=== PATIENT | male | born 1940 | race Caucasian/White ===

== ENCOUNTER → 2024-03-19 | Outpatient (CLI) | payer MEDICARE, SELFPAY ==
[2024-03-19 08:42] LABS: Albumin, Serum 4.8 gm/dL (3.4-4.8); Anion Gap 8 (7-16); BUN/Creatinine Ratio 18 Ratio (12-20); Blood Urea Nitrogen 16 mg/dL (9-23); Calcium 10.3 mg/dL (8.3-10.6); Calcium (Corrected) 10.3 mg/dL (8.5-10.1); Carbon Dioxide 28.4 mMol/L (20.0-31.0); Chloride 105 mMol/L (98-107); Creatinine (Component) 0.9 mg/dL (0.6-1.3); Glucose 97 mg/dL (74-106); Osmolality,Calculated 282 (275-295); Phosphorous 3.1 mg/dL (2.4-5.1); Sodium 141 mMol/L (136-145); eGFR > 60 See Note
== END | disposition home or self-care (01) ==
LOC: COPL 07:46
PROVIDERS: PCP Internal Medicine; Referring Provider Internal Medicine; Visit Provider Internal Medicine
DX: N17.9 Acute kidney failure, unspecified (principal); I10 Essential (primary) hypertension
CPT/HCPCS: 36415; 80069

== ENCOUNTER 2024-04-21 05:23 | Emergency (ER) | payer MEDICARE, SELFPAY ==
[2024-04-21 05:24] VITALS: BMI 22.8
[2024-04-21 05:42] VITALS: BP 133/83; PULSE 53; RESP 19; TEMP 36.8; O2SAT 99
[2024-04-21] MEDS: MORPHINE SULF INJ 10 MG/ML VIAL 2 MG IM (07:09)
[2024-04-21] MEDS: AMOXICILLIN 250 MG CAPSULE 1000 MG PO (07:10)
--- NOTE | 2024-04-21 07:11 | EDNOTE_ITS ---
ED Ear RME/HPI General Chief complaint: Ear Stated complaint: R EAR ACHE Time Seen by Provider: 04/21/24 06:29 Arrival date/time: 04/21/24 05:23 RME / HPI RME / HPI Narrative: 83-year-old patient presents emergency department with complaint of right earache for the past 2 days patient saw PCP and was prescribed ofloxacin otic but states that medication is not helping his ear pain. He denies loss of hearing and he denies ear drainage. Patient is requesting pain medications for the ear pain. Related Data Home Medications ?Medication ?Instructions ?Recorded ?Confirmed aspirin 325 mg tablet 325 mg PO QDAY ##0 08/04/13 12/25/23 prasugrel 10 mg tablet (Effient) 10 mg PO QDAY #0 tabs 03/09/17 12/25/23 metformin 850 mg tablet 850 mg PO TID 06/02/22 12/24/23 nitroglycerin 0.4 mg sublingual 0.4 mg buccal PRN PRN Chest Pain 06/02/22 12/24/23 tablet temazepam 30 mg capsule 30 mg PO QDAY PRN Insomnia 06/02/22 12/24/23 atorvastatin 80 mg tablet 80 mg PO HS 12/24/23 12/24/23 megestrol 400 mg/10 mL (40 mg/mL) 400 mg PO QDAY 12/24/23 12/24/23 oral suspension Previous Rx's ?Medication ?Instructions ?Recorded metoprolol succinate 25 mg 25 mg PO QDAY 30 days #30 tabs 12/26/23 tablet,extended release 24 hr acetaminophen 500 mg capsule 500 mg PO QID #40 caps 04/21/24 amoxicillin 500 mg capsule 500 mg PO TID #30 caps 04/21/24 Allergies Allergy/AdvReac Type Severity Reaction Status Date / Time No Known Allergies Allergy Verified 12/23/23 18:22 Review of Systems Review of Systems Systems Reviewed: All systems reviewed, normal except as documented Constitutional Constitutional: Reports system reviewed and no additional complaints, except as documented ENT Ears, Nose, Mouth, and Throat: Reports system reviewed and no additional complaints, except as documented and Reports otalgia Musculoskeletal Musculoskeletal: Reports system reviewed and no additional complaints, except as documented ED Exam General General appearance: Present alert and in no apparent distress Head Head exam: Present atraumatic and normocephalic Eye Eye exam: Present normal appearance ENT ENT exam: Present other (Right TM erythematous right ear canal also erythematous) Chest Chest inspection: Present normal inspection and symmetric chest wall rise Respiratory Respiratory exam: Present normal lung sounds bilaterally Cardiovascular Cardiovascular exam: Present regular rate and normal rhythm Extremities Exam Extremities exam: Present normal inspection and full ROM Neurological Exam Neurological exam: Present alert and oriented X3 Course Quality Measures none Orders Category Date Time Status Amoxicillin Cap [Amoxil Cap] Med 04/21/24 06:30 Discontinued 1,000 mg PO X1 ONE Morphine Inj Med 04/21/24 06:30 Discontinued 2 mg IM X1 ONE Vital Signs Vital signs: Vital Signs Temperature 98.2 F 04/21/24 05:42 Pulse Rate 53 L 04/21/24 05:42 Respiratory Rate 19 04/21/24 05:42 Blood Pressure 133/83 H 04/21/24 05:42 Pulse Oximetry (%) 99 04/21/24 05:42 Oxygen Delivery Method Room Air 04/21/24 05:42 Ear MDM Narrative MDM Narrative:: Signs and symptoms consistent with otitis media and otitis externa since patient is currently on ofloxacin otic I would DC patient with oral antibiotic for otitis media. Patient data External records reviewed:: None Clinical information provided by:: patient Social determinants that could affect healthcare access:: none Patient has the following chronic illnesses:: DM How is presenting disease/condition affected by chronic disease/condition?: uneffected by Evaluation data The following diagnostics were reviewed and interpreted by me:: other (specify) (na) Lab and/or radiology exams considered but not ordered:: na Interpretation Summary: na Medications / Prescriptions Medications or Prescriptions considered but not ordered:: meds considered and prescribed Medication administrations:: Medication Administration History Discontinued Medications Amoxicillin (Amoxicillin 250 Mg Capsule) 1,000 mg PO X1 ONE Stop: 04/21/24 06:31 Morphine Sulfate (Morphine Sulf Inj 10 Mg/Ml Vial) 2 mg IM X1 ONE Stop: 04/21/24 06:31 per above Consultations Consultation(s) initiated? (list below): No Diagnosis Most likely diagnosis given after review of the tests above:: na Admission Indicated Admission indicated?: not indicated Admission Request Was there a request for admission?: No Disposition Plan Disposition Plan: Discharge Discharge Attestation Discharge Attestation: The patient and all family members were given an opportunity to ask questions and understood the discharge instructions. Discharge instructions specifically effects, indications for sooner follow up or return to the emergency department, and the expected course of current diagnosis. Patient condition: Stable Discharge Plan Plan Patient Disposition: HOME (Self Care) Prescriptions/Referrals Prescriptions/Med Rec: New amoxicillin 500 mg capsule 500 mg PO TID Qty: 30 0RF acetaminophen 500 mg capsule 500 mg PO QID Qty: 40 0RF No Action aspirin 325 MG tablet 325 mg PO QDAY Qty: 0 Hold Instructions: Resume on 12/20/21. prasugrel [Effient] 10 MG tablet 10 mg PO QDAY Qty: 0 metformin 850 mg tablet 850 mg PO TID Patient Comments: TAKE 1 TABLET BY MOUTH THREE TIMES DAILY temazepam 30 mg capsule 30 mg PO QDAY PRN (Reason: Insomnia) Patient Comments: TAKE 1 CAPSULE BY MOUTH ONCE DAILY NEEDED nitroglycerin 0.4 mg Tablet, Sublingual 0.4 mg BUCCAL PRN PRN (Reason: Chest Pain) megestrol 400 mg/10 mL (40 mg/mL) Suspension 400 mg PO QDAY atorvastatin 80 mg tablet 80 mg PO HS metoprolol succinate 25 mg Tablet Extended Release 24 Hr 25 mg PO QDAY 30 Days Qty: 30 2RF Problem List Clinical Impression: Otitis media, Otalgia of right ear Patient/Caregiver Discharge Instructions Education Materials: ED Otitis Media Antibiotic ... Print Language: Kiswahili Stand Alone Forms: Bonnie Award Info., Patient Portal Info Letter
== END 2024-04-21 07:50 | disposition home or self-care (01) ==
LOC: SERX 07:30
PROVIDERS: Emergency Provider Emergency Medicine; PCP Internal Medicine
DX: H66.91 Otitis media, unspecified, right ear (principal)
CPT/HCPCS: 96372; 99284; J2270; A9270

== ENCOUNTER → 2024-05-23 | Outpatient (CLI) | payer MEDICARE, SELFPAY ==
[2024-05-23 09:51] LABS: Collection Type, Urine Clean Catch; Squamous Epithelial Cell,Urine 0 /hpf (0-5)
[2024-05-23 10:13] LABS: Basophils # (Auto) 0.1 Thou/mm3 (0.0-0.2); Basophils % (Auto) 1 % (0-2.5); Eosinophils # (Auto) 0.2 Thou/mm3 (0.0-0.5); Eosinophils % (Auto) 2 % (0-10); Hematocrit 36.1 % (41.0-53.0); Hemoglobin 11.6 g/dL (13.5-16.0); Immature Granulocytes % (Auto) 0 % (0-0); Immature Granulocytes Auto 0.01 Thou/mm3 (0.00-0.00); Lymphocytes # (Auto) 1.2 Thou/mm3 (1.0-4.8); Lymphocytes % (Auto) 18 % (10-50); Mean Corpuscular HGB Conc 32.1 g/dl (31.0-37.0); Mean Corpuscular Hemoglobin 27.4 pg (25.0-35.0); Mean Corpuscular Volume 85 fL (80-100); Monocytes # (Auto) 0.7 Thou/mm3 (0.0-0.8); Monocytes % (Auto) 11 % (0-12); Neutrophils # (Auto) 4.4 Thou/mm3 (1.8-7.7); Neutrophils % (Auto) 68 % (37-80); Nucleated Red Blood Cell % 0 /100 WBC (0); Platelet Count 309 Thou/mm3 (140-440); RDW Standard Deviation 46.7 fL (35.1-43.9); Red Blood Count 4.24 Miln/mm3 (4.50-5.90); White Blood Count 6.5 Thou/mm3 (3.8-10.6)
[2024-05-23 10:14] LABS: Bilirubin,Urine Negative (Negative); Blood,Urine Negative (Negative); Clarity,Urine Clear (Clear/Hazy); Color,Urine Yellow (Lt Yel-Yel); Glucose, Urine Negative (Negative); Ketones,Urine Negative (Negative); Leukocyte Esterase,Urine Negative (Negative); Nitrite,Urine Negative (Negative); PH,Urine 5.5 (5.0-7.0); Protein,Urine Trace (Neg - Trace); RBC,Urine 3 /hpf (0-3); Specific Gravity,Urine 1.019 (1.001-1.035); Urobilinogen,Urine Negative mg/dL (0.0-1.0); WBC,Urine 1 /hpf (0-5)
[2024-05-23 10:31] LABS: Glucose Estimated Average 120 mg/dL (80-131); Hemoglobin A1C 5.8 % Hgb (4.8-6.0)
[2024-05-23 10:44] LABS: Albumin, Serum 4.8 gm/dL (3.4-4.8); Alkaline Phosphatase 139 U/L (46-116); Anion Gap 12 (7-16); Aspartate Amino Transferase 13 U/L (0-34); BUN/Creatinine Ratio 10 Ratio (12-20); Bilirubin,Total 0.3 mg/dL (0.3-1.2); Blood Urea Nitrogen 10 mg/dL (9-23); Calcium 9.4 mg/dL (8.3-10.6); Calcium (Corrected) 9.4 mg/dL (8.5-10.1); Carbon Dioxide 24.9 mMol/L (20.0-31.0); Cardiac Risk Estimate 2.4 RATIO (4.0-6.7); Chloride 103 mMol/L (98-107); Cholesterol 128 mg/dL (132-200); Globulin 2.4 gm/dL (2.3-3.5); Glucose 91 mg/dL (74-106); HDL Cholesterol 53 mg/dL (40-60); LDL Cholesterol,Calculated 56 mg/dL (0-130); Osmolality,Calculated 278 (275-295); Potassium 4.9 mMol/L (3.4-5.1); Sodium 140 mMol/L (136-145); Total Protein 7.2 gm/dL (5.7-8.2); Triglycerides 95 mg/dL (30-150); eGFR > 60 See Note
[2024-05-23 10:46] LABS: Creatinine MALB Rnd Ur 160 mg/dL (30-125); Microalbumin Creat Ratio 13 mg/gCrea (<30); Microalbumin, Random Urine 21 mg/L (0-300)
[2024-05-23 10:53] LABS: Alanine Aminotransferase 10 U/L (10-49)
== END | disposition home or self-care (01) ==
LOC: COPL 09:01
PROVIDERS: PCP Internal Medicine; Referring Provider Internal Medicine; Visit Provider Internal Medicine
DX: I12.9 Hypertensive chronic kidney disease with stage 1 through stage 4 chronic kidney disease, or unspecified chronic kidney disease (principal); E11.22 Type 2 diabetes mellitus with diabetic chronic kidney disease; N18.30 Chronic kidney disease, stage 3 unspecified; E78.5 Hyperlipidemia, unspecified
CPT/HCPCS: 36415; 80053; 80061; 81001; 82043; 82570; 83036; 85025

== ENCOUNTER 2024-06-03 02:39 | Emergency (ER) | payer MEDICARE, SELFPAY ==
[2024-06-03 02:44] VITALS: BMI 24.3
[2024-06-03 02:54] VITALS: BP 131/68; PULSE 89; RESP 19; TEMP 36.6; O2SAT 97
--- NOTE | 2024-06-03 03:04 | XR_ITS ---
Examination: AP lateral chest 2 views Technique: Upright AP lateral chest 2 views Exam date and time: June 03, 2024 0318 hrs. Comparison July 31, 2023 Indications: Coughing shortness of breath today. Findings: Mild heart failure Mild enlargement cardiac contour CABG Prominent vascular congestion Early edema at the lung bases Small bilateral pleural effusions Moderate hyperexpansion Impression: COPD Mild heart failure
--- NOTE | 2024-06-03 04:33 | PD.EDURI ---
Upper Respiratory Inf. RME/HPI General Chief Complaint: Flu Like Symptoms Stated Complaint: cough and weakness Time Seen by Provider: 06/03/24 02:58 Arrival date/time: 06/03/24 02:39 83-year-old male reports with complaints of weakness cough congestion and bodyaches for several days. Patient is currently being treated with azithromycin for possible upper respiratory infection. Patient states that he is on day 3 of the medications with no improvement of symptoms. Patient also reports that his family has had about flu going around the house and his was recently diagnosed with pneumonia who is also on azithromycin. Patient states he has been taking medication as directed as well as [id number] medications for symptoms. He denies shortness of breath chest pain dizziness blurred vision ringing in ears nausea or vomiting or abdominal pain Limitations: no limitations Related Data Home Medications ?Medication ?Instructions ?Recorded ?Confirmed aspirin 325 mg tablet 325 mg PO QDAY ##0 08/04/13 12/25/23 prasugrel 10 mg tablet (Effient) 10 mg PO QDAY #0 tabs 03/09/17 12/25/23 metformin 850 mg tablet 850 mg PO TID 06/02/22 12/24/23 nitroglycerin 0.4 mg sublingual 0.4 mg buccal PRN PRN Chest Pain 06/02/22 12/24/23 tablet temazepam 30 mg capsule 30 mg PO QDAY PRN Insomnia 06/02/22 12/24/23 atorvastatin 80 mg tablet 80 mg PO HS 12/24/23 12/24/23 megestrol 400 mg/10 mL (40 mg/mL) 400 mg PO QDAY 12/24/23 12/24/23 oral suspension Previous Rx's ?Medication ?Instructions ?Recorded metoprolol succinate 25 mg 25 mg PO QDAY 30 days #30 tabs 12/26/23 tablet,extended release 24 hr acetaminophen 500 mg capsule 500 mg PO QID #40 caps 04/21/24 amoxicillin 500 mg capsule 500 mg PO TID #30 caps 04/21/24 cefdinir 300 mg capsule 300 mg PO BID 10 days #20 caps 06/03/24 Allergies Allergy/AdvReac Type Severity Reaction Status Date / Time No Known Allergies Allergy Verified 06/03/24 02:45 Review of Systems Constitutional Constitutional: Reports fatigue, Denies fever(s) and Reports weakness ENT Ears, Nose, Mouth, and Throat: Denies sinus pressure, Denies sore throat and Denies vertigo Cardiovascular Cardiovascular: Denies chest pain, Denies dyspnea and Denies syncope Respiratory Respiratory: Reports cough and Denies dyspnea Gastrointestinal Gastrointestinal: Denies nausea and Denies vomiting Integumentary/Breasts Skin/Breast: Denies rash and Denies skin pain Neurologic Neurologic: Denies syncope, Denies vertigo and Reports weakness Endocrine Endocrine: Reports fatigue ED Exam General Limitations: Present no limitations General appearance: Present alert and lethargic Head Head exam: Present atraumatic Eye Eye exam: Present normal appearance, PERRL and EOMI ENT ENT exam: Present normal exam, normal oropharynx and mucous membranes moist Neck Neck exam: Present normal inspection, full ROM and trachea midline Chest Chest inspection: Present normal inspection and symmetric chest wall rise Respiratory Respiratory exam: Present normal lung sounds bilaterally Cardiovascular Cardiovascular exam: Present regular rate, normal rhythm and normal heart sounds Abdominal Exam Abdominal exam: Present soft and normal bowel sounds Extremities Exam Extremities exam: Present normal inspection and full ROM Back Exam Back exam: Present normal inspection and full ROM Neurological Exam Neurological exam: Present alert, oriented X3 and CN II-XII intact Psychiatric Psychiatric exam: Present normal affect and normal mood Skin Skin exam: Present warm, dry, intact and normal color Course Course Course Narrative: 83-year-old male reports with complaints of cough weakness and bodyaches for several days. Patient's COVID and influenza are negative chest x-ray shows patchy infiltrates CBC is unremarkable CMP is remarkable for elevated liver enzymes patient was given Rocephin 1 g IV along with normal saline 1 g patient tolerated well he will be discharged home as he is stable and nontoxic-appearing with stable vital signs, in no respiratory distress as his oxygen saturations are 100% on room air. He will be prescribed cefdinir 300 mg twice daily x 7 days and we will discontinue the azithromycin given his elevated liver enzymes as well as drug failure he is advised to follow-up with his primary care provider in 24-48 hours to address pneumonia as well as elevated liver enzymes or return to the emergency department if symptoms should worsen. I consulted with Dr. Fish who agreed with this plan Quality Measures none Orders Category Date Time Status Bedside COVID-19 Antigen Test NOW Care 06/03/24 03:04 Active Bedside Influenza A&B Antigen Test NOW Care 06/03/24 03:04 Completed XR chest 2V Stat Exams 06/03/24 03:04 Taken CBC Stat Lab 06/03/24 04:30 Completed CMP [Comprehensive Metabolic Panel] Stat Lab 06/03/24 04:30 Completed Sodium Chloride 0.9% 1000 ml [Ns] 1,000 ml Med 06/03/24 03:36 Discontinued IV 999 mls/hr cefTRIAXone [Rocephin] 1,000 mg Med 06/03/24 05:34 Active Sodium Chloride 0.9% (Partial) [NS (Partial)] 50 ml IV X1 cefTRIAXone/D5w 1gm IV premix [Rocephin/D5w 1gm IV Med 06/03/24 04:48 Discontinued premix] 50 ml IV X1 Vital Signs Vital signs: Vital Signs Temperature 97.8 F 06/03/24 02:54 Pulse Rate 89 06/03/24 02:54 Respiratory Rate 19 06/03/24 02:54 Blood Pressure 131/68 H 06/03/24 02:54 Pulse Oximetry (%) 97 06/03/24 02:54 Oxygen Delivery Method Room Air 06/03/24 02:54 Upper Respiratory Infection Patient data External records reviewed:: None Clinical information provided by:: patient Social determinants that could affect healthcare access:: none Patient has the following chronic illnesses:: none How is presenting disease/condition affected by chronic disease/condition?: no chronic disease Evaluation data The following diagnostics were reviewed and interpreted by me:: lab results and radiology exam(s) Lab and/or radiology exams considered but not ordered:: none Interpretation Summary: Patchy infiltrates noted on chest x-ray, flu and COVID-negative Medications / Prescriptions Medications or Prescriptions considered but not ordered:: None Medication administrations:: Medication Administration History Ceftriaxone Sodium 1,000 mg/ (Sodium Chloride) 50 mls @ 100 mls/hr IV X1 ONE Stop: 06/03/24 06:03 Last Admin: 06/03/24 05:37 Dose: 100 mls/hr Documented By: TC Discontinued Medications Sodium Chloride (Ns) 1,000 mls @ 999 mls/hr IV .Q1H1M ONE Stop: 06/03/24 04:36 Last Admin: 06/03/24 04:38 Dose: 999 mls/hr Documented By: EF Ceftriaxone Sodium/Dextrose (Rocephin/D5w 1gm Iv Premix) 50 mls @ 100 mls/hr IV X1 ONE Stop: 06/03/24 05:17 Last Admin: 06/03/24 05:35 Dose: Not Given Documented By: TC Non-Admin Reason: Duplicate Medication on eMAR As above Consultations Consultation(s) initiated? (list below): No Diagnosis Upper Respiratory Differential Diagnosis: upper respiratory infection, bronchitis and influenza Most likely diagnosis given after review of the tests above:: Pneumonia Admission Indicated Admission indicated?: not indicated Admission Request Was there a request for admission?: No Disposition Plan Disposition Plan: Discharge Discharge Attestation Discharge Attestation: The patient and all family members were given an opportunity to ask questions and understood the discharge instructions. Discharge instructions specifically effects, indications for sooner follow up or return to the emergency department, and the expected course of current diagnosis. Patient condition: Stable Discharge Plan Plan Patient Disposition: HOME (Self Care) Prescriptions/Referrals Prescriptions/Med Rec: New cefdinir 300 mg capsule 300 mg PO BID 10 Days Qty: 20 0RF No Action aspirin 325 MG tablet 325 mg PO QDAY Qty: 0 prasugrel [Effient] 10 MG tablet 10 mg PO QDAY Qty: 0 metformin 850 mg tablet 850 mg PO TID Patient Comments: TAKE 1 TABLET BY MOUTH THREE TIMES DAILY temazepam 30 mg capsule 30 mg PO QDAY PRN (Reason: Insomnia) Patient Comments: TAKE 1 CAPSULE BY MOUTH ONCE DAILY NEEDED nitroglycerin 0.4 mg Tablet, Sublingual 0.4 mg BUCCAL PRN PRN (Reason: Chest Pain) amoxicillin 500 mg capsule 500 mg PO TID Qty: 30 0RF acetaminophen 500 mg capsule 500 mg PO QID Qty: 40 0RF megestrol 400 mg/10 mL (40 mg/mL) Suspension 400 mg PO QDAY atorvastatin 80 mg tablet 80 mg PO HS metoprolol succinate 25 mg Tablet Extended Release 24 Hr 25 mg PO QDAY 30 Days Qty: 30 2RF Referrals: Kevin Huddleston MD [Primary Care Provider] - In 1 week Problem List Clinical Impression: Pneumonia, Elevated liver enzymes Patient/Caregiver Discharge Instructions Education Materials: ED Pneumonia (Adult) Additional Instructions: Pneumonia-take medications as directed hydrate well follow-up with your primary care provider in 24 to 48 hours Elevated liver enzymes follow-up with your primary care provider in 2 to 3 days for reevaluation of your liver enzymes Print Language: Bangladeshi Stand Alone Forms: Bonnie Award Info., Patient Portal Info Letter
[2024-06-03 04:36] LABS: Basophils % (Auto) 0 % (0-2.5); Eosinophils % (Auto) 0 % (0-10); Hematocrit 31.2 % (41.0-53.0); Hemoglobin 10.5 g/dL (13.5-16.0); Immature Granulocytes % (Auto) 0 % (0-0); Immature Granulocytes Auto 0.01 Thou/mm3 (0.00-0.00); Lymphocytes # (Auto) 0.9 Thou/mm3 (1.0-4.8); Lymphocytes % (Auto) 16 % (10-50); Mean Corpuscular HGB Conc 33.7 g/dl (31.0-37.0); Mean Corpuscular Hemoglobin 27.2 pg (25.0-35.0); Mean Corpuscular Volume 81 fL (80-100); Monocytes # (Auto) 0.7 Thou/mm3 (0.0-0.8); Monocytes % (Auto) 12 % (0-12); Neutrophils # (Auto) 4.2 Thou/mm3 (1.8-7.7); Neutrophils % (Auto) 72 % (37-80); Nucleated Red Blood Cell % 0 /100 WBC (0); Platelet Count 297 Thou/mm3 (140-440); RDW Standard Deviation 45.2 fL (35.1-43.9); Red Blood Count 3.86 Miln/mm3 (4.50-5.90); White Blood Count 5.8 Thou/mm3 (3.8-10.6)
[2024-06-03] MEDS: SODIUM CHLORIDE 0.9% 1000 ML 1,000 ML 999 ML IV (04:38)
[2024-06-03 04:52] LABS: Alanine Aminotransferase 204 U/L (10-49); Albumin, Serum 4.1 gm/dL (3.4-4.8); Albumin/Globulin Ratio 1.6 (1.2-2.2); Alkaline Phosphatase 104 U/L (46-116); Anion Gap 10 (7-16); Aspartate Amino Transferase 367 U/L (0-34); BUN/Creatinine Ratio 20 Ratio (12-20); Bilirubin,Total 0.5 mg/dL (0.3-1.2); Blood Urea Nitrogen 20 mg/dL (9-23); Calcium 9.1 mg/dL (8.3-10.6); Calcium (Corrected) 9.1 mg/dL (8.5-10.1); Carbon Dioxide 25.6 mMol/L (20.0-31.0); Chloride 98 mMol/L (98-107); Estimated Creatinine Clearance 57.9 mL/min (>60); Globulin 2.5 gm/dL (2.3-3.5); Glucose 104 mg/dL (74-106); Osmolality,Calculated 270 (275-295); Potassium 4.5 mMol/L (3.4-5.1); Sodium 134 mMol/L (136-145); Total Protein 6.6 gm/dL (5.7-8.2); eGFR > 60 See Note
[2024-06-03 05:02] VITALS: BP 131/87; PULSE 94; RESP 16; O2SAT 100
[2024-06-03] MEDS: SODIUM CHLORIDE 0.9% IV (05:37)
[2024-06-03] MEDS: CEFTRIAXONE IV (05:37)
[2024-06-03 08:10] VITALS: BP 131/72; PULSE 77; RESP 18; TEMP 37.5; O2SAT 98
== END 2024-06-03 08:10 | disposition home or self-care (01) ==
PROVIDERS: Physician Assistant; Emergency Provider Emergency Medicine; PCP Internal Medicine
DX: J18.9 Pneumonia, unspecified organism (principal)
CPT/HCPCS: 36415; 71046; 80053; 85025; 87400; 87811; 96361; 96365; 99284; J0696; J3490; J7030

== ENCOUNTER 2024-06-06 13:59 | Inpatient (IN) | payer MEDICARE, SELFPAY ==
--- NOTE | 2024-06-06 14:41 | XR_ITS ---
Examination: AP chest single view Technique one AP portable upright chest single view Exam date and time: June 06, 2024 1539 hours Comparison June 03, 2024 INDICATIONS: Difficulty breathing this week. FINDINGS: Mild heart failure Mild enlargement cardiac contour CABG Prominent vascular congestion Pneumonia and/or edema at the lung bases Prominent osteopenia IMPRESSION: Pneumonia and/or edema at the lung bases, clinical correlation advised
[2024-06-06] MEDS: SODIUM CHLORIDE 0.9% 1000 ML 1,000 ML 80 ML IV (15:28)
[2024-06-06 15:56] LABS: Basophils % (Auto) 0 % (0-2.5); Eosinophils % (Auto) 0 % (0-10); Hematocrit 29.7 % (41.0-53.0); Hemoglobin 9.8 g/dL (13.5-16.0); Immature Granulocytes % (Auto) 1 % (0-0); Immature Granulocytes Auto 0.08 Thou/mm3 (0.00-0.00); Lymphocytes # (Auto) 1.1 Thou/mm3 (1.0-4.8); Lymphocytes % (Auto) 14 % (10-50); Mean Corpuscular Hemoglobin 26.6 pg (25.0-35.0); Mean Corpuscular Volume 81 fL (80-100); Monocytes # (Auto) 0.8 Thou/mm3 (0.0-0.8); Monocytes % (Auto) 10 % (0-12); Neutrophils # (Auto) 5.8 Thou/mm3 (1.8-7.7); Neutrophils % (Auto) 75 % (37-80); Nucleated Red Blood Cell % 0 /100 WBC (0); Platelet Count 333 Thou/mm3 (140-440); Red Blood Count 3.68 Miln/mm3 (4.50-5.90); White Blood Count 7.7 Thou/mm3 (3.8-10.6)
[2024-06-06 16:00] VITALS: PULSE 76; PULSE 77; RESP 30; TEMP 36.6; O2SAT 94
[2024-06-06 16:05] LABS: INR 1.3 (0.9-1.3); Prothrombin Time 13.5 Seconds (9.0-12.2)
[2024-06-06 16:10] LABS: Alanine Aminotransferase 153 U/L (10-49); Albumin, Serum 3.6 gm/dL (3.4-4.8); Albumin/Globulin Ratio 1.5 (1.2-2.2); Alkaline Phosphatase 115 U/L (46-116); Anion Gap 9 (7-16); Aspartate Amino Transferase 114 U/L (0-34); BUN/Creatinine Ratio 13 Ratio (12-20); Bilirubin,Total 0.4 mg/dL (0.3-1.2); Blood Urea Nitrogen 10 mg/dL (9-23); Calcium 8.9 mg/dL (8.3-10.6); Calcium (Corrected) 9.2 mg/dL (8.5-10.1); Carbon Dioxide 25.7 mMol/L (20.0-31.0); Chloride 102 mMol/L (98-107); Creatinine (Component) 0.8 mg/dL (0.6-1.3); Globulin 2.4 gm/dL (2.3-3.5); Glucose 102 mg/dL (74-106); Osmolality,Calculated 272 (275-295); Potassium 4.2 mMol/L (3.4-5.1); Sodium 137 mMol/L (136-145); eGFR > 60 See Note
[2024-06-06] MEDS: PIPER/TAZO 2.25 GM 2.25 GM/50 ML BAG IV (16:12)
--- NOTE | 2024-06-06 19:28 | PD.NEPHHP ---
Documentation for date of: 06/06/24 History of Present Illness History of Present Illness Chief complaint: SOB, fatigue, failure to thrive History of present illness: Mr. Nelson is a 83 year old male with coronary artery disease(under Dr. 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 Patient was given p.o. antibiotics and sent home. Son brought him to my office and he was extremely weak with functional decline. Sent him to the hospital as a direct admit for evaluation of dehydration, hypotension, pneumonia, failure to thrive. Patient has been losing significant amount of weight since his dental workup last year. He lost more than 30 pounds. PMHx as above. Allergies: none PSHx: multivessel CABG (1995) and multiple stents as above, right IOL replacement FHx: heart disease and multiple cancers. Social Hx: former smoker. Home medications included Tylenol, aspirin, Lipitor, cefdinir, Megace, metformin, metoprolol, nitro as needed, Effient, temazepam Labs showed white count 7.7, hemoglobin 9.8, platelets 333. INR 1.3. Renal panel normal, AST 114, ALT 153, albumin 3.6, urinalysis negative. Chest x-ray showed pneumonia/edema at the lung bases. Patient admitted to the hospital with pneumonia, elevated liver enzymes and failure to thrive with dehydration. Home medications have been reconciled. Review of Systems Review of Systems Narrative Review of Systems: CONSTITUTIONAL: Patient complaining of fatigue, weight loss HEENT: Hearing issues CARDIOVASCULAR: Patient denies any chest pain, shortness of breath, swelling in the lower extremities. PULMONARY: Patient denies any shortness of breath, cough. GASTROINTESTINAL: Patient denies any abdominal pain, constipation, nausea, vomiting, diarrhea. Decreased appetite GENITOURINARY: Patient denies any urinary symptoms of burning or frequency or hematuria, denies any form in the urine. SKIN: Denies any rash. MUSCULOSKELETAL: Arthritis, gait imbalance NEUROLOGICAL: Denies any neurological problems of strokes, seizures or confusion. Denies any memory problems. PSYCHIATRIC: Denies any depression or anxiety. LYMPHATICS : No lymphadenopathy Past Medical History Past Medical History NEUROLOGIC: Negative Neurological Disorders or Seizures CARDIAC: Positive Cardiac Disorders, Myocardial Infarction, Angina, Coronary Artery Disease, Hypercholesterolemia, Congestive Heart Failure and Hypertension RESPIRATORY: Positive Pneumonia; Negative Chronic Obstructive Pulmonary Disease (COPD) or Asthma GASTROINTESTINAL: Positive Hepatitis; Negative Gastrointestinal Disorders GENITOURINARY: Negative Genitourinary Disorders or Renal Disease REPRODUCTIVE: Negative Breast Cancer MUSCULOSKELETAL: Negative Musculoskeletal Disorders ENT: Positive Cataracts ENDOCRINE: Positive Endocrine Disorders and Diabetes Mellitus Type 2; Negative Diabetes Mellitus Type 1 HEMATOLOGIC: Negative Blood Disorders or Sickle Cell Disease OTHER HISTORY: Positive Hospitalization and Measles; Negative Autoimmune Disease, Down Syndrome, Developmental Delay, Shingles, Falls, Blood Transfusions, Anesthesia Reactions, Organ Transplant, Chemotherapy, Radiation Therapy, Hyperbaric Therapy, MRSA, VRSA, Vancomycin-Resistant Enterococci, Clostridium Difficile, Cancer or Breast Cancer Family History FAMILY HISTORY: Positive Family Cardiac Disorders and Family Cancer; Negative Family Psychiatric Problems, Family Respiratory Disorders, Family Gastrointestinal Problems, Family Surgery or Family Anesthesia Reaction Surgical History SURGICAL: Positive Cardiac Surgery, Open Heart Surgery, Coronary Artery Bypass Graft, Coronary Stent, Cardiac Catheterization, Angiogram, Eye Surgery and Abdominal Surgery; Negative Endocrine Surgery, Ear Surgery, Nephrectomy, Joint Replacement, Neurologic Surgery, Vasectomy or Organ Transplant Social History SMOKING STATUS: Former smoker SECOND HAND EXPOSURE: No Meds Home Medications and Allergies Home Medications ?Medication ?Instructions ?Recorded ?Confirmed ?Type aspirin 325 mg tablet 325 mg PO QDAY ##0 08/04/13 12/25/23 History prasugrel 10 mg tablet (Effient) 10 mg PO QDAY #0 tabs 03/09/17 12/25/23 History metformin 850 mg tablet 850 mg PO TID 06/02/22 12/24/23 History nitroglycerin 0.4 mg sublingual 0.4 mg buccal PRN PRN Chest Pain 06/02/22 12/24/23 History tablet temazepam 30 mg capsule 30 mg PO QDAY PRN Insomnia 06/02/22 12/24/23 History atorvastatin 80 mg tablet 80 mg PO HS 12/24/23 12/24/23 History megestrol 400 mg/10 mL (40 mg/mL) 400 mg PO QDAY 12/24/23 12/24/23 History oral suspension Allergies Allergy/AdvReac Type Severity Reaction Status Date / Time No Known Allergies Allergy Verified 06/03/24 02:45 Exam Vital Signs Temp Pulse Resp BP Pulse Ox O2 Del Method 36.1 C 75 19 145/80 H 96 Room Air 06/07/24 04:00 06/07/24 04:00 06/07/24 04:00 06/07/24 04:00 06/07/24 04:00 06/07/24 04:00 Narrative Exam GENERAL APPEARANCE: Patient is very skinny-lost weight NECK: Neck supple, no JVD or bruit CARDIOVASCULAR: Heart regular, no murmurs LUNGS/CHEST: Mild wheezing noted ABDOMEN: Soft, nontender, nondistended. No masses. Normal bowel sounds. EXTREMITIES: No edema, clubbing or cyanosis. SKIN: Skin exam normal without any rashes MUSCULOSKELETAL: In bed NEUROLOGICAL : Patient seems to be slightly confused, memory lapses noted Results: Labs 06/09/24 06:09 06/09/24 06:09 Labs: Short CBC 06/06/24 Range/Units 15:26 WBC 7.7 (3.8-10.6) Thou/mm3 Hgb 9.8 L (13.5-16.0) g/dL Hct 29.7 L (41.0-53.0) % Plt Count 333 D (140-440) Thou/mm3 BMP 06/06/24 15:26 Sodium 137 Potassium 4.2 Chloride 102 Carbon Dioxide 25.7 BUN 10 Creatinine 0.8 Glucose 102 Calcium 8.9 Liver Function 06/06/24 Range/Units 15:26 Total Bilirubin 0.4 (0.3-1.2) mg/dL AST 114 H (0-34) U/L ALT 153 H (10-49) U/L Alkaline Phosphatase 115 (46-116) U/L Albumin 3.6 (3.4-4.8) gm/dL Assessment & Plan Assessment and plan (1) Pneumonia: Status: Acute Assessment and plan: Chest x-ray showed bilateral pneumonia. Continue with antibiotics. Continue with IV fluids, broad-spectrum antibiotics, oxygen (2) Diabetes: Status: Acute Assessment and plan: Accu-Cheks, sliding scale. Hold metformin (3) Hypertension: Status: Acute Assessment and plan: Blood pressure currently on the lower side. Hold BP meds (4) History of coronary artery bypass surgery: Status: Acute Assessment and plan: Patient denies any chest pain. Will monitor closely. (5) Elevated liver enzymes: Status: Acute Assessment and plan: Probably related to the recent viral illness. Will monitor closely. Patient asymptomatic with any abdominal pain. Additional Assessment & Plan Additional Plan: Estimated length of stay 3 days GI prophylaxis not needed DVT prophylaxis Praluent Disposition-Home versus rehab. Will discuss with family CODE STATUS DNR/DNI Quality Measures Quality Measures VTE prophylaxis Advance care planning discussed with:: spouse
[2024-06-06 20:00] VITALS: BP 129/65; PULSE 79; PULSE 89; RESP 19; TEMP 36.2; O2SAT 97
[2024-06-06 20:50] LABS: Magnesium 1.5 mg/dL (1.6-2.6); Phosphorous 2.1 mg/dL (2.4-5.1)
--- NOTE | 2024-06-06 21:02 | PC.NURSE ---
pt had a run of levar, Dr. Huddleston was made aware. New orders for pt to check Mag and phosphorus levels.
[2024-06-06] MEDS: TEMAZEPAM 15 MG CAPSULE 30 MG PO (22:00)
[2024-06-06] MEDS: Magnesium Sulfate 2 GM Ivpb 2 GM/50 ML BAG IV (22:02)
[2024-06-06] MEDS: POT PHOS 15 mMol in NS 250 ML 15 MMOL/250 ML BAG 62.5 MMOL IV (22:02)
[2024-06-07] VITALS (7 sets, daily range): BP systolic 122–147; BP diastolic 65–80; PULSE 75–100; RESP 16–21; TEMP 36.1–36.6; O2SAT 96–98
[2024-06-07] MEDS: PIPER/TAZO 2.25 GM 2.25 GM/50 ML BAG IV ×5 (00:46→23:17)
[2024-06-07] MEDS: SODIUM CHLORIDE 0.9% 1000 ML 1,000 ML 80 ML IV (06:09)
[2024-06-07] MEDS: PRASUGREL 5 MG 10 MG PO (09:03)
[2024-06-07] MEDS: MEGESTROL ACET SUSP 400 MG/10 ML UDC PO (09:03)
[2024-06-07] MEDS: METOPROLOL SUCCINATE XL 25 MG TABCR PO (09:03)
--- NOTE | 2024-06-07 13:01 | PC.SS ---
POULTRY CULLER conducted bedside contact with the patient conduct initial assessment and to discuss discharge planning.? Patient confirmed demographic information.? Patient resides at home with spouse.? Patient does not utilize DME to assist with ambulation.? Patient does not utilize home oxygen.? Patient describes ability to complete ADL? independently.? Patient identified spouse, Rashmi Nelson ; as medical surrogate decision maker.? Patient?s PCP is Dr. Huddleston.? Patient?s marketing clerk is Dr. Penn.? Patient utilizes [facility] for medication services.? Patient does not participate with dialysis.? Plan is for the patient to return home at the time of discharge.? Family will provide transportation on behalf of the patient. No discharge needs identified by the patient.? No further intervention required at this time, social work associate will be available to address any further concerns.? Next of Kin: Reecedonovan Nelson D/C Plan: Home
[2024-06-07 13:20] LABS: Cocci Serology, IgM Negative (Negative)
--- NOTE | 2024-06-07 13:30 | PD.NEPHPROG ---
Documentation for date of: 06/07/24 Subjective Subjective Interval history: Mr. Nelson is a 83 year old male with coronary artery disease(under Dr. 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 Patient was given p.o. antibiotics and sent home. Son brought him to my office and he was extremely weak with functional decline. Sent him to the hospital as a direct admit for evaluation of dehydration, hypotension, pneumonia, failure to thrive. Patient has been losing significant amount of weight since his dental workup last year. He lost more than 30 pounds. PMHx as above. Allergies: none PSHx: multivessel CABG (1995) and multiple stents as above, right IOL replacement FHx: heart disease and multiple cancers. Social Hx: former smoker. Home medications included Tylenol, aspirin, Lipitor, cefdinir, Megace, metformin, metoprolol, nitro as needed, Effient, temazepam Labs showed white count 7.7, hemoglobin 9.8, platelets 333. INR 1.3. Renal panel normal, AST 114, ALT 153, albumin 3.6, urinalysis negative. Chest x-ray showed pneumonia/edema at the lung bases. Patient admitted to the hospital with pneumonia, elevated liver enzymes and failure to thrive with dehydration. Home medications have been reconciled. 06/07/2024 patient currently seen in telemetry. Did have a run of bigeminy last night. Magnesium, potassium, phosphorus replaced. at bedside. DNR status. Liver enzymes trending down. Held diuretics due to fluid overload. He has history of CHF/CABG. Home medications are resumed. Requesting temazepam for sleep. Review of Systems Review of Systems Narrative Review of Systems: CONSTITUTIONAL: Patient complaining of fatigue, weight loss HEENT: Hearing issues CARDIOVASCULAR: Patient denies any chest pain, shortness of breath, swelling in the lower extremities. PULMONARY: Patient denies any shortness of breath, cough. GASTROINTESTINAL: Patient denies any abdominal pain, constipation, nausea, vomiting, diarrhea. Decreased appetite GENITOURINARY: Patient denies any urinary symptoms of burning or frequency or hematuria, denies any form in the urine. SKIN: Denies any rash. MUSCULOSKELETAL: Arthritis, gait imbalance NEUROLOGICAL: Denies any neurological problems of strokes, seizures or confusion. Denies any memory problems. PSYCHIATRIC: Denies any depression or anxiety. LYMPHATICS : No lymphadenopathy Exam Vital Signs Temp Pulse Resp BP Pulse Ox O2 Del Method 36.2 C 76 17 129/66 96 Room Air 06/07/24 08:00 06/07/24 09:03 06/07/24 08:00 06/07/24 09:03 06/07/24 08:00 06/07/24 08:00 Narrative Exam GENERAL APPEARANCE: Patient is very skinny-lost weight NECK: Neck supple, no JVD or bruit CARDIOVASCULAR: Heart regular, no murmurs LUNGS/CHEST: Mild wheezing noted ABDOMEN: Soft, nontender, nondistended. No masses. Normal bowel sounds. EXTREMITIES: No edema, clubbing or cyanosis. SKIN: Skin exam normal without any rashes MUSCULOSKELETAL: In bed NEUROLOGICAL : Patient seems to be slightly confused, memory lapses noted Objective Labs 06/09/24 06:09 06/09/24 06:09 Labs: Laboratory Results - last 24 hr 06/06/24 06/06/24 15:26 20:07 WBC 7.7 RBC 3.68 L Hgb 9.8 L Hct 29.7 L MCV 81 MCH 26.6 MCHC 33.0 RDW Std Deviation 46.0 H Plt Count 333 D Neut % (Auto) 75 Lymph % (Auto) 14 [place] % (Auto) 10 Eos % (Auto) 0 Baso % (Auto) 0 Neut # (Auto) 5.8 Lymph # (Auto) 1.1 [place] # (Auto) 0.8 Eos # (Auto) 0.0 Baso # (Auto) 0.0 Immature Gran # (Auto) 0.08 H Absolute Nucleated RBC 0.00 Immature Gran % 1 H Nucleated RBC % 0 PT 13.5 H INR 1.3 Sodium 137 Potassium 4.2 Chloride 102 Carbon Dioxide 25.7 Anion Gap 9 BUN 10 Creatinine 0.8 Estim Creat Clear Calc Not Performed. eGFR > 60 BUN/Creatinine Ratio 13 Glucose 102 Calculated Osmolality 272 L Calcium 8.9 Corrected Calcium 9.2 Phosphorus 2.1 L Magnesium 1.5 L Total Bilirubin 0.4 AST 114 H ALT 153 H Alkaline Phosphatase 115 Total Protein 6.0 Albumin 3.6 Globulin 2.4 Albumin/Globulin Ratio 1.5 Coccidioides IgM Ab Negative Assessment & Plan Assessment and plan (1) Pneumonia: Status: Acute Assessment and plan: Chest x-ray showed bilateral pneumonia. Continue with antibiotics. Continue with broad-spectrum antibiotics, oxygen Nebulizer treatments ordered (2) Diabetes: Status: Acute Assessment and plan: Accu-Cheks, sliding scale. Hold metformin (3) Hypertension: Status: Acute Assessment and plan: Blood pressure currently on the lower side. Hold BP meds (4) History of coronary artery bypass surgery: Status: Acute Assessment and plan: Patient denies any chest pain. Will monitor closely. (5) Elevated liver enzymes: Status: Acute Assessment and plan: Probably related to the recent viral illness. Will monitor closely. Patient asymptomatic with any abdominal pain. Additional Assessment & Plan Additional Plan: Estimated length of stay 3 days GI prophylaxis not needed DVT prophylaxis Praluent Disposition-Home versus rehab. Will discuss with family CODE STATUS DNR/DNI Quality - progress note Quality Measures Quality Measures: VTE prophylaxis Reason for Continued Stay Reason for Continued Stay: further monitoring
--- NOTE | 2024-06-07 22:04 | PC.NURSE ---
pt requesting insomia medication, as pt is taking medication at home but unaware of it's name. called admitting MD stallworth, per to start his temazepam home meds
[2024-06-07] MEDS: TEMAZEPAM 15 MG CAPSULE 30 MG PO (22:21)
[2024-06-08] VITALS (7 sets, daily range): BP systolic 120–159; BP diastolic 74–94; PULSE 73–98; RESP 18–29; TEMP 36.4–37.1; O2SAT 95–98
[2024-06-08] MEDS: PIPER/TAZO 2.25 GM 2.25 GM/50 ML BAG IV ×4 (05:06→23:28)
[2024-06-08 06:10] LABS: Basophils % (Auto) 0 % (0-2.5); Eosinophils % (Auto) 0 % (0-10); Hematocrit 38.2 % (41.0-53.0); Hemoglobin 12.6 g/dL (13.5-16.0); Immature Granulocytes % (Auto) 1 % (0-0); Immature Granulocytes Auto 0.09 Thou/mm3 (0.00-0.00); Lymphocytes % (Auto) 10 % (10-50); Mean Corpuscular Hemoglobin 26.4 pg (25.0-35.0); Mean Corpuscular Volume 80 fL (80-100); Monocytes # (Auto) 0.7 Thou/mm3 (0.0-0.8); Monocytes % (Auto) 7 % (0-12); Neutrophils # (Auto) 7.8 Thou/mm3 (1.8-7.7); Neutrophils % (Auto) 82 % (37-80); Nucleated Red Blood Cell % 0 /100 WBC (0); Platelet Count 429 Thou/mm3 (140-440); RDW Standard Deviation 45.9 fL (35.1-43.9); Red Blood Count 4.78 Miln/mm3 (4.50-5.90); White Blood Count 9.5 Thou/mm3 (3.8-10.6)
[2024-06-08 06:49] LABS: Alanine Aminotransferase 115 U/L (10-49); Albumin, Serum 4.5 gm/dL (3.4-4.8); Albumin/Globulin Ratio 1.5 (1.2-2.2); Alkaline Phosphatase 143 U/L (46-116); Anion Gap 15 (7-16); Aspartate Amino Transferase 55 U/L (0-34); BUN/Creatinine Ratio 9 Ratio (12-20); Bilirubin,Total 0.8 mg/dL (0.3-1.2); Blood Urea Nitrogen 8 mg/dL (9-23); Calcium 10.1 mg/dL (8.3-10.6); Calcium (Corrected) 10.1 mg/dL (8.5-10.1); Carbon Dioxide 23.9 mMol/L (20.0-31.0); Chloride 99 mMol/L (98-107); Creatinine (Component) 0.9 mg/dL (0.6-1.3); Globulin 3.1 gm/dL (2.3-3.5); Glucose 115 mg/dL (74-106); Magnesium 1.6 mg/dL (1.6-2.6); Osmolality,Calculated 274 (275-295); Phosphorous 3.2 mg/dL (2.4-5.1); Potassium 4.9 mMol/L (3.4-5.1); Sodium 138 mMol/L (136-145); Total Protein 7.6 gm/dL (5.7-8.2); eGFR > 60 See Note
[2024-06-08] MEDS: METOPROLOL SUCCINATE XL 25 MG TABCR PO (08:09)
[2024-06-08] MEDS: MEGESTROL ACET SUSP 400 MG/10 ML UDC PO (08:09)
[2024-06-08] MEDS: GLYCOPYRROLATE 1 MG TABLET PO (08:09)
[2024-06-08] MEDS: FUROSEMIDE INJ 10 MG/ML VIAL 2 ML 20 MG IVP (08:09)
[2024-06-08] MEDS: PRASUGREL 5 MG 10 MG PO (08:11)
--- NOTE | 2024-06-08 09:05 | PD.NEPHPROG ---
Documentation for date of: 06/08/24 Subjective Subjective Interval history: Mr. Nelson is a 83 year old male with coronary artery disease(under Dr. 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 Patient was given p.o. antibiotics and sent home. Son brought him to my office and he was extremely weak with functional decline. Sent him to the hospital as a direct admit for evaluation of dehydration, hypotension, pneumonia, failure to thrive. Patient has been losing significant amount of weight since his dental workup last year. He lost more than 30 pounds. PMHx as above. Allergies: none PSHx: multivessel CABG (1995) and multiple stents as above, right IOL replacement FHx: heart disease and multiple cancers. Social Hx: former smoker. Home medications included Tylenol, aspirin, Lipitor, cefdinir, Megace, metformin, metoprolol, nitro as needed, Effient, temazepam Labs showed white count 7.7, hemoglobin 9.8, platelets 333. INR 1.3. Renal panel normal, AST 114, ALT 153, albumin 3.6, urinalysis negative. Chest x-ray showed pneumonia/edema at the lung bases. Patient admitted to the hospital with pneumonia, elevated liver enzymes and failure to thrive with dehydration. Home medications have been reconciled. 06/08/2024 patient currently seen in telemetry. at bedside. She requested DNR status for him. Also requested rehab as patient has significant functional decline. Will start him on protein shakes. Physical therapy ordered. Liver enzymes improving. Gave him 1 dose of diuretic. Gave nebulizer treatments. Gave him Robinul for the cough Review of Systems Review of Systems Narrative Review of Systems: CONSTITUTIONAL: Patient complaining of fatigue, weight loss HEENT: Hearing issues CARDIOVASCULAR: Patient denies any chest pain, shortness of breath, swelling in the lower extremities. PULMONARY: Patient denies any shortness of breath. +cough. GASTROINTESTINAL: Patient denies any abdominal pain, constipation, nausea, vomiting, diarrhea. Decreased appetite GENITOURINARY: Patient denies any urinary symptoms of burning or frequency or hematuria, denies any form in the urine. SKIN: Denies any rash. MUSCULOSKELETAL: Arthritis, gait imbalance NEUROLOGICAL: Denies any neurological problems of strokes, seizures or confusion. Denies any memory problems. PSYCHIATRIC: Denies any depression or anxiety. LYMPHATICS : No lymphadenopathy Exam Vital Signs Temp Pulse Resp BP Pulse Ox O2 Del Method 36.6 C 85 19 128/83 97 Room Air 06/08/24 08:00 06/08/24 08:09 06/08/24 08:00 06/08/24 08:09 06/08/24 08:00 06/08/24 08:00 Narrative Exam GENERAL APPEARANCE: Patient is very skinny-lost weight NECK: Neck supple, no JVD or bruit CARDIOVASCULAR: Heart regular, no murmurs LUNGS/CHEST: Mild wheezing noted ABDOMEN: Soft, nontender, nondistended. No masses. Normal bowel sounds. EXTREMITIES: No edema, clubbing or cyanosis. SKIN: Skin exam normal without any rashes MUSCULOSKELETAL: In bed NEUROLOGICAL : Patient seems to be slightly confused, memory lapses noted Objective Labs 06/09/24 06:09 06/09/24 06:09 Labs: Laboratory Results - last 24 hr 06/06/24 06/08/24 15:26 05:24 WBC 9.5 RBC 4.78 Hgb 12.6 L D Hct 38.2 L MCV 80 MCH 26.4 MCHC 33.0 RDW Std Deviation 45.9 H Plt Count 429 D Neut % (Auto) 82 H Lymph % (Auto) 10 [place] % (Auto) 7 Eos % (Auto) 0 Baso % (Auto) 0 Neut # (Auto) 7.8 H Lymph # (Auto) 1.0 [place] # (Auto) 0.7 Eos # (Auto) 0.0 Baso # (Auto) 0.0 Immature Gran # (Auto) 0.09 H Absolute Nucleated RBC 0.00 Immature Gran % 1 H Nucleated RBC % 0 Sodium 138 Potassium 4.9 D Chloride 99 Carbon Dioxide 23.9 Anion Gap 15 BUN 8 L Creatinine 0.9 Estim Creat Clear Calc Not Performed. eGFR > 60 BUN/Creatinine Ratio 9 L Glucose 115 H Calculated Osmolality 274 L Calcium 10.1 Corrected Calcium 10.1 Phosphorus 3.2 Magnesium 1.6 Total Bilirubin 0.8 AST 55 H ALT 115 H Alkaline Phosphatase 143 H D Total Protein 7.6 Albumin 4.5 D Globulin 3.1 Albumin/Globulin Ratio 1.5 Coccidioides IgM Ab Negative Assessment & Plan Assessment and plan (1) Pneumonia: Status: Acute Assessment and plan: Chest x-ray showed bilateral pneumonia. Continue with antibiotics. Continue with broad-spectrum antibiotics, oxygen Nebulizer treatments ordered (2) Diabetes: Status: Acute Assessment and plan: Accu-Cheks, sliding scale. Hold metformin (3) Hypertension: Status: Acute Assessment and plan: Blood pressure currently on the lower side. Hold BP meds (4) History of coronary artery bypass surgery: Status: Acute Assessment and plan: Patient denies any chest pain. Will monitor closely. (5) Elevated liver enzymes: Status: Acute Assessment and plan: Probably related to the recent viral illness. Will monitor closely. Patient asymptomatic with any abdominal pain. Additional Assessment & Plan Additional Plan: Estimated length of stay 3 days GI prophylaxis not needed DVT prophylaxis Praluent Disposition- requesting rehab placement. Will request social service assistant to facilitate. CODE STATUS DNR/DNI Quality - progress note Quality Measures Quality Measures: VTE prophylaxis Reason for Continued Stay Reason for Continued Stay: further monitoring
--- NOTE | 2024-06-08 10:35 | CHAP ---
Patient was visited by the Spiritual Care Volunteer who prayed silently in patten for them. (Volunteer was in the hospital from 9:30-10:35)
[2024-06-08 13:10] LABS: Cocci Serology, IgG Negative (Negative)
--- NOTE | 2024-06-08 14:22 | PC.SS ---
SS update: patient not ready for d/c. Stay for further monitoring.
[2024-06-08] MEDS: TEMAZEPAM 15 MG CAPSULE 30 MG PO (20:05)
[2024-06-09] VITALS (8 sets, daily range): BP systolic 108–122; BP diastolic 62–86; PULSE 69–99; RESP 15–23; TEMP 36.2–37.1; O2SAT 93–99; BMI 21.5
[2024-06-09] MEDS: PIPER/TAZO 2.25 GM 2.25 GM/50 ML BAG IV ×3 (05:30→18:00)
[2024-06-09 06:37] LABS: Basophils % (Auto) 0 % (0-2.5); Eosinophils # (Auto) 0.1 Thou/mm3 (0.0-0.5); Eosinophils % (Auto) 2 % (0-10); Hematocrit 29.1 % (41.0-53.0); Hemoglobin 9.7 g/dL (13.5-16.0); Immature Granulocytes % (Auto) 1 % (0-0); Immature Granulocytes Auto 0.05 Thou/mm3 (0.00-0.00); Lymphocytes % (Auto) 15 % (10-50); Mean Corpuscular HGB Conc 33.3 g/dl (31.0-37.0); Mean Corpuscular Hemoglobin 26.8 pg (25.0-35.0); Mean Corpuscular Volume 80 fL (80-100); Monocytes # (Auto) 0.8 Thou/mm3 (0.0-0.8); Monocytes % (Auto) 12 % (0-12); Neutrophils # (Auto) 4.7 Thou/mm3 (1.8-7.7); Neutrophils % (Auto) 71 % (37-80); Nucleated Red Blood Cell % 0 /100 WBC (0); Platelet Count 358 Thou/mm3 (140-440); RDW Standard Deviation 45.3 fL (35.1-43.9); Red Blood Count 3.62 Miln/mm3 (4.50-5.90); White Blood Count 6.6 Thou/mm3 (3.8-10.6)
[2024-06-09 07:03] LABS: Alanine Aminotransferase 60 U/L (10-49); Albumin, Serum 3.3 gm/dL (3.4-4.8); Albumin/Globulin Ratio 1.4 (1.2-2.2); Alkaline Phosphatase 94 U/L (46-116); Anion Gap 10 (7-16); Aspartate Amino Transferase 26 U/L (0-34); BUN/Creatinine Ratio 11 Ratio (12-20); Bilirubin,Total 0.5 mg/dL (0.3-1.2); Blood Urea Nitrogen 11 mg/dL (9-23); Calcium (Corrected) 9.6 mg/dL (8.5-10.1); Carbon Dioxide 27.4 mMol/L (20.0-31.0); Chloride 102 mMol/L (98-107); Globulin 2.3 gm/dL (2.3-3.5); Glucose 81 mg/dL (74-106); Magnesium 1.5 mg/dL (1.6-2.6); Osmolality,Calculated 275 (275-295); Phosphorous 3.5 mg/dL (2.4-5.1); Potassium 4.5 mMol/L (3.4-5.1); Sodium 139 mMol/L (136-145); Total Protein 5.6 gm/dL (5.7-8.2); eGFR > 60 See Note
[2024-06-09] MEDS: MEGESTROL ACET SUSP 400 MG/10 ML UDC PO (08:01)
[2024-06-09] MEDS: FUROSEMIDE INJ 10 MG/ML VIAL 2 ML 20 MG IVP (08:01)
[2024-06-09] MEDS: METOPROLOL SUCCINATE XL 25 MG TABCR PO (08:02)
[2024-06-09] MEDS: GLYCOPYRROLATE 1 MG TABLET PO (08:02)
[2024-06-09] MEDS: PRASUGREL 5 MG 10 MG PO (08:03)
--- NOTE | 2024-06-09 10:04 | ESPR_ITS ---
Documentation for date of: 06/09/24 Subjective Subjective Interval history: Mr. Nelson is a 83 year old male with coronary artery disease(under Dr. 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 Patient was given p.o. antibiotics and sent home. Son brought him to my office and he was extremely weak with functional decline. Sent him to the hospital as a direct admit for evaluation of dehydration, hypotension, pneumonia, failure to thrive. Patient has been losing significant amount of weight since his dental workup last year. He lost more than 30 pounds. PMHx as above. Allergies: none PSHx: multivessel CABG (1995) and multiple stents as above, right IOL replacement FHx: heart disease and multiple cancers. Social Hx: former smoker. Home medications included Tylenol, aspirin, Lipitor, cefdinir, Megace, metformin, metoprolol, nitro as needed, Effient, temazepam Labs showed white count 7.7, hemoglobin 9.8, platelets 333. INR 1.3. Renal panel normal, AST 114, ALT 153, albumin 3.6, urinalysis negative. Chest x-ray showed pneumonia/edema at the lung bases. Patient admitted to the hospital with pneumonia, elevated liver enzymes and failure to thrive with dehydration. Home medications have been reconciled. 06/09/2024 patient currently seen in telemetry. at bedside. She requested DNR status for him. Also requested rehab as patient has significant functional decline. Will start him on protein shakes. Physical therapy ordered. Liver enzymes improving. Gave him 1 dose of diuretic. Gave nebulizer treatments. Gave him Robinul for the cough. Pending transfer to rehab Review of Systems Review of Systems Narrative Review of Systems: CONSTITUTIONAL: Patient complaining of fatigue, weight loss HEENT: Hearing issues CARDIOVASCULAR: Patient denies any chest pain, shortness of breath, swelling in the lower extremities. PULMONARY: Patient denies any shortness of breath. +cough. GASTROINTESTINAL: Patient denies any abdominal pain, constipation, nausea, vomiting, diarrhea. Decreased appetite GENITOURINARY: Patient denies any urinary symptoms of burning or frequency or hematuria, denies any form in the urine. SKIN: Denies any rash. MUSCULOSKELETAL: Arthritis, gait imbalance NEUROLOGICAL: Denies any neurological problems of strokes, seizures or confusion. Denies any memory problems. PSYCHIATRIC: Denies any depression or anxiety. LYMPHATICS : No lymphadenopathy Exam Vital Signs Temp Pulse Resp BP Pulse Ox O2 Del Method O2 Flow Rate 36.2 C 76 17 116/62 99 Nasal Cannula 2 06/09/24 08:00 06/09/24 08:02 06/09/24 08:00 06/09/24 08:02 06/09/24 08:00 06/09/24 08:00 06/09/24 08:00 Narrative Exam GENERAL APPEARANCE: Patient is very skinny-lost weight NECK: Neck supple, no JVD or bruit CARDIOVASCULAR: Heart regular, no murmurs LUNGS/CHEST: Mild wheezing noted ABDOMEN: Soft, nontender, nondistended. No masses. Normal bowel sounds. EXTREMITIES: No edema, clubbing or cyanosis. SKIN: Skin exam normal without any rashes MUSCULOSKELETAL: In bed NEUROLOGICAL : Patient seems to be slightly confused, memory lapses noted Objective Labs 06/10/24 04:55 06/10/24 04:55 Labs: Laboratory Results - last 24 hr 06/06/24 06/09/24 15:26 06:09 WBC 6.6 RBC 3.62 L Hgb 9.7 L D Hct 29.1 L MCV 80 MCH 26.8 MCHC 33.3 RDW Std Deviation 45.3 H Plt Count 358 D Neut % (Auto) 71 Lymph % (Auto) 15 [place] % (Auto) 12 Eos % (Auto) 2 Baso % (Auto) 0 Neut # (Auto) 4.7 Lymph # (Auto) 1.0 [place] # (Auto) 0.8 Eos # (Auto) 0.1 Baso # (Auto) 0.0 Immature Gran # (Auto) 0.05 H Absolute Nucleated RBC 0.00 Immature Gran % 1 H Nucleated RBC % 0 Sodium 139 Potassium 4.5 Chloride 102 Carbon Dioxide 27.4 Anion Gap 10 BUN 11 Creatinine 1.0 Estim Creat Clear Calc Not Performed. eGFR > 60 BUN/Creatinine Ratio 11 L Glucose 81 Calculated Osmolality 275 Calcium 9.0 Corrected Calcium 9.6 Phosphorus 3.5 Magnesium 1.5 L Total Bilirubin 0.5 AST 26 ALT 60 H Alkaline Phosphatase 94 D Total Protein 5.6 L Albumin 3.3 L D Globulin 2.3 Albumin/Globulin Ratio 1.4 Coccidioides IgG Ab Negative Assessment & Plan Assessment and plan (1) Pneumonia: Status: Acute Assessment and plan: Chest x-ray showed bilateral pneumonia. Continue with antibiotics. Continue with broad-spectrum antibiotics, oxygen Nebulizer treatments ordered (2) Diabetes: Status: Acute Assessment and plan: Accu-Cheks, sliding scale. Hold metformin (3) Hypertension: Status: Acute Assessment and plan: Blood pressure currently on the lower side. Hold BP meds (4) History of coronary artery bypass surgery: Status: Acute Assessment and plan: Patient denies any chest pain. Will monitor closely. (5) Elevated liver enzymes: Status: Acute Assessment and plan: Probably related to the recent viral illness. Will monitor closely. Patient asymptomatic with any abdominal pain. Additional Assessment & Plan Additional Plan: Estimated length of stay 3 days GI prophylaxis not needed DVT prophylaxis Praluent Disposition- requesting rehab placement. Will request long term care social worker to facilitate. CODE STATUS DNR/DNI
[2024-06-09] MEDS: Magnesium Sulfate 2 GM Ivpb 2 GM/50 ML BAG IV (11:26)
[2024-06-09] MEDS: TEMAZEPAM 15 MG CAPSULE 30 MG PO (20:17)
[2024-06-10] VITALS (7 sets, daily range): BP systolic 99–134; BP diastolic 59–79; PULSE 73–87; RESP 14–20; TEMP 36.2–37; O2SAT 96–99; BMI 19.2
[2024-06-10] MEDS: PIPER/TAZO 2.25 GM 2.25 GM/50 ML BAG IV ×4 (00:10→17:26)
[2024-06-10 06:02] LABS: Basophils % (Auto) 0 % (0-2.5); Eosinophils # (Auto) 0.2 Thou/mm3 (0.0-0.5); Eosinophils % (Auto) 3 % (0-10); Hemoglobin 10.1 g/dL (13.5-16.0); Immature Granulocytes % (Auto) 1 % (0-0); Immature Granulocytes Auto 0.06 Thou/mm3 (0.00-0.00); Lymphocytes % (Auto) 17 % (10-50); Mean Corpuscular HGB Conc 32.6 g/dl (31.0-37.0); Mean Corpuscular Hemoglobin 26.4 pg (25.0-35.0); Mean Corpuscular Volume 81 fL (80-100); Monocytes # (Auto) 0.7 Thou/mm3 (0.0-0.8); Monocytes % (Auto) 11 % (0-12); Neutrophils # (Auto) 4.2 Thou/mm3 (1.8-7.7); Neutrophils % (Auto) 69 % (37-80); Nucleated Red Blood Cell % 0 /100 WBC (0); Platelet Count 386 Thou/mm3 (140-440); Red Blood Count 3.82 Miln/mm3 (4.50-5.90); White Blood Count 6.1 Thou/mm3 (3.8-10.6)
[2024-06-10 06:24] LABS: Alanine Aminotransferase 53 U/L (10-49); Albumin, Serum 3.6 gm/dL (3.4-4.8); Albumin/Globulin Ratio 1.6 (1.2-2.2); Alkaline Phosphatase 91 U/L (46-116); Anion Gap 9 (7-16); Aspartate Amino Transferase 32 U/L (0-34); BUN/Creatinine Ratio 14 Ratio (12-20); Bilirubin,Total 0.4 mg/dL (0.3-1.2); Blood Urea Nitrogen 14 mg/dL (9-23); Calcium 8.8 mg/dL (8.3-10.6); Calcium (Corrected) 9.1 mg/dL (8.5-10.1); Carbon Dioxide 26.9 mMol/L (20.0-31.0); Chloride 101 mMol/L (98-107); Estimated Creatinine Clearance 47.2 mL/min (>60); Globulin 2.3 gm/dL (2.3-3.5); Glucose 91 mg/dL (74-106); Magnesium 1.8 mg/dL (1.6-2.6); Osmolality,Calculated 274 (275-295); Potassium 4.4 mMol/L (3.4-5.1); Sodium 137 mMol/L (136-145); Total Protein 5.9 gm/dL (5.7-8.2); eGFR > 60 See Note
[2024-06-10] MEDS: FUROSEMIDE INJ 10 MG/ML VIAL 2 ML 20 MG IVP (08:23)
[2024-06-10] MEDS: MEGESTROL ACET SUSP 400 MG/10 ML UDC PO (08:23)
[2024-06-10] MEDS: METOPROLOL SUCCINATE XL 25 MG TABCR PO (08:23)
[2024-06-10] MEDS: GLYCOPYRROLATE 1 MG TABLET PO (08:23)
[2024-06-10] MEDS: PRASUGREL 5 MG 10 MG PO (08:24)
--- NOTE | 2024-06-10 14:34 | PC.SS ---
Licensed Practical Nurse Clinic Nurse (ADY) Carolyne informed by Etta that patient's family was requesting to speak to a SW. ADY met with patient and his , Rashmi (phone: [phone]). Per Rashmi, patient will need short-term rehabilitation; [facility]. ADY completed [facility] referral and [facility].
--- NOTE | 2024-06-10 19:42 | ESPR_ITS ---
Documentation for date of: 06/10/24 Subjective Subjective Interval history: Mr. Nelson is a 83 year old male with coronary artery disease(under Dr. 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 Patient was given p.o. antibiotics and sent home. Son brought him to my office and he was extremely weak with functional decline. Sent him to the hospital as a direct admit for evaluation of dehydration, hypotension, pneumonia, failure to thrive. Patient has been losing significant amount of weight since his dental workup last year. He lost more than 30 pounds. PMHx as above. Allergies: none PSHx: multivessel CABG (1995) and multiple stents as above, right IOL replacement FHx: heart disease and multiple cancers. Social Hx: former smoker. Home medications included Tylenol, aspirin, Lipitor, cefdinir, Megace, metformin, metoprolol, nitro as needed, Effient, temazepam Labs showed white count 7.7, hemoglobin 9.8, platelets 333. INR 1.3. Renal panel normal, AST 114, ALT 153, albumin 3.6, urinalysis negative. Chest x-ray showed pneumonia/edema at the lung bases. Patient admitted to the hospital with pneumonia, elevated liver enzymes and failure to thrive with dehydration. Home medications have been reconciled. 06/10/2024 patient currently seen in telemetry. Patient's requested DNR status for him. Also requested rehab as patient has significant functional decline. Will start him on protein shakes. Physical therapy ordered. Liver enzymes improving. Gave him 1 dose of diuretic. Gave nebulizer treatments. Gave him Robinul for the cough. Pending transfer to rehab Review of Systems Review of Systems Narrative Review of Systems: CONSTITUTIONAL: Patient complaining of fatigue, weight loss HEENT: Hearing issues CARDIOVASCULAR: Patient denies any chest pain, shortness of breath, swelling in the lower extremities. PULMONARY: Patient denies any shortness of breath. +cough. GASTROINTESTINAL: Patient denies any abdominal pain, constipation, nausea, vomiting, diarrhea. Decreased appetite GENITOURINARY: Patient denies any urinary symptoms of burning or frequency or hematuria, denies any form in the urine. SKIN: Denies any rash. MUSCULOSKELETAL: Arthritis, gait imbalance NEUROLOGICAL: Denies any neurological problems of strokes, seizures or confusion. Denies any memory problems. PSYCHIATRIC: Denies any depression or anxiety. LYMPHATICS : No lymphadenopathy Exam Vital Signs Temp Pulse Resp BP Pulse Ox O2 Del Method O2 Flow Rate 36.3 C 79 19 113/60 98 Nasal Cannula 1 06/10/24 16:00 06/10/24 16:00 06/10/24 16:00 06/10/24 16:00 06/10/24 16:00 06/10/24 16:00 06/10/24 16:00 Narrative Exam GENERAL APPEARANCE: Patient is very skinny-lost weight NECK: Neck supple, no JVD or bruit CARDIOVASCULAR: Heart regular, no murmurs LUNGS/CHEST: Mild wheezing noted ABDOMEN: Soft, nontender, nondistended. No masses. Normal bowel sounds. EXTREMITIES: No edema, clubbing or cyanosis. SKIN: Skin exam normal without any rashes MUSCULOSKELETAL: In bed NEUROLOGICAL : Patient seems to be slightly confused, memory lapses noted Objective Labs 06/10/24 04:55 06/10/24 04:55 Labs: Laboratory Results - last 24 hr 06/10/24 04:55 WBC 6.1 RBC 3.82 L Hgb 10.1 L Hct 31.0 L MCV 81 MCH 26.4 MCHC 32.6 RDW Std Deviation 46.0 H Plt Count 386 Neut % (Auto) 69 Lymph % (Auto) 17 [place] % (Auto) 11 Eos % (Auto) 3 Baso % (Auto) 0 Neut # (Auto) 4.2 Lymph # (Auto) 1.0 [place] # (Auto) 0.7 Eos # (Auto) 0.2 Baso # (Auto) 0.0 Immature Gran # (Auto) 0.06 H Absolute Nucleated RBC 0.00 Immature Gran % 1 H Nucleated RBC % 0 Sodium 137 Potassium 4.4 Chloride 101 Carbon Dioxide 26.9 Anion Gap 9 BUN 14 Creatinine 1.0 Estim Creat Clear Calc 47.2 L eGFR > 60 BUN/Creatinine Ratio 14 Glucose 91 Calculated Osmolality 274 L Calcium 8.8 Corrected Calcium 9.1 Phosphorus 3.0 Magnesium 1.8 Total Bilirubin 0.4 AST 32 ALT 53 H Alkaline Phosphatase 91 Total Protein 5.9 Albumin 3.6 Globulin 2.3 Albumin/Globulin Ratio 1.6 Assessment & Plan Assessment and plan (1) Pneumonia: Status: Acute Assessment and plan: Chest x-ray showed bilateral pneumonia. Continue with antibiotics. Continue with broad-spectrum antibiotics, oxygen Nebulizer treatments ordered (2) Diabetes: Status: Acute Assessment and plan: Accu-Cheks, sliding scale. Hold metformin (3) Hypertension: Status: Acute Assessment and plan: Blood pressure currently on the lower side. Hold BP meds (4) History of coronary artery bypass surgery: Status: Acute Assessment and plan: Patient denies any chest pain. Will monitor closely. (5) Elevated liver enzymes: Status: Acute Assessment and plan: Probably related to the recent viral illness. Will monitor closely. Patient asymptomatic with any abdominal pain. Additional Assessment & Plan Additional Plan: Estimated length of stay 3 days GI prophylaxis not needed DVT prophylaxis Praluent Disposition- requesting rehab placement. Will request high school social studies teacher to facilitate. CODE STATUS DNR/DNI
[2024-06-10] MEDS: TEMAZEPAM 15 MG CAPSULE 30 MG PO (20:04)
[2024-06-11] VITALS (10 sets, daily range): BP systolic 110–127; BP diastolic 55–92; PULSE 77–87; RESP 16–26; TEMP 36.1–36.5; O2SAT 95–100; BMI 19.2
[2024-06-11] MEDS: PIPER/TAZO 2.25 GM 2.25 GM/50 ML BAG IV ×4 (00:06→17:13)
[2024-06-11] MEDS: FUROSEMIDE INJ 10 MG/ML VIAL 2 ML 20 MG IVP (08:38)
[2024-06-11] MEDS: MEGESTROL ACET SUSP 400 MG/10 ML UDC PO (08:38)
[2024-06-11] MEDS: METOPROLOL SUCCINATE XL 25 MG TABCR PO (08:39)
[2024-06-11] MEDS: PRASUGREL 5 MG 10 MG PO (08:39)
[2024-06-11] MEDS: GLYCOPYRROLATE 1 MG TABLET PO (08:39)
--- NOTE | 2024-06-11 13:20 | PD.NEPHDC ---
Planned Discharge Date 06/11/24 DS: Providers Provider Date of admission: 06/06/24 13:59 Primary care physician: Kevin Huddleston MD Admitting Provider: Kevin Huddleston MD Attending Provider on Admission: Kevin Huddleston MD Consults: 06/08/24 09:24 Referral Discharge Planning Routine Comment: rehab placement- ready for dc Referral Physical Therapy Routine Comment: Physician Instructions: Attending Provider on DC: Kevin Huddleston MD Discharging Provider: Kevin Huddleston MD Discharge Diagnosis Discharge Diagnosis (1) Pneumonia: Status: Acute Assessment & Plan: (1) Pneumonia: Status: Acute Assessment and plan: Chest x-ray showed bilateral pneumonia. Continue with antibiotics. Continue with broad-spectrum antibiotics, oxygen--op Nebulizer treatments ordered (2) Diabetes: Status: Acute Assessment and plan: Accu-Cheks, sliding scale. (3) Hypertension: Status: Acute Assessment and plan: Resume BP medications (4) History of coronary artery bypass surgery: Status: Acute Assessment and plan: Patient denies any chest pain. Will monitor closely. (5) Elevated liver enzymes: Status: Acute Assessment and plan: Probably related to the recent viral illness. Markedly improved. (2) Diabetes: Status: Acute (3) Hypertension: Status: Acute (4) History of coronary artery bypass surgery: Status: Acute Problem List Completed Was Problem List Reviewed/Reconciled?: Yes Hospital Course Hospital Course Hospital course: Mr. Nelson is a 83 year old male with coronary artery disease(under Dr. 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 Patient was given p.o. antibiotics and sent home. Son brought him to my office and he was extremely weak with functional decline. Sent him to the hospital as a direct admit for evaluation of dehydration, hypotension, pneumonia, failure to thrive. Patient has been losing significant amount of weight since his dental workup last year. He lost more than 30 pounds. PMHx as above. Allergies: none PSHx: multivessel CABG (1995) and multiple stents as above, right IOL replacement FHx: heart disease and multiple cancers. Social Hx: former smoker. Home medications included Tylenol, aspirin, Lipitor, cefdinir, Megace, metformin, metoprolol, nitro as needed, Effient, temazepam Labs showed white count 7.7, hemoglobin 9.8, platelets 333. INR 1.3. Renal panel normal, AST 114, ALT 153, albumin 3.6, urinalysis negative. Chest x-ray showed pneumonia/edema at the lung bases. Patient admitted to the hospital with pneumonia, elevated liver enzymes and failure to thrive with dehydration. Home medications have been reconciled. 06/11/2024 patient currently seen in telemetry. Patient's requested DNR status for him. Also requested rehab as patient has significant functional decline. Will start him on protein shakes. Physical therapy ordered. Liver enzymes improving. Gave him 1 dose of diuretic. Gave nebulizer treatments. Gave him Robinul for the cough. Patient will discharge to [facility]. Status at Discharge Cognitive/behavioral status at discharge: Patient has mild dementia Functional status at discharge: wheelchair bound Overall status at discharge: patient is not back to baseline Time Spent with Patient Time attestation: Total time spent providing and/or coordinating discharge services: 35 minutes Exam Vital Signs Temp Pulse Resp BP Pulse Ox O2 Del Method O2 Flow Rate 36.5 C 79 18 110/55 L 98 Nasal Cannula 1 06/11/24 12:00 06/11/24 12:00 06/11/24 12:00 06/11/24 12:00 06/11/24 12:00 06/11/24 12:06/11/24 04:00 Narrative Exam GENERAL APPEARANCE: Patient is very skinny-lost weight NECK: Neck supple, no JVD or bruit CARDIOVASCULAR: Heart regular, no murmurs LUNGS/CHEST: Mild wheezing noted ABDOMEN: Soft, nontender, nondistended. No masses. Normal bowel sounds. EXTREMITIES: No edema, clubbing or cyanosis. SKIN: Skin exam normal without any rashes MUSCULOSKELETAL: In bed NEUROLOGICAL : Patient seems to be slightly confused, memory lapses noted Discharge Plan Plan Patient Disposition: Xfer Skilled Nsg Fac (SNF) Disposition Comment: [facility] Prescriptions/Referrals Prescriptions/Med Rec: New amoxicillin-pot clavulanate [Augmentin] 500-125 mg tablet 1 tab PO BID Qty: 14 0RF Continued aspirin 325 MG tablet 325 mg PO QDAY Qty: 0 prasugrel [Effient] 10 MG tablet 10 mg PO QDAY Qty: 0 metformin 850 mg tablet 850 mg PO TID Patient Comments: TAKE 1 TABLET BY MOUTH THREE TIMES DAILY temazepam 30 mg capsule 30 mg PO QDAY PRN (Reason: Insomnia) Patient Comments: TAKE 1 CAPSULE BY MOUTH ONCE DAILY NEEDED nitroglycerin 0.4 mg Tablet, Sublingual 0.4 mg BUCCAL PRN PRN (Reason: Chest Pain) acetaminophen 500 mg capsule 500 mg PO QID Qty: 40 0RF megestrol 400 mg/10 mL (40 mg/mL) Suspension 400 mg PO QDAY atorvastatin 80 mg tablet 80 mg PO HS metoprolol succinate 25 mg Tablet Extended Release 24 Hr 25 mg PO QDAY 30 Days Qty: 30 2RF Discontinued amoxicillin 500 mg capsule 500 mg PO TID Qty: 30 0RF cefdinir 300 mg capsule 300 mg PO BID 10 Days Qty: 20 0RF Referrals: Kevin Huddleston MD [Primary Care Provider] - Patient/Caregiver Discharge Instructions Discharge Activity: activity as tolerated Print Language: Colombian Activity Restrictions/Additional Instructions: PT/OT Stand Alone Forms: Bonnie Award Info., Patient Portal Info Letter Discharge Order Discharge Orders: Discharge (Routine); Ordered 06/11/24 Ordered By: Kevin Huddleston
--- NOTE | 2024-06-11 15:45 | PC.SS ---
SS follow up note; SS set up transportation for patient to discharge to [facility] at 2030. SS informed patients nurse, Patrick as well as patient's and Melly from [facility].
--- NOTE | 2024-06-11 20:11 | PC.NURSE ---
2002 pt discharged to [facility], transported by ambulance on stretcher. pt AAOx3, denies pain, belongings taken by spouse.
== END 2024-06-11 20:02 | disposition skilled nursing facility (03) | DRG 194 ==
PROVIDERS: Admitting Provider Internal Medicine; PCP Internal Medicine; Visit Provider Internal Medicine
DX: J18.9 Pneumonia, unspecified organism (principal); Z68.1 Body mass index [BMI] 19.9 or less, adult; E11.9 Type 2 diabetes mellitus without complications; I10 Essential (primary) hypertension; I25.10 Atherosclerotic heart disease of native coronary artery without angina pectoris; R62.7 Adult failure to thrive; E78.5 Hyperlipidemia, unspecified; I95.9 Hypotension, unspecified; E86.0 Dehydration; R74.8 Abnormal levels of other serum enzymes; Z95.1 Presence of aortocoronary bypass graft; Z87.891 Personal history of nicotine dependence; Z66 Do not resuscitate; Z79.02 Long term (current) use of antithrombotics/antiplatelets; Z79.84 Long term (current) use of oral hypoglycemic drugs; Z79.899 Other long term (current) drug therapy
CPT/HCPCS: 36415; 71045; 71046; 80053; 83735; 84100; 85025; 85610; 86331; 86635; 87400; 87811; 96361; 96365; 97163; 99284; J0696; J1940; J2543; J3475; J3490; J7030; J7999; A9270

== ENCOUNTER 2024-10-05 06:36 | Day surgery (SDC) | payer MEDICARE, SELFPAY ==
--- NOTE | 2024-10-04 10:06 | EKG_ITS ---
[facility] Test Date: 2024-10-04 Pat Name: LAURA EDWARDS Department: Room: - Gender: Male Air Traffic Control Specialist: MCKENNA : 1940 Requested By: Carlton Castellano Order Number: [id number] Reading MD: Carlton Castellano Measurements Intervals [place] Rate: 59 P: MO: QRS: 259 QRSD: 129 T: 26 QT: 441 QTc: 439 Interpretive Statements ATRIAL FLUTTER/TACHYCARDIA WITH SLOW VENTRICULAR RESPONSE WITH ABERRANT CONDUCTION OR VENTRICULAR PREMATURE COMPLEXES MARKED RIGHT AXIS DEVIATION [QRS AXIS > 100] RIGHT BUNDLE BRANCH BLOCK AND POSSIBLE RIGHT VENTRICULAR HYPERTROPHY [RBBB, 1.5 mV R IN V1, RAD] INFERIOR MYOCARDIAL INFARCTION , PROBABLY OLD [40+ ms Q WAVE AND/OR ST/T ABNORMALITY IN II/aVF] Compared to ECG 12/24/2023 10:11:48 Myocardial infarct finding now present /store/S0/[id number]
[2024-10-04 11:08] LABS: Anion Gap 11 (7-16); BUN/Creatinine Ratio 10 Ratio (12-20); Blood Urea Nitrogen 12 mg/dL (9-23); Calcium 10.3 mg/dL (8.3-10.6); Carbon Dioxide 25.1 mMol/L (20.0-31.0); Chloride 95 mMol/L (98-107); Creatinine (Component) 1.2 mg/dL (0.6-1.3); Glucose 152 mg/dL (74-106); Osmolality,Calculated 265 (275-295); Potassium 5.5 mMol/L (3.4-5.1); Sodium 131 mMol/L (136-145); eGFR > 60 See Note
[2024-10-04 11:23] LABS: Hematocrit 35.8 % (41.0-53.0); Hemoglobin 11.6 g/dL (13.5-16.0); Mean Corpuscular HGB Conc 32.4 g/dl (31.0-37.0); Mean Corpuscular Hemoglobin 26.7 pg (25.0-35.0); Mean Corpuscular Volume 83 fL (80-100); Nucleated Red Blood Cell % 0 /100 WBC (0); Platelet Count 306 Thou/mm3 (140-440); RDW Standard Deviation 44.9 fL (35.1-43.9); Red Blood Count 4.34 Miln/mm3 (4.50-5.90); White Blood Count 6.3 Thou/mm3 (3.8-10.6)
[2024-10-04 11:39] LABS: INR 1.2 (0.9-1.3); Partial Thromboplastin Time 27.7 Seconds (22.0-36.0); Prothrombin Time 12.8 Seconds (9.0-12.2)
[2024-10-05] VITALS (9 sets, daily range): BP systolic 133–160; BP diastolic 64–83; PULSE 68–72; RESP 11–20; TEMP 36.4; O2SAT 95–100
--- NOTE | 2024-10-05 07:58 | PD.CARDCATH ---
Cardiac Cath Procedure Procedure Narrative Procedure date 10/05/2024 Title of the procedure Single lead AICD placement Indication for the procedure This is an 84-year-old gentleman with past medical history of coronary artery disease Prior history of ischemic cardiomyopathy patient was optimized medically AICD was recommended for primary prevention Procedure This is done in the cardiac lab under current electrocardiographic monitoring intermittent blood pressure monitoring Stringent aseptic condition 1% lidocaine anesthesia Left subclavian venous access obtained modified Seldinger technique and venous sheath was placed Through the venous sheath ventricular lead [id number] was placed in the high septal region This is a TX2 lead with atrial sensing Capacity Heart rate was 8.2 mV P wave was 3.2 mV impedance was 556 9 Shock impedance was 50.2 The lead has 2 ends both ends were connected to the device the device is activated DR SPENCER serial #[id number] Subsequently the AICD was placed in the pocket This subcutaneous tissue was sutured with 2-0 Vicryl Skin was secured with Dermabond Patient tolerated the whole procedure well there was no complication Conclusion successful placement of AICD for primary prevention
--- NOTE | 2024-10-05 09:13 | XR_ITS ---
Examination: AP chest single view Technique one AP upright portable chest single view Date and time: October 05, 2024 0927 hours Comparison June 06, 2024 INDICATIONS: Status post pacemaker insertion FINDINGS: Ventricular cardiac lead projects over the right ventricle CABG Moderate vascular congestion No pneumothorax Blunting of the right lateral costophrenic angle IMPRESSION: Cardiac lead as above No pneumothorax
[2024-10-05] MEDS: VANCOMYCIN/NS 1 GM IVPB 200 ML IV (09:32)
== END 2024-10-05 11:30 | disposition home or self-care (01) ==
PROVIDERS: PCP Internal Medicine; Referring Provider Internal Medicine; Visit Provider Internal Medicine
PROC: 0JH608Z Insertion of Defibrillator Generator into Chest Subcutaneous Tissue and Fascia, Open Approach (ICD-10-PCS; CPT 33249; principal; 2024-10-05 07:30)
DX: I25.5 Ischemic cardiomyopathy (principal); I25.810 Atherosclerosis of coronary artery bypass graft(s) without angina pectoris; E11.22 Type 2 diabetes mellitus with diabetic chronic kidney disease; I12.9 Hypertensive chronic kidney disease with stage 1 through stage 4 chronic kidney disease, or unspecified chronic kidney disease; N18.9 Chronic kidney disease, unspecified; Z98.61 Coronary angioplasty status; Z01.810 Encounter for preprocedural cardiovascular examination
CPT/HCPCS: 33249; 36415; 80048; 85025; 85610; 85730; 93005; 99152; 99153; A4565; A4649; C1722; C1894; J0171; J0461; J0689; J2250; J2310; J2371; J3010; J3370; J3490

== ENCOUNTER 2024-10-30 10:34 | Emergency (ER) | payer MEDICARE, SELFPAY ==
[2024-10-30 10:36] VITALS: BP 119/71; PULSE 66; RESP 16; TEMP 36.1; O2SAT 97
[2024-10-30 10:46] VITALS: PULSE 74; RESP 24; O2SAT 96
--- NOTE | 2024-10-30 11:15 | EKG_ITS ---
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: : 1940 Requested By: Elan Pineda (ELI) Order Number: [id number] Reading MD: Elan Pineda (ICE SCRAPER) Measurements Intervals [place] Rate: 66 P: 252 MS: 274 QRS: 240 QRSD: 120 T: 73 QT: 445 QTc: 467 Interpretive Statements ECTOPIC ATRIAL RHYTHM WITH FIRST DEGREE AV BLOCK RIGHT AXIS DEVIATION [QRS AXIS > 100] RIGHT BUNDLE BRANCH BLOCK AND POSSIBLE RIGHT VENTRICULAR HYPERTROPHY [RBBB, 1.5 mV R IN V1, RAD] INFERIOR MYOCARDIAL INFARCTION , OF INDETERMINATE AGE [40+ ms Q WAVE AND/OR ST/T ABNORMALITY IN II/aVF] Compared to ECG 10/04/2024 10:41:20 Ectopic atrial rhythm now present First degree AV block now present Atrial flutter no longer present Ventricular premature complex(es) no longer present Aberrant conduction of supraventricular beat(s) no longer present Myocardial infarct finding still present /store/S0/[id number]/[id number].pdf
--- NOTE | 2024-10-30 11:15 | XR_ITS ---
Examination: AP lateral chest 2 views TECHNIQUE: Sitting portable AP lateral chest 2 views Date and time: October 30, 2024 1130 hours Comparison October 05, 2024 INDICATIONS: Chest pain today, status post cardiac pacemaker insertion 3 weeks ago. FINDINGS: Mild chronic heart failure pattern Mild enlargement cardiac contour. Prominent vascular congestion with small to moderate bilateral pleural effusions. CABG. Unipolar ventricular lead satisfactory position IMPRESSION: Mild heart failure pattern
--- NOTE | 2024-10-30 11:15 | PD.EDRME ---
Rapid Medical Screening Exam E Arrival date/time: 10/30/24 10:34 84-year-old male presents to the emergency department today for complaint of generalized weakness ongoing for the last few months which has been progressive patient also reports weight loss Chief Complaint: Weakness Vital signs: Vital Signs Temperature 96.9 F 10/30/24 10:36 Pulse Rate 66 10/30/24 10:36 Respiratory Rate 16 10/30/24 10:36 Blood Pressure 119/71 10/30/24 10:36 Pulse Oximetry (%) 97 10/30/24 10:36 Oxygen Delivery Method Room Air 10/30/24 10:36
[2024-10-30 11:49] LABS: Basophils # (Auto) 0.0 Thou/mm3 (0.0-0.2); Basophils % (Auto) 1 % (0-2.5); Eosinophils # (Auto) 0.0 Thou/mm3 (0.0-0.5); Eosinophils % (Auto) 1 % (0-10); Hematocrit 33.7 % (41.0-53.0); Hemoglobin 11.4 g/dL (13.5-16.0); Immature Granulocytes Auto 0.02 Thou/mm3 (0.00-0.00); Lymphocytes # (Auto) 0.8 Thou/mm3 (1.0-4.8); Lymphocytes % (Auto) 15 % (10-50); Mean Corpuscular HGB Conc 33.8 g/dl (31.0-37.0); Mean Corpuscular Hemoglobin 26.9 pg (25.0-35.0); Mean Corpuscular Volume 80 fL (80-100); Monocytes # (Auto) 0.6 Thou/mm3 (0.0-0.8); Monocytes % (Auto) 11 % (0-12); Neutrophils # (Auto) 3.9 Thou/mm3 (1.8-7.7); Neutrophils % (Auto) 72 % (37-80); Nucleated Red Blood Cell # 0.00 Thou/mm3 (0.00-0.00); Nucleated Red Blood Cell % 0 /100 WBC (0); Platelet Count 288 Thou/mm3 (140-440); RDW Standard Deviation 44.3 fL (35.1-43.9); Red Blood Count 4.24 Miln/mm3 (4.50-5.90); White Blood Count 5.4 Thou/mm3 (3.8-10.6)
[2024-10-30 12:03] LABS: INR 1.3 (0.9-1.3); Partial Thromboplastin Time 26.6 Seconds (22.0-36.0); Prothrombin Time 13.8 Seconds (9.0-12.2)
[2024-10-30 12:07] LABS: B-Type Natriuretic Peptide 2403 pg/mL (0-100)
[2024-10-30 12:08] LABS: Alanine Aminotransferase 22 U/L (10-49); Albumin, Serum 4.5 gm/dL (3.4-4.8); Albumin/Globulin Ratio 1.8 (1.2-2.2); Alkaline Phosphatase 181 U/L (46-116); Anion Gap 12 (7-16); Aspartate Amino Transferase 26 U/L (0-34); BUN/Creatinine Ratio 13 Ratio (12-20); Bilirubin,Total 0.6 mg/dL (0.3-1.2); Blood Urea Nitrogen 17 mg/dL (9-23); Calcium 9.4 mg/dL (8.3-10.6); Calcium (Corrected) 9.4 mg/dL (8.5-10.1); Carbon Dioxide 25.3 mMol/L (20.0-31.0); Chloride 91 mMol/L (98-107); Creatinine (Component) 1.3 mg/dL (0.6-1.3); Globulin 2.5 gm/dL (2.3-3.5); Glucose 134 mg/dL (74-106); Lipase 39 U/L (12-53); Magnesium 1.4 mg/dL (1.6-2.6); Osmolality,Calculated 260 (275-295); Potassium 5.0 mMol/L (3.4-5.1); Sodium 128 mMol/L (136-145); Total Protein 7.0 gm/dL (5.7-8.2); Troponin I 0.022 ng/mL (0.0-0.045); eGFR 55 See Note
[2024-10-30 12:22] LABS: Collection Type, Urine Clean Catch
[2024-10-30 12:27] LABS: Bilirubin,Urine Negative (Negative); Blood,Urine Negative (Negative); Clarity,Urine Clear (Clear/Hazy); Color,Urine Lt-Yellow (Lt Yel-Yel); Glucose, Urine Negative (Negative); Hyaline Casts,Urine < 1 /hpf (0-1); Ketones,Urine Negative (Negative); Leukocyte Esterase,Urine Negative (Negative); Nitrite,Urine Negative (Negative); PH,Urine 6.0 (5.0-7.0); Protein,Urine Trace (Neg - Trace); RBC,Urine 2 /hpf (0-3); Specific Gravity,Urine 1.019 (1.001-1.035); Squamous Epithelial Cell,Urine < 1 /hpf (0-5); Urobilinogen,Urine Negative mg/dL (0.0-1.0); WBC,Urine 1 /hpf (0-5)
--- NOTE | 2024-10-30 13:29 | PD.EDWEAK ---
ED Weakness RME/HPI General Chief complaint: Weakness Stated complaint: WEAKNESS FOR 1 YEAR Arrival date/time: 10/30/24 10:34 Limitations: no limitations RME / HPI RME / HPI Narrative: 84-year-old male who is followed by Dr. Huddleston. He had a place installed in his left chest approximately 3 weeks ago. He is here today with ongoing weakness over the past year. He states is gotten worse over the last 3 months. He has no headache, chest pain, or shortness of breath. No cough or congestion. He denies any abdominal pain, nausea, vomiting. He has no changes in urination. He denies any lower leg edema. He has no fevers or chills. He has no other acute complaints. Related Data Home Medications ?Medication ?Instructions ?Recorded ?Confirmed aspirin 325 mg tablet 325 mg PO QDAY ##0 08/04/13 10/05/24 prasugrel HCl 10 mg tablet 10 mg PO QDAY #0 tabs 03/09/17 10/05/24 (Effient) metformin 850 mg tablet 850 mg PO TID 06/02/22 10/05/24 nitroglycerin 0.4 mg sublingual 0.4 mg buccal PRN PRN Chest Pain 06/02/22 10/05/24 tablet temazepam 30 mg capsule 30 mg PO QDAY PRN Insomnia 06/02/22 10/05/24 atorvastatin 40 mg tablet 40 mg PO QPM 10/05/24 10/05/24 cyanocobalamin (vitamin B-12) 2,500 mcg PO QDAY 10/05/24 10/05/24 2,500 mcg tablet magnesium oxide 500 mg capsule 500 mg PO TID 10/05/24 10/05/24 oxybutynin chloride 5 mg tablet 5 mg PO BID PRN bladder spasms 10/05/24 10/05/24 Previous Rx's ?Medication ?Instructions ?Recorded metoprolol succinate 25 mg 25 mg PO QDAY 30 days #30 tabs 12/26/23 tablet,extended release 24 hr Allergies Allergy/AdvReac Type Severity Reaction Status Date / Time No Known Allergies Allergy Verified 10/30/24 10:46 Review of Systems Review of Systems Systems Reviewed: All systems reviewed, normal except as documented ED Exam General Limitations: Present no limitations General appearance: Present alert and in no apparent distress Head Head exam: Present atraumatic Eye Eye exam: Present normal appearance, PERRL and EOMI ENT ENT exam: Present normal exam, normal oropharynx and mucous membranes moist Neck Neck exam: Present normal inspection, full ROM and trachea midline Chest Chest inspection: Present normal inspection and symmetric chest wall rise Respiratory Respiratory exam: Present normal lung sounds bilaterally Cardiovascular Cardiovascular exam: Present regular rate, normal rhythm and normal heart sounds Abdominal Exam Abdominal exam: Present soft and normal bowel sounds Extremities Exam Extremities exam: Present normal inspection and other (No lower leg edema) Back Exam Back exam: Present normal inspection and full ROM Neurological Exam Neurological exam: Present alert and oriented X3 Psychiatric Psychiatric exam: Present normal affect and normal mood Skin Skin exam: Present warm, dry, intact and normal color Course Quality Measures none Orders Category Date Time Status EKG (ED ONLY) *Do not use* NOW Care 10/30/24 11:15 Completed EKG (ED Only) Stat Exams 10/30/24 11:15 Draft XR chest 2V Stat Exams 10/30/24 11:15 Completed B-Type Natriuretic Peptide Stat Lab 10/30/24 11:39 Completed CBC Stat Lab 10/30/24 11:39 Completed Comprehensive Metabolic Panel Stat Lab 10/30/24 11:39 Completed Lipase Stat Lab 10/30/24 11:39 Completed Magnesium Stat Lab 10/30/24 11:39 Completed Partial Thromboplastin Time Stat Lab 10/30/24 11:39 Completed Prothrombin Time with INR Stat Lab 10/30/24 11:39 Completed Troponin I Stat Lab 10/30/24 11:39 Completed Type and Screen Stat Lab 10/30/24 11:39 Completed Urinalysis Stat Lab 10/30/24 12:00 Completed Vital Signs Vital signs: Vital Signs Temperature 96.9 F 10/30/24 10:36 Pulse Rate 66 10/30/24 10:36 Respiratory Rate 16 10/30/24 10:36 Blood Pressure 119/71 10/30/24 10:36 Pulse Oximetry (%) 97 10/30/24 10:36 Oxygen Delivery Method Room Air 10/30/24 10:36 Weakness MDM Narrative MDM Narrative:: 84-year-old male who is followed by Dr. Huddleston. He had a place installed in his left chest approximately 3 weeks ago. He is here today with ongoing weakness over the past year. He states is gotten worse over the last 3 months. He has no headache, chest pain, or shortness of breath. No cough or congestion. He denies any abdominal pain, nausea, vomiting. He has no changes in urination. He denies any lower leg edema. He has no fevers or chills. He has no other acute complaints. On exam, patient is answering questions appropriately. He does not appear to be clinically fluid overloaded. Will workup reveals no leukocytosis or significant anemia he has significant hyponatremia at 128. He has mild hypomagnesia at 1.4. BNP is 2403 with no prior for comparison. Urinalysis is unremarkable. Chest x-ray was obtained which reveals cardiomegaly with mild vascular congestion. Patient has no cough, shortness of breath, orthopnea, or lower leg edema. Case discussed with attending ER physician. I reviewed the test results with the patient. Patient can be discharged from the emergency room. He was advised to increase sodium intake. Follow-up with his primary doctor closely. Return at anytime for any worsening or emergent changes. Patient data External records reviewed:: [facility] previous records Clinical information provided by:: patient and family Social determinants that could affect healthcare access:: none Patient has the following chronic illnesses:: Hyperlipidemia How is presenting disease/condition affected by chronic disease/condition?: uneffected by Evaluation data The following diagnostics were reviewed and interpreted by me:: lab results (No leukocytosis or anemia. There is mild hyponatremia at 128, BNP is elevated at 05/22/2002.) and EKG tracing(s) (66 bpm, no discernible P waves although his QRS complexes are lying. No significant changes compared to prior EKG.) Lab and/or radiology exams considered but not ordered:: n/a Interpretation Summary: Hyponatremia, heart failure pattern Medications / Prescriptions Medications or Prescriptions considered but not ordered:: n/a Medication administrations:: n/a Consultations Consultation(s) initiated? (list below): No Diagnosis Weakness Differential Diagnosis: anemia and dehydration Most likely diagnosis given after review of the tests above:: Hyponatremia Admission Indicated Admission indicated?: not indicated Admission Request Was there a request for admission?: No Disposition Plan Disposition Plan: Discharge Discharge Attestation Discharge Attestation: The patient and all family members were given an opportunity to ask questions and understood the discharge instructions. Discharge instructions specifically effects, indications for sooner follow up or return to the emergency department, and the expected course of current diagnosis. Patient condition: Stable Discharge Plan Plan Patient Disposition: HOME (Self Care) Patient condition on transfer: Stable Prescriptions/Referrals Prescriptions/Med Rec: No Action aspirin 325 MG tablet 325 mg PO QDAY Qty: 0 prasugrel HCl [Effient] 10 MG tablet 10 mg PO QDAY Qty: 0 metformin 850 mg tablet 850 mg PO TID Patient Comments: TAKE 1 TABLET BY MOUTH THREE TIMES DAILY temazepam 30 mg capsule 30 mg PO QDAY PRN (Reason: Insomnia) Patient Comments: TAKE 1 CAPSULE BY MOUTH ONCE DAILY NEEDED nitroglycerin 0.4 mg Tablet, Sublingual 0.4 mg BUCCAL PRN PRN (Reason: Chest Pain) metoprolol succinate 25 mg Tablet Extended Release 24 Hr 25 mg PO QDAY 30 Days Qty: 30 2RF atorvastatin 40 mg tablet 40 mg PO QPM magnesium oxide 500 mg capsule 500 mg PO TID oxybutynin chloride 5 mg tablet 5 mg PO BID PRN (Reason: bladder spasms) cyanocobalamin (vitamin B-12) 2,500 mcg tablet 2,500 mcg PO QDAY Referrals: Kevin Huddleston MD [Primary Care Provider] - In 1 week Problem List Clinical Impression: Acute hyponatremia Patient/Caregiver Discharge Instructions Education Materials: ED Hyponatremia Additional Instructions: - Increase your sodium intake. - Contact your primary doctor to schedule close follow-up appointment. - Return as needed for any worsening or emergent changes. Print Language: Tajik Stand Alone Forms: Bonnie Award Info., Patient Portal Info Letter
[2024-10-30 13:33] VITALS: BP 124/76; PULSE 71; RESP 18; TEMP 36.4; O2SAT 95
[2024-10-30 16:28] VITALS: BP 145/84; PULSE 66; RESP 18; TEMP 36.4; O2SAT 96
[2024-10-30 18:10] VITALS: BP 140/94; PULSE 66; RESP 18; TEMP 36.4; O2SAT 99
== END 2024-10-30 18:30 | disposition home or self-care (01) ==
PROVIDERS: Nurse Practitioner Primary Care; Emergency Provider Emergency Medicine; PCP Internal Medicine
DX: E87.1 Hypo-osmolality and hyponatremia (principal); I50.9 Heart failure, unspecified; I44.0 Atrioventricular block, first degree; I25.2 Old myocardial infarction; I45.10 Unspecified right bundle-branch block
CPT/HCPCS: 36415; 71046; 80053; 81001; 83690; 83735; 83880; 84484; 85025; 85610; 85730; 86850; 86900; 86901; 93005; 99284

== ENCOUNTER 2024-12-03 17:56 | Inpatient (IN) | payer MEDICARE, SELFPAY ==
[2024-12-03 17:58] VITALS: BP 121/71; PULSE 80; RESP 18; TEMP 36.4; O2SAT 97
[2024-12-03 17:59] VITALS: BMI 24.7
[2024-12-03 18:12] VITALS: PULSE 65; O2SAT 96
--- NOTE | 2024-12-03 18:36 | EKG_ITS ---
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1940 Requested By: Nicolas Chris Order Number: [id number] Reading MD: Nicolas Chris Measurements Intervals [place] Rate: 69 P: [place]: QRS: 265 QRSD: 142 T: 66 QT: 424 QTc: 455 Interpretive Statements ATRIAL FLUTTER/TACHYCARDIA RIGHT AXIS DEVIATION [QRS AXIS > 100] RIGHT BUNDLE BRANCH BLOCK AND POSSIBLE RIGHT VENTRICULAR HYPERTROPHY [RBBB, 1.5 mV R IN V1, RAD] INFERIOR MYOCARDIAL INFARCTION , PROBABLY OLD [40+ ms Q WAVE AND/OR ST/T ABNORMALITY IN II/aVF] Compared to ECG 10/30/2024 11:37:58 Ectopic atrial rhythm no longer present First degree AV block no longer present Myocardial infarct finding still present /store/S0/[id number].pdf
--- NOTE | 2024-12-03 18:36 | XR_ITS ---
Examination: AP chest single view TECHNIQUE: AP portable semiupright chest single view Date and time: December 03, 2024 1914 hours INDICATIONS: Chest pain today COMPARISON: October 30, 2024 FINDINGS: [id number] CHF Mild to moderate enlargement cardiac contour pulmonary vascular congestion and perihilar basilar edema CABG Cardiac lead in stable position Moderate osteopenia IMPRESSION: [id number] CHF
--- NOTE | 2024-12-03 18:36 | XR_ITS ---
Examination: CT abdomen with intravenous contrast CT pelvis with intravenous contrast 2-D coronal reconstructions 2-D sagittal reconstructions Date and time of exam:December 03, 2024 2116 hours Comparison June 01, 2022 INDICATIONS: Generalized abdominal pain and weakness beginning 3 days ago. CTDI: vol (mGy) 6.81 DLP: (mGycm) 368 Technique: Multiple axial sections of the abdomen and pelvis have been obtained. 64 slice high-resolution scanner used. 3 mm axial sections have been obtained, post intravenous injection 60 cc Isovue 370 2-D sagittal, coronal reconstructions obtained. Low dose protocols were performed. One or more of the following dose reduction techniques were used; automated exposure control, adjustment of the mA and/or KV according to patient size, use of iterative reconstruction technique. Findings: Moderate enlargement cardiac contour with perihilar edema and moderate to large bilateral pleural effusions Liver is irregular in contour Mild ascites Gallbladder wall is thickened, cholelithiasis Spleen is not enlarged Pancreatic calcifications No hydronephrosis Abdominal aortic calcification no aneurysmal dilatation No bowel obstruction Colonic diverticulosis Appendix is not diagnostically visualized Bladder intact Thickening of the rectal wall Prominent osteopenia with moderate degenerative disc disease L5-S1 IMPRESSION: Heart failure pattern with pulmonary edema and moderate to large bilateral pleural effusions Cirrhosis Mild ascites Cholelithiasis, gallbladder wall is thickened but the patient has ascites, recommend HIDA scan follow-up No bowel obstruction Colonic diverticulosis Thickening of the rectal wall, consider proctitis, recommend direct inspection
--- NOTE | 2024-12-03 18:38 | PD.EDABDPN ---
ED Abdominal Pain RME/HPI General Chief Complaint: Abdominal Pain Stated complaint: ABD PAIN Time seen by provider: 12/03/24 18:32 Arrival date/time: 12/03/24 17:56 Source: patient Mode of arrival: EMS Limitations: no limitations RME / HPI RME / HPI narrative: Patient is a 84-year-old male who is brought in by EMS. He reports having a 3-day history of abdominal pain and chest pain. He has a history of diabetes, hypertension, hyperlipidemia, coronary disease, and prior coronary artery bypass. He does not take any blood thinners. Denies any nausea or vomiting. No changes in bowel movements. He does endorse shortness of breath that has no fevers, chills, or lower leg edema. No other acute complaints. Related Data Home Medications ?Medication ?Instructions ?Recorded ?Confirmed aspirin 325 mg tablet 325 mg PO QDAY ##0 08/04/13 10/05/24 prasugrel HCl 10 mg tablet 10 mg PO QDAY #0 tabs 03/09/17 10/05/24 (Effient) metformin 850 mg tablet 850 mg PO TID 06/02/22 10/05/24 nitroglycerin 0.4 mg sublingual 0.4 mg buccal PRN PRN Chest Pain 06/02/22 10/05/24 tablet temazepam 30 mg capsule 30 mg PO QDAY PRN Insomnia 06/02/22 10/05/24 atorvastatin 40 mg tablet 40 mg PO QPM 10/05/24 10/05/24 cyanocobalamin (vitamin B-12) 2,500 mcg PO QDAY 10/05/24 10/05/24 2,500 mcg tablet magnesium oxide 500 mg capsule 500 mg PO TID 10/05/24 10/05/24 oxybutynin chloride 5 mg tablet 5 mg PO BID PRN bladder spasms 10/05/24 10/05/24 Previous Rx's ?Medication ?Instructions ?Recorded metoprolol succinate 25 mg 25 mg PO QDAY 30 days #30 tabs 12/26/23 tablet,extended release 24 hr Allergies Allergy/AdvReac Type Severity Reaction Status Date / Time No Known Allergies Allergy Verified 10/30/24 10:46 Review of Systems Review of Systems Systems Reviewed: All systems reviewed, normal except as documented ED Exam General Limitations: Present no limitations General appearance: Present alert Head Head exam: Present atraumatic Eye Eye exam: Present normal appearance, PERRL and EOMI ENT ENT exam: Present normal exam, normal oropharynx and mucous membranes moist Neck Neck exam: Present normal inspection, full ROM and trachea midline Chest Chest inspection: Present normal inspection and symmetric chest wall rise Respiratory Respiratory exam: Present normal lung sounds bilaterally Cardiovascular Cardiovascular exam: Present regular rate, normal rhythm and normal heart sounds Abdominal Exam Abdominal exam: Present soft; Absent distention, tenderness or guarding Extremities Exam Extremities exam: Present normal inspection and full ROM Back Exam Back exam: Present normal inspection and full ROM Neurological Exam Neurological exam: Present alert and oriented X3 Psychiatric Psychiatric exam: Present normal affect and normal mood Skin Skin exam: Present warm, dry, intact and normal color Course Quality Measures none Orders Category Date Time Status COVID-19 Screening Questionnaire NOW Care 12/03/24 22:[address] Screening NOW Care 12/03/24 18:36 Active Decision to Admit X1 Care 12/03/24 22:35 Active EKG (ED ONLY) *Do not use* NOW Care 12/03/24 18:[address] abdomen pelvis w con Stat Exams 12/03/24 18:36 Completed EKG (ED Only) Stat Exams 12/03/24 18:36 Draft XR chest 1V Stat Exams 12/03/24 18:36 Completed BNP [B-Type Natriuretic Peptide] Stat Lab 12/03/24 19:00 Completed CBC Stat Lab 12/03/24 19:00 Completed CMP [Comprehensive Metabolic Panel] Stat Lab 12/03/24 19:00 Completed CMP [Comprehensive Metabolic Panel] Stat Lab 12/03/24 21:48 Ordered Lactic Acid [Lactate (Lactic Acid)] Stat Lab 12/03/24 19:00 Completed Lactic Acid, 3 HR Stat Lab 12/03/24 22:10 Ordered Lipase Stat Lab 12/03/24 19:00 Completed Troponin I Stat Lab 12/03/24 19:00 Completed UA, C/S IF [Urinalysis, C/S if Indicated] Stat Lab 12/03/24 20:30 Completed Calcium Gluconate 10% Inj Med 12/03/24 20:09 Discontinued 1 gm IV X1 ONE Dextrose 50% Syr [D50w Syringe Abboject] Med 12/03/24 20:09 Discontinued 50 ml IVP X1 ONE Furosemide [Lasix] Med 12/03/24 21:49 Discontinued 80 mg PO X1 ONE Insulin Regular Med 12/03/24 20:09 Discontinued 5 unit IV X1 ONE Sodium Chloride 0.9% 1000 ml [Ns] 1,000 ml Med 12/03/24 19:37 Discontinued IV 999 mls/hr fentaNYL INJ [Sublimaze Inj] Med 12/03/24 18:39 Discontinued 25 mcg IVP X1 ONE Vital Signs Vital signs: Vital Signs Temperature 97.6 F 12/03/24 17:58 Pulse Rate 80 12/03/24 17:58 Respiratory Rate 18 12/03/24 17:58 Blood Pressure 121/71 12/03/24 17:58 Pulse Oximetry (%) 97 12/03/24 17:58 Oxygen Delivery Method Room Air 12/03/24 17:58 Abdominal Pain MDM MDM Narrative MDM Narrative:: Patient is a 84-year-old male who is brought in by EMS. He reports having a 3-day history of abdominal pain and chest pain. He has a history of diabetes, hypertension, hyperlipidemia, coronary disease, and prior coronary artery bypass. He does not take any blood thinners. Denies any nausea or vomiting. No changes in bowel movements. He does endorse shortness of breath that has no fevers, chills, or lower leg edema. No other acute complaints. On exam, patient is nontoxic-appearing. Abdominal exam is benign. Workup was initiated. 19:35. CBC reveals no leukocystosis or severe anemia. Lactic acid is 3.2. Remaining labs are pending. CXR reveals cardiomegaly with questionable vascular congestion, radiology read is pending at the time of my review.. 250 ml of NS requested due to the lactic acid and hyponatremia., will be cautious with possible CHF. Patient's remaining labs were reviewed when available, he has no leukocytosis or significant anemia. He is hyponatremic at 123, potassium is 6.4, bicarb is 20.3. Creatinine 1.0. Glucose 128. Initial troponin is negative. Patient was given a dose of calcium, D50, and insulin for his hyperkalemia. This was discussed with attending ER physician, Dr. Fish. BNP was later reviewed and was found to be 1756. A dose of furosemide was requested. Will repeat his labs to look for potassium improvement. CT of the abdomen pelvis was obtained and revealed basilar congestion and mild ascites. There is questionable gallbladder wall thickening and rectal thickening. 22:00, Case discussed with our resident hospitalist who will see the patient and evaluate for admission. Patient data External records reviewed:: [facility] previous records Clinical information provided by:: patient Social determinants that could affect healthcare access:: none Patient has the following chronic illnesses:: Atrial flutter, CHF How is presenting disease/condition affected by chronic disease/condition?: exacerbated by Evaluation data The following diagnostics were reviewed and interpreted by me:: lab results (Workup reveals hyponatremia, hyperkalemia, and elevated BNP), radiology exam(s) (Chest x-ray reveals pulmonary congestion, CT of the abdomen pelvis reveals ascites and pulmonary congestion) and EKG tracing(s) (Atrial flutter at 69 bpm, this is chronic) Lab and/or radiology exams considered but not ordered:: n/a Interpretation Summary: Ascites, CHF, hyponatremia, hyperkalemia Medications / Prescriptions Medications or Prescriptions considered but not ordered:: n/a Medication administrations:: Medication Administration History Discontinued Medications Calcium Gluconate (Calcium Gluconate 10% Inj 1 Gm/10 Ml Vial) 1 gm IV X1 ONE Stop: 12/03/24 20:10 Last Admin: 12/03/24 20:21 Dose: 1 gm Documented By: DIXON Dextrose (Dextrose 50%-Water Inj 50 Ml Syringe) 50 ml IVP X1 ONE Stop: 12/03/24 20:10 Last Admin: 12/03/24 20:20 Dose: 50 ml Documented By: DIXON Fentanyl Citrate (Fentanyl Cit Inj 50 Mcg/Ml Amp 2ml) 25 mcg IVP X1 ONE Stop: 12/03/24 18:40 Last Admin: 12/03/24 19:39 Dose: 25 mcg Documented By: DIXON Furosemide (Furosemide 40 Mg Tablet) 80 mg PO X1 ONE Stop: 12/03/24 21:50 Last Admin: 12/03/24 21:59 Dose: 80 mg Documented By: DIXON Sodium Chloride (Ns) 1,000 mls @ 999 mls/hr IV .Q1H1M ONE Stop: 12/03/24 20:37 Last Infusion: 12/03/24 21:20 Dose: Infused Documented By: Admin: 12/03/24 19:41 Dose: 999 mls/hr Documented By: DIXON Insulin Human Regular (Insulin Hum Regular 1 Unit/0.01 Ml (Per Unit)) 5 unit IV X1 ONE Stop: 12/03/24 20:10 Last Admin: 12/03/24 20:20 Dose: 5 unit Documented By: DIXON Co-signed By: KOURTNEY n/a Consultations Consultation(s) initiated? (list below): No Diagnosis Differential diagnosis abdominal pain: other Most likely diagnosis given after review of the tests above:: CHF, hyponatremia, hyperkalemia, ascites Admission Indicated Admission indicated?: indicated Admission Request Was there a request for admission?: Yes Admission Attestation Admission request attestation: Discussed case with [] from Hospitalist service regarding admission. Discussed patients ED course, exam findings, labs, and radiology results. The Hospitalist [agrees,declines] to accept the patient for admission. Disposition Plan Disposition Plan: Admit Discharge Plan Plan Patient Disposition: Admit Acute Care w/in Hospital Patient condition on transfer: Stable Prescriptions/Referrals Prescriptions/Med Rec: No Action aspirin 325 MG tablet 325 mg PO QDAY Qty: 0 prasugrel HCl [Effient] 10 MG tablet 10 mg PO QDAY Qty: 0 metformin 850 mg tablet 850 mg PO TID Patient Comments: TAKE 1 TABLET BY MOUTH THREE TIMES DAILY temazepam 30 mg capsule 30 mg PO QDAY PRN (Reason: Insomnia) Patient Comments: TAKE 1 CAPSULE BY MOUTH ONCE DAILY NEEDED nitroglycerin 0.4 mg Tablet, Sublingual 0.4 mg BUCCAL PRN PRN (Reason: Chest Pain) metoprolol succinate 25 mg Tablet Extended Release 24 Hr 25 mg PO QDAY 30 Days Qty: 30 2RF atorvastatin 40 mg tablet 40 mg PO QPM magnesium oxide 500 mg capsule 500 mg PO TID oxybutynin chloride 5 mg tablet 5 mg PO BID PRN (Reason: bladder spasms) cyanocobalamin (vitamin B-12) 2,500 mcg tablet 2,500 mcg PO QDAY Referrals: Kevin Huddleston MD [Primary Care Provider] - In 1 week Problem List Clinical Impression: Acute hyponatremia, Acute hyperkalemia, Ascites, CHF (congestive heart failure) Patient/Caregiver Discharge Instructions Print Language: Macedonian Stand Alone Forms: Bonnie Award Info., Patient Portal Info Letter
[2024-12-03 19:16] LABS: Lactate (Lactic Acid) 3.2 mMol/L (0.4-2.0)
[2024-12-03 19:24] LABS: Basophils # (Auto) 0.0 Thou/mm3 (0.0-0.2); Basophils % (Auto) 0 % (0-2.5); Eosinophils # (Auto) 0.1 Thou/mm3 (0.0-0.5); Eosinophils % (Auto) 1 % (0-10); Hematocrit 40.4 % (41.0-53.0); Hemoglobin 13.1 g/dL (13.5-16.0); Immature Granulocytes Auto 0.08 Thou/mm3 (0.00-0.00); Lymphocytes # (Auto) 0.9 Thou/mm3 (1.0-4.8); Lymphocytes % (Auto) 8 % (10-50); Mean Corpuscular HGB Conc 32.4 g/dl (31.0-37.0); Mean Corpuscular Hemoglobin 25.9 pg (25.0-35.0); Mean Corpuscular Volume 80 fL (80-100); Monocytes # (Auto) 0.7 Thou/mm3 (0.0-0.8); Monocytes % (Auto) 7 % (0-12); Neutrophils # (Auto) 8.7 Thou/mm3 (1.8-7.7); Neutrophils % (Auto) 83 % (37-80); Nucleated Red Blood Cell # 0.00 Thou/mm3 (0.00-0.00); Nucleated Red Blood Cell % 0 /100 WBC (0); Platelet Count 230 Thou/mm3 (140-440); RDW Standard Deviation 46.9 fL (35.1-43.9); Red Blood Count 5.05 Miln/mm3 (4.50-5.90); White Blood Count 10.4 Thou/mm3 (3.8-10.6)
[2024-12-03] MEDS: fentaNYL CIT INJ 50 mCg/ML AMP 2ML 25 MCG IVP (19:39)
[2024-12-03] MEDS: SODIUM CHLORIDE 0.9% 1000 ML 1,000 ML 999 ML IV (19:41)
[2024-12-03 19:53] LABS: Alanine Aminotransferase 13 U/L (10-49); Albumin, Serum 4.4 gm/dL (3.4-4.8); Albumin/Globulin Ratio 2.0 (1.2-2.2); Alkaline Phosphatase 164 U/L (46-116); Anion Gap 13 (7-16); Aspartate Amino Transferase 26 U/L (0-34); BUN/Creatinine Ratio 12 Ratio (12-20); Bilirubin,Total 0.8 mg/dL (0.3-1.2); Blood Urea Nitrogen 12 mg/dL (9-23); Calcium 9.7 mg/dL (8.3-10.6); Calcium (Corrected) 9.7 mg/dL (8.5-10.1); Carbon Dioxide 20.3 mMol/L (20.0-31.0); Chloride 90 mMol/L (98-107); Creatinine (Component) 1.0 mg/dL (0.6-1.3); Estimated Creatinine Clearance 55.1 mL/min (>60); Globulin 2.2 gm/dL (2.3-3.5); Glucose 128 mg/dL (74-106); Lipase 30 U/L (12-53); Osmolality,Calculated 249 (275-295); Sodium 123 mMol/L (136-145); Total Protein 6.6 gm/dL (5.7-8.2); Troponin I < 0.020 ng/mL (0.0-0.045); eGFR > 60 See Note
[2024-12-03 19:56] LABS: Potassium 6.4 mMol/L (3.4-5.1)
[2024-12-03 19:57] LABS: B-Type Natriuretic Peptide 1756 pg/mL (0-100)
[2024-12-03] MEDS: INSULIN HUM REGULAR 1 UNIT/0.01 ML (PER UNIT) 5 UNIT IV (20:20)
[2024-12-03] MEDS: DEXTROSE 50%-WATER INJ 50 ML SYRINGE IVP (20:20)
[2024-12-03] MEDS: CALCIUM GLUCONATE 10% INJ 1 GM/10 ML VIAL IV (20:21)
[2024-12-03 20:34] LABS: Acanthocytes 2+
[2024-12-03 20:40] LABS: Collection Type, Urine Voided; WBC,Urine 0 /hpf (0-5)
[2024-12-03 20:48] LABS: Bacteria,Urine Rare; Bilirubin,Urine Negative (Negative); Blood,Urine Trace (Negative); Clarity,Urine Turbid (Clear/Hazy); Color,Urine Yellow (Lt Yel-Yel); Culture Indicated,Urine Not Indicated; Glucose, Urine Negative (Negative); Ketones,Urine 1+ (Negative); Leukocyte Esterase,Urine Negative (Negative); Nitrite,Urine Negative (Negative); PH,Urine 6.5 (5.0-7.0); Protein,Urine 1+ (Neg - Trace); RBC,Urine 4 /hpf (0-3); Specific Gravity,Urine 1.020 (1.001-1.035); Squamous Epithelial Cell,Urine 22 /hpf (0-5); Urobilinogen,Urine 4.0 mg/dL (0.0-1.0)
[2024-12-03 21:59] VITALS: BP 125/94; PULSE 66
[2024-12-03 22:05] VITALS: BP 136/70; PULSE 66; RESP 19; TEMP 36.7; O2SAT 97
[2024-12-03 22:10] LABS: Reflex Lactate? Y
[2024-12-03 23:10] LABS: Lactic Acid, 3 HR 3.4 mMol/L (0.4-2.0)
[2024-12-03 23:30] LABS: Alanine Aminotransferase 25 U/L (10-49); Albumin, Serum 4.7 gm/dL (3.4-4.8); Albumin/Globulin Ratio 2.0 (1.2-2.2); Alkaline Phosphatase 180 U/L (46-116); Anion Gap 13 (7-16); Aspartate Amino Transferase 32 U/L (0-34); BUN/Creatinine Ratio 14 Ratio (12-20); Bilirubin,Total 1.0 mg/dL (0.3-1.2); Blood Urea Nitrogen 14 mg/dL (9-23); Calcium 10.4 mg/dL (8.3-10.6); Calcium (Corrected) 10.4 mg/dL (8.5-10.1); Carbon Dioxide 22.0 mMol/L (20.0-31.0); Chloride 90 mMol/L (98-107); Creatinine (Component) 1.0 mg/dL (0.6-1.3); Estimated Creatinine Clearance 55.1 mL/min (>60); Globulin 2.4 gm/dL (2.3-3.5); Glucose 99 mg/dL (74-106); Osmolality,Calculated 252 (275-295); Potassium 5.1 mMol/L (3.4-5.1); Sodium 125 mMol/L (136-145); Total Protein 7.1 gm/dL (5.7-8.2); eGFR > 60 See Note
--- NOTE | 2024-12-03 23:51 | ESHP_ITS ---
Documentation for date of: 12/03/24 [facility] History of Present Illness Chief complaint: Chest pain and abdominal pain History of present illness: 84-year-old male with a past medical history of coronary artery disease s/p CABG and multiple stents, ischemic cardiomyopathy with AICD (placed September 2024), hypertension, hyperlipidemia, type 2 diabetes mellitus, and prior pneumonia, who presents with 3 days of abdominal and chest pain. Patient describes chest discomfort as constant across the chest, present even at rest, associated with progressive shortness of breath over the past 2?3 weeks. He notes difficulty breathing worsened in the past 1?2 days. He denies exertional triggers, cough, fevers, chills, or lower extremity edema. Abdominal discomfort is generalized more so on the right side, non-radiating, associated with poor appetite, but without nausea, vomiting, diarrhea, constipation, or hematochezia. He denies urinary symptoms, hematuria, or dysuria. His reports poor oral intake and worsening fatigue. No recent falls, trauma, or ICD shocks. Patient was found in the ED to have hyponatremia (Na 123), hyperkalemia (K 6.4), elevated BNP (1756), lactic acid 3.2, and CT abdomen/pelvis notable for CHF pattern with pulmonary edema, bilateral pleural effusions, cirrhosis with mild ascites, gallbladder wall thickening, and rectal wall thickening. Troponin was negative. LFTs normal. He was given 80 mg PO furosemide, Ca gluconate, insulin/D50 in the ED. ROS * Constitutional: Fatigue, poor appetite, weight loss. No fever or chills. * CV: Chest discomfort, dyspnea. No palpitations, syncope, or edema. * Pulm: SOB, no cough, no sputum, no hemoptysis. * GI: Abdominal pain, poor appetite. No N/V/D, no melena, no hematochezia. * : No dysuria, hematuria, frequency. * Neuro: No weakness, confusion, syncope, or focal deficits reported. * MSK: Chronic frailty, no acute joint pain. * Skin: No rashes or lesions. * Psych: Baseline mild dementia, no acute agitation. Past Medical History * CAD, ischemic cardiomyopathy, s/p CABG 1996, multiple stents, AICD September 2024 * Hypertension * Hyperlipidemia * Type 2 diabetes mellitus (A1c 5.7%) * History of pneumonia (May 2024) * Cirrhosis (newly noted on imaging) * Chronic malnutrition, weight loss * Mild dementia Past Surgical History * CABG x4 (1996) * Multiple coronary stents (10+) * AICD placement (10/05/24) * Right IOL replacement Medications (per prior records, to be confirmed) * Aspirin * Atorvastatin * Metoprolol * Metformin (hold inpatient) * Megace * Effient (hold inpatient) * Temazepam * Tylenol * Nitro PRN Allergies * No known drug allergies Family History * Heart disease, multiple cancers Social History * Lives with Ryan * Former smoker, denies alcohol * Wheelchair-bound, frail, dependent for ADLs Exam Vital Signs Temp Pulse Resp BP Pulse Ox O2 Del Method 98.1 F 66 19 136/70 H 97 Room Air 12/03/24 22:05 12/03/24 22:05 12/03/24 22:05 12/03/24 22:05 12/03/24 22:05 12/03/24 22:05 Narrative Exam General: Cachectic, elderly male, appears fatigued, not in acute distress HEENT: No JVD, no scleral icterus Cardiac: Regular rate/rhythm, no murmurs/rubs/gallops, AICD in place Lungs: Bibasilar crackles, no wheezing Abdomen: Soft, mildly tender RUQ, no rebound/guarding, no distension Extremities: No edema, pulses intact Neuro: Awake, oriented ?2, baseline mild cognitive impairment, nonfocal Skin: Warm, dry, no lesions Results: Labs 12/03/24 19:00 12/04/24 04:05 Labs: Short CBC 12/03/24 Range/Units 19:00 WBC 10.4 (3.8-10.6) Thou/mm3 Hgb 13.1 L (13.5-16.0) g/dL Hct 40.4 L (41.0-53.0) % Plt Count 230 D (140-440) Thou/mm3 BMP 12/03/24 12/03/24 19:00 23:06 Sodium 123 L 125 L Potassium 6.4 H* 5.1 D Chloride 90 L 90 L Carbon Dioxide 20.3 22.0 BUN 12 14 Creatinine 1.0 1.0 Glucose 128 H 99 Calcium 9.7 10.4 Cardiac Enzymes 12/03/24 Range/Units 19:00 Troponin I < 0.020 (0.0-0.045) ng/mL Liver Function 12/03/24 12/03/24 Range/Units 19:00 23:06 Total Bilirubin 0.8 1.0 (0.3-1.2) mg/dL AST 26 32 (0-34) U/L ALT 13 25 (10-49) U/L Alkaline Phosphatase 164 H 180 H (46-116) U/L Albumin 4.4 4.7 (3.4-4.8) gm/dL Urine 12/03/24 Range/Units 20:30 Urine Color Yellow (Lt Yel-Yel) Urine Clarity Turbid A (Clear/Hazy) Urine pH 6.5 (5.0-7.0) Ur Specific Hubbard 1.020 (1.001-1.035) Urine Protein 1+ A (Neg - Trace) Urine Glucose (UA) Negative (Negative) Quality Measures Quality Measures VTE prophylaxis Advance care planning discussed with:: patient and spouse Medications Home Medications and Allergies Home Medications ?Medication ?Instructions ?Recorded ?Confirmed ?Type aspirin 325 mg tablet 325 mg PO QDAY ##0 08/04/13 10/05/24 History prasugrel HCl 10 mg tablet 10 mg PO QDAY #0 tabs 03/0910/05/24 History (Effient) metformin 850 mg tablet 850 mg PO TID 06/02/2210/05 History nitroglycerin 0.4 mg sublingual 0.4 mg buccal PRN PRN Chest Pain 06/02/22 10/05/24 History tablet temazepam 30 mg capsule 30 mg PO QDAY PRN Insomnia 0 06/02/22 10/05/24 History atorvastatin 40 mg tablet 40 mg PO QPM 10/05/24 History cyanocobalamin (vitamin B-12) 2,500 mcg PO QDAY 10/05/24 History 2,500 mcg tablet magnesium oxide 500 mg capsule 500 mg PO TID 10/05/24 10/05/24 History oxybutynin chloride 5 mg tablet 5 mg PO BID PRN bladde r spasms 10/05/24 10/05/24 History Allergies Allergy/AdvReac Type Severity Reaction Status Date / Time No Known Allergies Allergy Verified 10/30/24 10:46 Visit Medications Acetaminophen (Acetaminophen 325 Mg Tablet) 650 mg PO Q6H PRN PRN Reason: Fever >100.4 Stop: 01/02/25 23:37 Acetaminophen (Acetaminophen 325 Mg Tablet) 650 mg PO Q6H PRN PRN Reason: PAIN SCALE 1-3 (mild Stop: 01/02/25 23:37 Hydrocodone Bitart/Acetaminophen (Hydrocodone/Apap 5/325 Tablet) 1 tab PO Q4HR PRN PRN Reason: PAIN SCALE 4-10(Mod-Sev Stop: 12/08/24 23:37 Enoxaparin Sodium (Enoxaparin Sod Inj 40 Mg/0.4 Ml Syringe) 40 mg SC QDAY [facility] Stop: 12/18/24 08:59 Ondansetron HCl (Ondansetron Inj 2 Mg/Ml Inj 2 Ml) 4 mg IVP Q6H PRN; Protocol PRN Reason: NAUSEA OR VOMITING Stop: 01/02/25 23:37 Pantoprazole Sodium (Pantoprazole Inj 40 Mg Vial) 40 mg IVP QDAY [facility] Stop: 01/03/25 08:59 Sennosides (Senna Tablet) 1 tab PO QDAY PRN; Protocol PRN Reason: constipation Stop: 01/02/25 23:37 Discontinued Medications Calcium Gluconate (Calcium Gluconate 10% Inj 1 Gm/10 Ml Vial) 1 gm IV X1 ONE Stop: 12/03/24 20:10 Last Admin: 12/03/24 20:21 Dose: 1 gm Dextrose (Dextrose 50%-Water Inj 50 Ml Syringe) 50 ml IVP X1 ONE Stop: 12/03/24 20:10 Last Admin: 12/03/24 20:20 Dose: 50 ml Fentanyl Citrate (Fentanyl Cit Inj 50 Mcg/Ml Amp 2ml) 25 mcg IVP X1 ONE Stop: 12/03/24 18:40 Last Admin: 12/03/24 19:39 Dose: 25 mcg Furosemide (Furosemide 40 Mg Tablet) 80 mg PO X1 ONE Stop: 12/03/24 21:50 Last Admin: 12/03/24 21:59 Dose: 80 mg Sodium Chloride (Ns) 1,000 mls @ 999 mls/hr IV .Q1H1M ONE Stop: 12/03/24 20:37 Last Infusion: 12/03/24 21:20 Dose: Infused Insulin Human Regular (Insulin Hum Regular 1 Unit/0.01 Ml (Per Unit)) 5 unit IV X1 ONE Stop: 12/03/24 20:10 Last Admin: 12/03/24 20:20 Dose: 5 unit Assessment & Plan Plan 84M with ischemic cardiomyopathy s/p CABG, HFrEF (EF 30%) with AICD, CAD, DM2, HTN, HLD, cirrhosis with mild ascites, presenting with 3 days of chest and abdominal pain, found to have acute decompensated heart failure with hypervolemic hyponatremia and hyperkalemia, now admitted for stabilization and electrolyte management, DNR/DNI. # Acute decompensated heart failure with EF 30% # Bl pleural effusion # Lactic Acisdosis Elderly male with ischemic cardiomyopathy, prior CABG and AICD, presenting with chest pain, progressive SOB, and elevated BNP (1756). CXR/CT showing pulmonary edema and bilateral pleural effusions. Received Lasix 80 mg PO? in ED while Hyponatremic (Na 123), so further diuresis held. Hemodynamically stable on RA. Plan: * Hold further diuretics for now * Recheck Na and K at 2 AM * F/U lactic acid * Fluid restriction 1.2 L/day * Consider therapeutic thoracentesis if symptoms worsen * Strict I&O, daily weights, telemetry monitoring * Cardiology consult in AM # Hyperkalemia Admission K 6.4, treated with Ca, insulin, and D50 in ED. No arrhythmias noted. Needs repeat lab confirmation. Plan: * Recheck BMP at 2 AM * Telemetry monitoring * Consider Lokelma if K remains >5.5 * Avoid ACEi/ARB/K-sparing diuretics for now # Hyponatremia Na 123, likely hypervolemic from CHF/cirrhosis. Patient is clinically euvolemic to hypervolemic. Plan: * Fluid restriction 1.2 L/day * Trend Na with morning BMPs * Hold direutics * Correct underlying volume overload cautiously # Cirrhosis with mild ascites CT abdomen shows cirrhosis and mild ascites. LFTs WNL (AST 32, ALT 25). Etiology unclear; no history of ETOH. Plan: * INR and hepatitis panel ordered * Monitor for ascites progression * Avoid hepatotoxic medications # Possible gallbladder wall thickening / rectal wall thickening CT shows GB wall thickening and rectal wall thickening. Patient reports generalized abdominal discomfort but no pain, fever, N/V/D No current RUQ tenderness, fever, or leukocytosis. Could be related to ascites vs early cholecystitis. Plan: * Monitor for abdominal pain, fever, or leukocytosis * HIDA scan if RUQ pain worsens or LFTs increase * GI outpatient referral for rectal wall thickening # CAD s/p CABG & AICD Longstanding severe CAD, s/p CABG and stents, AICD placed September 2024. Troponin negative, chest pain likely demand-related vs from decompensated CHF. No evidence of acute ischemia. Plan: * No further troponins unless CP worsens * Continue aspirin, atorvastatin, metoprolol once med rec's are back * Hold Effient for now # Type 2 Diabetes Mellitus Glucose 128, A1c previously 5.7%. Stable. Plan: * SSI inpatient * Hold metformin during acute illness # Malnutrition / frailty 30 lb weight loss since last year, poor appetite, cachectic, wheelchair dependent. Plan: * Nutrition consult for supplementation * Continue Megace if tolerated * PT for mobility and strengthening Health Maintenance: Disposition: Admit to [facility] tele Feeding: Cardiac diet, carb consistent; fluid restriction 1.2 L/day Thromboprophylaxis: SQ heparin GI prophylaxis: Protonix daily Code Status: DNR/DNI ----- Plan discussed with attending physician Dr. Alan Peter MD PGY-1 Internal Medicine Attending Provider Attestation/Addendum After examination of the patient and review of the clinical data I feel that this patient needs admission to the hospital for further treatment/evaluation. I Antwan Phillips MD, attest that I was physically present for smith portions of evaluation, and examined patient, labs and imagings and plan of care were discussed with IM residents team, and I agree with the findings and plans documented above.
[2024-12-04] VITALS (10 sets, daily range): BP systolic 136–157; BP diastolic 74–89; PULSE 64–82; RESP 16–23; TEMP 36.2–37; O2SAT 93–100; BMI 24.7; BMI 13.0
[2024-12-04] MEDS: HYDROcodone/APAP 5/325 TABLET 1 TAB PO (02:29)
[2024-12-04 04:25] LABS: Potassium 4.3 mMol/L (3.4-5.1); Sodium 129 mMol/L (136-145)
[2024-12-04 06:34] LABS: Lactate (Lactic Acid) 2.3 mMol/L (0.4-2.0)
[2024-12-04 06:40] LABS: Basophils # (Auto) 0.0 Thou/mm3 (0.0-0.2); Basophils % (Auto) 0 % (0-2.5); Eosinophils # (Auto) 0.0 Thou/mm3 (0.0-0.5); Eosinophils % (Auto) 0 % (0-10); Hematocrit 34.9 % (41.0-53.0); Hemoglobin 11.7 g/dL (13.5-16.0); Immature Granulocytes Auto 0.06 Thou/mm3 (0.00-0.00); Lymphocytes # (Auto) 0.6 Thou/mm3 (1.0-4.8); Lymphocytes % (Auto) 5 % (10-50); Mean Corpuscular HGB Conc 33.5 g/dl (31.0-37.0); Mean Corpuscular Hemoglobin 26.7 pg (25.0-35.0); Mean Corpuscular Volume 80 fL (80-100); Monocytes # (Auto) 0.8 Thou/mm3 (0.0-0.8); Monocytes % (Auto) 7 % (0-12); Neutrophils # (Auto) 9.6 Thou/mm3 (1.8-7.7); Neutrophils % (Auto) 87 % (37-80); Nucleated Red Blood Cell # 0.00 Thou/mm3 (0.00-0.00); Nucleated Red Blood Cell % 0 /100 WBC (0); Platelet Count 207 Thou/mm3 (140-440); RDW Standard Deviation 46.5 fL (35.1-43.9); Red Blood Count 4.38 Miln/mm3 (4.50-5.90); White Blood Count 11.0 Thou/mm3 (3.8-10.6)
[2024-12-04 06:56] LABS: INR 1.5 (0.9-1.3); Prothrombin Time 16.2 Seconds (9.0-12.2)
[2024-12-04 07:10] LABS: Alanine Aminotransferase 129 U/L (10-49); Albumin, Serum 4.2 gm/dL (3.4-4.8); Albumin/Globulin Ratio 2.1 (1.2-2.2); Alkaline Phosphatase 162 U/L (46-116); Anion Gap 14 (7-16); Aspartate Amino Transferase 122 U/L (0-34); BUN/Creatinine Ratio 18 Ratio (12-20); Bilirubin,Total 1.2 mg/dL (0.3-1.2); Blood Urea Nitrogen 18 mg/dL (9-23); Calcium 10.0 mg/dL (8.3-10.6); Calcium (Corrected) 10.0 mg/dL (8.5-10.1); Carbon Dioxide 22.7 mMol/L (20.0-31.0); Chloride 89 mMol/L (98-107); Creatinine (Component) 1.0 mg/dL (0.6-1.3); Estimated Creatinine Clearance 55.1 mL/min (>60); Globulin 2.0 gm/dL (2.3-3.5); Glucose 116 mg/dL (74-106); Magnesium 1.0 mg/dL (1.6-2.6); Osmolality,Calculated 256 (275-295); Phosphorous 3.7 mg/dL (2.4-5.1); Potassium 5.0 mMol/L (3.4-5.1); Sodium 126 mMol/L (136-145); Total Protein 6.2 gm/dL (5.7-8.2); eGFR > 60 See Note
[2024-12-04 07:37] LABS: Hepatitis A Antibody IgM Non Reactive (Non React); Hepatitis B Core Antibody IgM Non Reactive (Non React); Hepatitis B Surface Antigen Non Reactive (Non React); Hepatitis C Antibody Non Reactive (Non React)
[2024-12-04] MEDS: HEPARIN SOD INJ 5000 UNIT/ML VIAL SC ×2 (08:23→21:32)
[2024-12-04] MEDS: MEGESTROL ACET 20 MG TABLET 40 MG PO (08:24)
[2024-12-04] MEDS: Magnesium Sulfate 4 GM Ivpb 4 GM/50 ML BAG IV ×2 (08:24→12:20)
--- NOTE | 2024-12-04 08:30 | PD.IMCONS ---
HPI Data of Consult Requesting Physician: Antwan Phillips MD Primary Care Provider: Kevin Huddleston MD Consult Narrative History of present illness: This is a 84-year-old male with a past medical history of coronary artery disease s/p CABG and multiple stents, ischemic cardiomyopathy with AICD (placed September 2024), hypertension, hyperlipidemia, type 2 diabetes mellitus, and prior pneumonia, Patient was seen in the shortness of breath for about 2 to 3 weeks In the emergency room patient was noted to have electrolyte abnormalities with hyponatremia hypokalemia chest x-ray shows congestive heart failure pleural effusion EKG shows rate controlled atrial fibrillation cc:: cc: Antwan Phillips MD Meds Home Medications and Allergies Home Medications ?Medication ?Instructions ?Recorded ?Confirmed ?Type aspirin 325 mg tablet 325 mg PO QDAY ##0 08/04/13 10/05/24 History prasugrel HCl 10 mg tablet 10 mg PO QDAY #0 tabs 03/09/17 10/05/24 History (Effient) metformin 850 mg tablet 850 mg PO TID 06/02/22 10/05/24 History nitroglycerin 0.4 mg sublingual 0.4 mg buccal PRN PRN Chest Pain 06/02/22 10/05/24 History tablet temazepam 30 mg capsule 30 mg PO QDAY PRN Insomnia 06/02/22 10/05/24 History atorvastatin 40 mg tablet 40 mg PO QPM 10/05/24 10/05/24 History cyanocobalamin (vitamin B-12) 2,500 mcg PO QDAY 10/05/24 10/05/24 History 2,500 mcg tablet magnesium oxide 500 mg capsule 500 mg PO TID 10/05/24 10/05/24 History oxybutynin chloride 5 mg tablet 5 mg PO BID PRN bladder spasms 10/05/24 10/05/24 History Allergies Allergy/AdvReac Type Severity Reaction Status Date / Time No Known Allergies Allergy Verified 10/30/24 10:46 Exam Vital Signs Temp Pulse Resp BP Pulse Ox O2 Del Method 97.1 F 67 16 157/84 H 93 L Room Air 12/04/24 07:47 12/04/24 07:47 12/04/24 07:47 12/04/24 07:47 12/04/24 07:47 12/04/24 07:47 Routine HEENT Exam Head: Present normocephalic and atraumatic Eye: Present EOMI and PERRL ENT: Present mucous membranes moist Routine Neck Exam Neck: Present supple and trachea midline Routine Respiratory Exam Respiratory: Present chest non-tender, lungs clear, normal breath sounds and no resp distress Routine Cardiovascular Exam Cardiovascular: Present RRR Routine Abdominal Exam Abdominal: Present soft and normoactive bowel sounds Routine Extremities Exam Extremities: Present full ROM Routine Skin Exam Skin: Present intact, dry and warm Routine Neurological Exam Neurological: Present alert, oriented X3 and CN II-XII intact Routine Psychiatric Exam Psychiatric: Present normal affect and normal thought process Results Labs 12/04/24 06:10 12/04/24 06:10 Labs: Short CBC 12/03/24 12/04/24 Range/Units 19:00 06:10 WBC 10.4 11.0 H (3.8-10.6) Thou/mm3 Hgb 13.1 L 11.7 L (13.5-16.0) g/dL Hct 40.4 L 34.9 L (41.0-53.0) % Plt Count 230 D 207 (140-440) Thou/mm3 BMP 12/03/24 12/03/24 12/04/24 19:00 23:06 04:05 Sodium 123 L 125 L 129 L Potassium 6.4 H* 5.1 D 4.3 D Chloride 90 L 90 L Carbon Dioxide 20.3 22.0 BUN 12 14 Creatinine 1.0 1.0 Glucose 128 H 99 Calcium 9.7 10.4 12/04/24 06:10 Sodium 126 L Potassium 5.0 D Chloride 89 L Carbon Dioxide 22.7 BUN 18 Creatinine 1.0 Glucose 116 H Calcium 10.0 Cardiac Enzymes 12/03/24 Range/Units 19:00 Troponin I < 0.020 (0.0-0.045) ng/mL Liver Function 12/03/24 12/03/24 12/04/24 Range/Units 19:00 23:06 06:10 Total Bilirubin 0.8 1.0 1.2 (0.3-1.2) mg/dL AST 26 32 122 H (0-34) U/L ALT 13 25 129 H (10-49) U/L Alkaline Phosphatase 164 H 180 H 162 H (46-116) U/L Albumin 4.4 4.7 4.2 D (3.4-4.8) gm/dL Urine // Range/Units 20:30 Urine Color Yellow (Lt Yel-Yel) Urine Clarity Turbid A (Clear/Hazy) Urine pH 6.5 (5.0-7.0) Ur Specific [place] 1.020 (1.001-1.035) Urine Protein 1+ A (Neg - Trace) Urine Glucose (UA) Negative (Negative) Assessment and Plan Assessment and plan (1) CHF (congestive heart failure): Status: Acute (2) Ascites: Status: Acute (3) Acute hyperkalemia: Status: Acute (4) Acute hyponatremia: Status: Acute (5) Atrial flutter: Status: Acute (6) S/P CABG x 4: Status: Acute (7) CAD (coronary artery disease): Status: Acute Additional Assessment & Plan Additional Plan: Patient has prior history of ischemic cardiomyopathy In April 09 ejection fraction was 30 to 35% Patient already has an AICD in place Agree with current treatment of diuretics Patient appears hemodynamically stable ;we will optimize heart failure medications obtain baseline troponin level
[2024-12-04 09:22] LABS: Reflex Lactate? Y
--- NOTE | 2024-12-04 10:11 | PD.RESCONSUL ---
HPI Data of Consult Requesting Physician: Antwan Phillips MD Admitting Provider: Antwan Phillips MD Attending Provider: Antwan Phillips MD Primary Care Provider: Kevin Huddleston MD Consult Narrative History of present illness: is a -year-old with a PMH of who presents today with In the ED, vitals showed: BP HR RR Temp SpO2 on room air ED Course: CBC showed Imaging: In the ED, patient was started on Patient was admitted for the work-up and management of was consulted and is closely following the case. cc:: cc: Antwan Phillips MD Review of Systems Review of Systems Narrative Review of Systems: General: Denies fevers or chills HEENT: Denies congestion or sore throat Heart: Denies chest pain or palpitations Lungs: Denies shortness of breath or cough Abdomen: Denies abdominal pain, nausea, vomiting, constipation, diarrhea, or blood in stool Genitourinary: Denies frequency, urgency, dysuria, or hematuria Neurology: Denies any changes in vision, weakness or difficulty speaking Review of systems otherwise negative except what is mentioned above. Past Medical History Past Medical History Comments PMH COMMENT: PMH: PSH: Medications: Allergies: FH: SH: Exam Vital Signs Temp Pulse Resp BP Pulse Ox O2 Del Method 97.1 F 67 16 157/84 H 93 L Room Air 12/04/24 07:47 12/04/24 07:47 12/04/24 07:47 12/04/24 07:47 12/04/24 07:47 12/04/24 07:47 Narrative Exam Physical Exam: General: Alert, no acute distress. Skin: Warm, dry, intact, no obvious rash. Head: Normocephalic, atraumatic. Eye: Normal conjunctiva, PERRL. Throat: Oral mucosa moist. Cardiovascular: Regular rate and rhythm, no murmur, normal peripheral perfusion, no edema. Respiratory: Lungs are clear to auscultation, respirations non labored, no crackles, no wheezing. Gastrointestinal: Soft, nontender, non-distended. Psychiatric: Cooperative, appropriate affect. Neuro: Mental status: Alert, oriented, appropriately responding to commands. Speech/Language: Speech fluent, no word finding difficulty or paraphasic errors observed. Language-comprehension, repetition and naming intact. No dysarthria noted. Memory: Grossly recent and remote intact. Cranial Nerves: II: No visual deficits and visual brown full to confrontation. Pupils 3-5 mm size BL round, reactive to light. III, IV, : EOMI, no nystagmus, no ptosis, no APD, smooth pursuit without saccadic intrusion, conjugate horizontal gaze intact. V: Gross sensation intact in V1, V2 and V3 distribution to crude touch. Jaw strength normal. VII: No facial asymmetry, able to smile symmetrically and BL good eye closure. VIII: Hearing intact in both ears per finger rubbing. IX, X: Symmetrical palate elevation, uvula in midline. XI: Symmetrical head rotation and shoulder shrug. IX, XII: Midline tongue protrusion. No fasciculations or atrophy noted. Sensory examination Crude touch in bilateral upper and lower extremity grossly intact. Motor examination No drift in bilateral upper extremity 5/5 strength in bilateral upper extremity 5/5 strength in bilateral lower extremity 2+ reflexes in biceps, triceps, brachioradialis, patellar, Achilles No Moe's or ankle clonus Coordination [id number] test and [id number] test performed without any difficulty. No dysmetria. Gait Normal-based, good arm swing, no flexor posturing, heel walk, toe walk, tandem gait were normal. Results Labs 12/04/24 06:10 12/04/24 06:10 Labs: Short CBC 12/03/24 12/04/24 Range/Units 19:00 06:10 WBC 10.4 11.0 H (3.8-10.6) Thou/mm3 Hgb 13.1 L 11.7 L (13.5-16.0) g/dL Hct 40.4 L 34.9 L (41.0-53.0) % Plt Count 230 D 207 (140-440) Thou/mm3 BMP 12/03/24 12/03/24 12/04/24 19:00 23:06 04:05 Sodium 123 L 125 L 129 L Potassium 6.4 H* 5.1 D 4.3 D Chloride 90 L 90 L Carbon Dioxide 20.3 22.0 BUN 12 14 Creatinine 1.0 1.0 Glucose 128 H 99 Calcium 9.7 10.4 12/04/24 06:10 Sodium 126 L Potassium 5.0 D Chloride 89 L Carbon Dioxide 22.7 BUN 18 Creatinine 1.0 Glucose 116 H Calcium 10.0 Cardiac Enzymes 12/03/24 Range/Units 19:00 Troponin I < 0.020 (0.0-0.045) ng/mL Liver Function 12/03/24 12/03/24 12/04/24 Range/Units 19:00 23:06 06:10 Total Bilirubin 0.8 1.0 1.2 (0.3-1.2) mg/dL AST 26 32 122 H (0-34) U/L ALT 13 25 129 H (10-49) U/L Alkaline Phosphatase 164 H 180 H 162 H (46-116) U/L Albumin 4.4 4.7 4.2 D (3.4-4.8) gm/dL Urine 12/03/24 Range/Units 20:30 Urine Color Yellow (Lt Yel-Yel) Urine Clarity Turbid A (Clear/Hazy) Urine pH 6.5 (5.0-7.0) Ur Specific [place] 1.020 (1.001-1.035) Urine Protein 1+ A (Neg - Trace) Urine Glucose (UA) Negative (Negative) Quality Measures Quality Measures VTE prophylaxis Medications Home Medications and Allergies Home Medications ?Medication ?Instructions ?Recorded ?Confirmed ?Type aspirin 325 mg tablet 325 mg PO QDAY ##0 08/04/13 10/05/24 History prasugrel HCl 10 mg tablet 10 mg PO QDAY #0 tabs 03/09/17 10/05/24 History (Effient) metformin 850 mg tablet 850 mg PO TID 06/02/22 10/05/24 History nitroglycerin 0.4 mg sublingual 0.4 mg buccal PRN PRN Chest Pain 06/02/22 10/05/24 History tablet temazepam 30 mg capsule 30 mg PO QDAY PRN Insomnia 06/02/22 10/05/24 History atorvastatin 40 mg tablet 40 mg PO QPM 10/05/24 10/05/24 History cyanocobalamin (vitamin B-12) 2,500 mcg PO QDAY 10/05/24 10/05/24 History 2,500 mcg tablet magnesium oxide 500 mg capsule 500 mg PO TID 10/05/24 10/05/24 History oxybutynin chloride 5 mg tablet 5 mg PO BID PRN bladder spasms 10/05/24 10/05/24 History Allergies Allergy/AdvReac Type Severity Reaction Status Date / Time No Known Allergies Allergy Verified 10/30/24 10:46 Visit Medications Acetaminophen (Acetaminophen 325 Mg Tablet) 650 mg PO Q6H PRN PRN Reason: Fever >100.4 Stop: 01/02/25 23:37 Acetaminophen (Acetaminophen 325 Mg Tablet) 650 mg PO Q6H PRN PRN Reason: PAIN SCALE 1-3 (mild Stop: 01/02/25 23:37 Hydrocodone Bitart/Acetaminophen (Hydrocodone/Apap 5/325 Tablet) 1 tab PO Q4HR PRN PRN Reason: PAIN SCALE 4-10(Mod-Sev Stop: 12/08/24 23:37 Last Admin: 12/04/24 02:29 Dose: 1 tab Heparin Sodium (Porcine) (Heparin Sod Inj 5000 Unit/Ml Vial) 5,000 unit SC Q12HR [facility] Stop: 12/18/24 08:59 Last Admin: 12/04/24 08:23 Dose: 5,000 unit Magnesium Sulfate (Magnesium Sulfate Ivpb) 4 gm in 50 mls @ 12.5 mls/hr IV X1 ONE Stop: 12/04/24 12:13 Last Admin: 12/04/24 08:24 Dose: 12.5 mls/hr Magnesium Sulfate (Magnesium Sulfate Ivpb) 4 gm in 50 mls @ 12.5 mls/hr IV X1 ONE Stop: 12/04/24 16:59 Megestrol Acetate (Megestrol Acet 20 Mg Tablet) 40 mg PO QDAY [facility] Stop: 01/03/25 08:59 Last Admin: 12/04/24 08:24 Dose: 40 mg Nitroglycerin (Nitroglycerin 0.4 Mg Subl Btl #25) 0.4 mg SL Q5MIN PRN PRN Reason: CHEST PAIN Ondansetron HCl (Ondansetron Inj 2 Mg/Ml Inj 2 Ml) 4 mg IVP Q6H PRN; Protocol PRN Reason: NAUSEA OR VOMITING Stop: 01/02/25 23:37 Pantoprazole Sodium (Pantoprazole Inj 40 Mg Vial) 40 mg IVP QDAY [facility] Stop: 01/03/25 08:59 Last Admin: 12/04/24 08:24 Dose: 40 mg Sennosides (Senna Tablet) 1 tab PO QDAY PRN; Protocol PRN Reason: constipation Stop: 01/02/25 23:37 Discontinued Medications Calcium Gluconate (Calcium Gluconate 10% Inj 1 Gm/10 Ml Vial) 1 gm IV X1 ONE Stop: 12/03/24 20:10 Last Admin: 12/03/24 20:21 Dose: 1 gm Dextrose (Dextrose 50%-Water Inj 50 Ml Syringe) 50 ml IVP X1 ONE Stop: 12/03/24 20:10 Last Admin: 12/03/24 20:20 Dose: 50 ml Enoxaparin Sodium (Enoxaparin Sod Inj 40 Mg/0.4 Ml Syringe) 40 mg SC QDAY [facility] Stop: 12/18/24 08:59 Fentanyl Citrate (Fentanyl Cit Inj 50 Mcg/Ml Amp 2ml) 25 mcg IVP X1 ONE Stop: 12/03/24 18:40 Last Admin: 12/03/24 19:39 Dose: 25 mcg Furosemide (Furosemide 40 Mg Tablet) 80 mg PO X1 ONE Stop: 12/03/24 21:50 Last Admin: 12/03/24 21:59 Dose: 80 mg Sodium Chloride (Ns) 1,000 mls @ 999 mls/hr IV .Q1H1M ONE Stop: 12/03/24 20:37 Last Infusion: 12/03/24 21:20 Dose: Infused Insulin Human Regular (Insulin Hum Regular 1 Unit/0.01 Ml (Per Unit)) 5 unit IV X1 ONE Stop: 12/03/24 20:10 Last Admin: 12/03/24 20:20 Dose: 5 unit Assessment & Plan Plan Hospital Management: Disposition: Diet: GI Prophylaxis: Bowel Prophylaxis: DVT Prophylaxis: CODE STATUS: Full Code / DNR I have examined the patient and conferred with my attending, , and my senior resident, , regarding them. Perry Mitchell, DO PGY-1 Internal Medicine
[2024-12-04] MEDS: SODIUM CHLORIDE 0.9% 1000 ML 1,000 ML 50 ML IV (11:13)
[2024-12-04 11:21] LABS: Lactic Acid, 3 HR 3.5 mMol/L (0.4-2.0)
--- NOTE | 2024-12-04 11:30 | PC.SS ---
Patient is a 84 year old male presenting to the hospital for chest pain/suprapubic pain. CLAIMS ACCOUNT MANAGER attempted to meet with patient at bedside. Patient was asleep. CLAIMS ACCOUNT MANAGER placed phone call to patient?s Trip ph: [phone]. Patient?s confirmed demographic information and reported patient lives at home with and son. Patient?s stated that patient does not use any DME at home. PCP is Dr. Huddleston next appointment is on 12/10/24. Pharmacy of choice is [facility] or [facility]. Patient confirmed that she is the decision maker and can provide transportation once he is medically cleared. Patient?s would like to discuss d/c plan once she speaks to doctor. Patients stated that she just arrived to the hospital and will discuss plan with family and doctor. PCP: Dr. Huddleston Decision maker: Trip Nelson O/C: discuss at a later time ?
[2024-12-04 11:35] LABS: Sodium 124 mMol/L (136-145)
[2024-12-04 12:34] LABS: Albumin, Serum 4.6 gm/dL (3.4-4.8); Anion Gap 14 (7-16); BUN/Creatinine Ratio 18 Ratio (12-20); Blood Urea Nitrogen 18 mg/dL (9-23); Calcium 10.5 mg/dL (8.3-10.6); Calcium (Corrected) 10.5 mg/dL (8.5-10.1); Carbon Dioxide 23.2 mMol/L (20.0-31.0); Chloride 88 mMol/L (98-107); Creatinine (Component) 1.0 mg/dL (0.6-1.3); Estimated Creatinine Clearance 55.1 mL/min (>60); Glucose 158 mg/dL (74-106); Magnesium 1.9 mg/dL (1.6-2.6); Osmolality,Calculated 256 (275-295); Phosphorous 4.4 mg/dL (2.4-5.1); Potassium 5.4 mMol/L (3.4-5.1); Sodium 125 mMol/L (136-145); eGFR > 60 See Note
--- NOTE | 2024-12-04 15:01 | ESPR_ITS ---
Documentation for date of: 12/04/24 Subjective Subjective Interval history: (much of the note below is pulled from H&P documented by [facility], with slight changes, as patient seemed confused and unable to collect his thoughts when queried) Chief complaint: Chest pain and abdominal pain History of present illness: Hubert Nelson is an 84-year-old male with a past medical history of coronary artery disease s/p CABG and multiple stents, ischemic cardiomyopathy with AICD (placed September 2024), hypertension, hyperlipidemia, type 2 diabetes mellitus, and prior pneumonia, who presents with 3 days of abdominal and chest pain. Of note, patient was recently hospitalized on 10/30/24 for acute hyponatremia. Patient describes chest discomfort as constant across the chest, present even at rest, associated with progressive shortness of breath over the past 2?3 weeks. He notes difficulty breathing worsened in the past 1?2 days. He denies exertional triggers, cough, fevers, chills, or lower extremity edema. Abdominal discomfort is generalized more so on the right side, non-radiating, associated with poor appetite, but without nausea, vomiting, diarrhea, constipation, or hematochezia. He denies urinary symptoms, hematuria, or dysuria. His reports poor oral intake and worsening fatigue. No recent falls, trauma, or ICD shocks. Patient was found in the ED to have hyponatremia (Na 123), hyperkalemia (K 6.4), elevated BNP (1756), lactic acid 3.2, and CT abdomen/pelvis notable for CHF pattern with pulmonary edema, bilateral pleural effusions, cirrhosis with mild ascites, gallbladder wall thickening, and rectal wall thickening. Troponin was negative. LFTs normal. He was given 80 mg PO furosemide, Ca gluconate, insulin/D50 in the ED. ROS * Constitutional: Fatigue, poor appetite, weight loss. No fever or chills. * CV: Chest discomfort, dyspnea. No palpitations, syncope, or edema. * Pulm: SOB, no cough, no sputum, no hemoptysis. * GI: Abdominal pain, poor appetite. No N/V/D, no melena, no hematochezia. * : No dysuria, hematuria, frequency. * Neuro: No weakness, confusion, syncope, or focal deficits reported. * MSK: Chronic frailty, no acute joint pain. * Skin: No rashes or lesions. * Psych: Baseline mild dementia, no acute agitation. Past Medical History * CAD, ischemic cardiomyopathy, s/p CABG 1996, multiple stents, AICD September 2024 * Hypertension * Hyperlipidemia * Type 2 diabetes mellitus (A1c 5.7%) * History of pneumonia (May 2024) * Cirrhosis (newly noted on imaging) * Chronic malnutrition, weight loss * Mild dementia Past Surgical History * CABG x4 (1996) * Multiple coronary stents (10+) * AICD placement (10/05/24) * Right IOL replacement Medications (per prior records, to be confirmed) * Aspirin * Atorvastatin * Metoprolol * Metformin (hold inpatient) * Megace * Effient (hold inpatient) * Temazepam * Tylenol * Nitro PRN Allergies * No known drug allergies Family History * Heart disease, multiple cancers Social History * Lives with Ryan * Former smoker, denies alcohol * Wheelchair-bound, frail, dependent for ADLs Patient was admitted for the work-up and management of acute decompensated heart failure (EF approximately 30%), hypervolemic hyponatremia, and hyperkalemia. Interval History 12/04/2024: No overnight events. Patient seen and examined at bedside. When asked what brought him to the hospital, patient began his reply with the remark that he had a light stroke 3 months ago and that he came in because of bad stomach pain beginning 2 days ago. He reports that the pain comes and goes and that it was both all across the abdomen as well as his chest. It was at this point that he also commented about having 10 stents placed. He was unable to describe the character of his pain but said that the severity of his pain when he arrived was a 7-8 out of 10. During the review of systems, patient endorsed cough and chest pain but expressed that he was unable to clearly think and thought it would be best if we asked his when she arrived on what had transpired to cause his hospitalization. Notable labs today include: Hgb 11.7, PT 16.2, INR 1.5, Na 126, K 5.0 (then 5.4), chloride 89, calculated osmolality 256, lactic acid drop to 2.3 from 3.4, corrected calcium 10.0 (then 10.5), magnesium 1.0, AST 122, ALT 129, and alkaline phosphatase 162. Cardiology (Dr. Castellano) has been consulted; he agreed with using diuretics to treat patient as this moment in time. Exam Vital Signs Temp Pulse Resp BP Pulse Ox O2 Del Method 97.1 F 66 18 140/78 H 96 Room Air 12/04/24 12:00 12/04/24 14:34 12/04/24 12:00 12/04/24 12:00 12/04/24 12:00 12/04/24 12:00 Narrative Exam General: Cachectic, elderly male, alert, slightly lethargic, no acute distress. Skin: Warm, dry, intact, no obvious rash. Head: Normocephalic, atraumatic. Eye: Normal conjunctiva. Throat: Oral mucosa moist. Cardiovascular: 3+ pitting edema bilaterally. Faint dorsalis pedis and posterior tibial pulses. Regular rate and rhythm, no murmur. Respiratory: Decreased breath sounds bilaterally. Respirations non labored, no crackles, no wheezing. Gastrointestinal: Generalized abdominal tenderness to palpation. Soft, non- distended. Psychiatric: Cooperative, appropriate affect. Neuro: Mental status: Alert, oriented, appropriately responding to commands. Speech/Language: Speech fluent, no word finding difficulty or paraphasic errors observed. Language-comprehension, repetition and naming intact. Memory: Unable to recall events resulting in hospitalization nor other facts regarding his person. Cranial Nerves: II: No visual deficits and visual brown full to confrontation. Pupils 3-5 mm size BL round. III, IV, : EOMI, no nystagmus, no ptosis, no APD, smooth pursuit without saccadic intrusion, conjugate horizontal gaze intact. VII: No facial asymmetry, able to smile symmetrically and BL good eye closure. Motor examination 5/5 strength in bilateral upper extremity Objective Labs 12/05/24 07:44 12/05/24 07:44 Labs: Laboratory Results - last 24 hr 12/03/24 12/03/24 12/03/24 19:00 20:30 23:06 WBC 10.4 RBC 5.05 Hgb 13.1 L Hct 40.4 L MCV 80 MCH 25.9 MCHC 32.4 RDW Std Deviation 46.9 H Plt Count 230 D Neut % (Auto) 83 H Lymph % (Auto) 8 L [place] % (Auto) 7 Eos % (Auto) 1 Baso % (Auto) 0 Neut # (Auto) 8.7 H Lymph # (Auto) 0.9 L [place] # (Auto) 0.7 Eos # (Auto) 0.1 Baso # (Auto) 0.0 Immature Gran # (Auto) 0.08 H Absolute Nucleated RBC 0.00 Immature Gran % 1 H Neutrophils % (Manual) Not Performed. Nucleated RBC % 0 Lymphocytes (Manual) Not Performed. Acanthocytes (Spur) 2+ A PT INR Sodium 123 L 125 L Potassium 6.4 H* 5.1 D Chloride 90 L 90 L Carbon Dioxide 20.3 22.0 Anion Gap 13 13 BUN 12 14 Creatinine 1.0 1.0 Estim Creat Clear Calc 55.1 L 55.1 L eGFR > 60 > 60 BUN/Creatinine Ratio 12 14 Glucose 128 H 99 Calculated Osmolality 249 L 252 L Lactic Acid 3.2 H 3.4 H Calcium 9.7 10.4 Corrected Calcium 9.7 10.4 H Phosphorus Magnesium Total Bilirubin 0.8 1.0 AST 26 32 ALT 13 25 Alkaline Phosphatase 164 H 180 H Troponin I < 0.020 B-Natriuretic Peptide 1756 H* Total Protein 6.6 7.1 Albumin 4.4 4.7 Globulin 2.2 L 2.4 Albumin/Globulin Ratio 2.0 2.0 Lipase 30 Ur Collection Type Voided Urine Color Yellow Urine Clarity Turbid A Urine pH 6.5 Ur Specific [place] 1.020 Urine Protein 1+ A Urine Glucose (UA) Negative Urine Ketones 1+ A Urine Blood Trace Urine Nitrite Negative Urine Bilirubin Negative Urine Urobilinogen (Auto) 4.0 Ur Leukocyte Esterase Negative Urine RBC 4 H Urine WBC 0 Ur Squamous Epith Cells 22 H Urine Bacteria Rare Ur Culture Indicated? Not Indicated Hepatitis A IgM Ab Hep Bs Antigen Hep B Core IgM Ab Hepatitis C Antibody 12/04/24 12/04/24 12/04/24 04:05 06:10 10:49 WBC 11.0 H RBC 4.38 L Hgb 11.7 L Hct 34.9 L MCV 80 MCH 26.7 MCHC 33.5 RDW Std Deviation 46.5 H Plt Count 207 Neut % (Auto) 87 H Lymph % (Auto) 5 L [place] % (Auto) 7 Eos % (Auto) 0 Baso % (Auto) 0 Neut # (Auto) 9.6 H Lymph # (Auto) 0.6 L [place] # (Auto) 0.8 Eos # (Auto) 0.0 Baso # (Auto) 0.0 Immature Gran # (Auto) 0.06 H Absolute Nucleated RBC 0.00 Immature Gran % 1 H Neutrophils % (Manual) Nucleated RBC % 0 Lymphocytes (Manual) Acanthocytes (Spur) PT 16.2 H INR 1.5 H Sodium 129 L 126 L 124 L Potassium 4.3 D 5.0 D Chloride 89 L Carbon Dioxide 22.7 Anion Gap 14 BUN 18 Creatinine 1.0 Estim Creat Clear Calc 55.1 L eGFR > 60 BUN/Creatinine Ratio 18 Glucose 116 H Calculated Osmolality 256 L Lactic Acid 2.3 H 3.5 H Calcium 10.0 Corrected Calcium 10.0 Phosphorus 3.7 Magnesium 1.0 L Total Bilirubin 1.2 AST 122 H ALT 129 H Alkaline Phosphatase 162 H Troponin I B-Natriuretic Peptide Total Protein 6.2 Albumin 4.2 D Globulin 2.0 L Albumin/Globulin Ratio 2.1 Lipase Ur Collection Type Urine Color Urine Clarity Urine pH Ur Specific [place] Urine Protein Urine Glucose (UA) Urine Ketones Urine Blood Urine Nitrite Urine Bilirubin Urine Urobilinogen (Auto) Ur Leukocyte Esterase Urine RBC Urine WBC Ur Squamous Epith Cells Urine Bacteria Ur Culture Indicated? Hepatitis A IgM Ab Non Reactive Hep Bs Antigen Non Reactive Hep B Core IgM Ab Non Reactive Hepatitis C Antibody Non Reactive 12/04/24 11:58 WBC RBC Hgb Hct MCV MCH MCHC RDW Std Deviation Plt Count Neut % (Auto) Lymph % (Auto) [place] % (Auto) Eos % (Auto) Baso % (Auto) Neut # (Auto) Lymph # (Auto) [place] # (Auto) Eos # (Auto) Baso # (Auto) Immature Gran # (Auto) Absolute Nucleated RBC Immature Gran % Neutrophils % (Manual) Nucleated RBC % Lymphocytes (Manual) Acanthocytes (Spur) PT INR Sodium 125 L Potassium 5.4 H Chloride 88 L Carbon Dioxide 23.2 Anion Gap 14 BUN 18 Creatinine 1.0 Estim Creat Clear Calc 55.1 L eGFR > 60 BUN/Creatinine Ratio 18 Glucose 158 H Calculated Osmolality 256 L Lactic Acid Calcium 10.5 Corrected Calcium 10.5 H Phosphorus 4.4 Magnesium 1.9 Total Bilirubin AST ALT Alkaline Phosphatase Troponin I B-Natriuretic Peptide Total Protein Albumin 4.6 Globulin Albumin/Globulin Ratio Lipase Ur Collection Type Urine Color Urine Clarity Urine pH Ur Specific [place] Urine Protein Urine Glucose (UA) Urine Ketones Urine Blood Urine Nitrite Urine Bilirubin Urine Urobilinogen (Auto) Ur Leukocyte Esterase Urine RBC Urine WBC Ur Squamous Epith Cells Urine Bacteria Ur Culture Indicated? Hepatitis A IgM Ab Hep Bs Antigen Hep B Core IgM Ab Hepatitis C Antibody Quality Measures Quality Measures VTE prophylaxis Advance care planning discussed with:: patient Assessment & Plan Assessment Current Active Medications: Generic Name Dose Route Start Last Admin Trade Name Freq PRN Reason Stop Dose Admin Acetaminophen 650 mg 12/03/24 23:38 Acetaminophen 325 Mg Tablet PO 01/02/25 23:37 Q6H PRN Fever >100.4 Acetaminophen 650 mg 12/03/24 23:38 Acetaminophen 325 Mg Tablet PO 01/02/25 23:37 Q6H PRN PAIN SCALE 1-3 (mild Hydrocodone Bitart/Acetaminophen 1 tab 12/03/24 23:38 12/04/24 02:29 Hydrocodone/Apap 5/325 Tablet PO 12/08/24 23:37 1 tab Q4HR PRN Administration PAIN SCALE 4-10(Mod-Sev Heparin Sodium (Porcine) 5,000 unit 12/04/24 09:00 12/04/24 08:23 Heparin Sod Inj 5000 Unit/Ml Vial SC 12/18/24 08:59 5,000 unit Q12HR MARGIE Administration Magnesium Sulfate 4 gm in 50 mls @ 12.5 mls/hr 12/04/24 13:00 12/04/24 12:20 Magnesium Sulfate Ivpb IV 12/04/24 16:59 12.5 mls/hr X1 ONE Administration Megestrol Acetate 40 mg 12/04/24 09:00 12/04/24 08:24 Megestrol Acet 20 Mg Tablet PO 01/03/25 08:59 40 mg QDAY MARGIE Administration Nitroglycerin 0.4 mg 12/04/24 03:50 Nitroglycerin 0.4 Mg Subl Btl #25 SL Q5MIN PRN CHEST PAIN Ondansetron HCl 4 mg 12/03/24 23:38 Ondansetron Inj 2 Mg/Ml Inj 2 Ml IVP 01/02/25 23:37 Q6H PRN NAUSEA OR VOMITING Protocol Pantoprazole Sodium 40 mg 12/04/24 09:00 12/04/24 08:24 Pantoprazole Inj 40 Mg Vial IVP 01/03/25 08:59 40 mg QDAY MARGIE Administration Sennosides 1 tab 12/03/24 23:38 Senna Tablet PO 01/02/25 23:37 QDAY PRN constipation Protocol Spironolactone 25 mg 12/04/24 13:45 12/04/24 14:02 Spironolactone 25 Mg Tablet PO 01/03/25 13:44 Not Given BID MARGIE Plan Hubert Nelson is an 84-year-old male with a past medical history of coronary artery disease s/p CABG and multiple stents, ischemic cardiomyopathy with AICD (placed September 2024), hypertension, hyperlipidemia, type 2 diabetes mellitus, and prior pneumonia, who presents with 3 days of abdominal and chest pain. Patient was admitted for the work-up and management of acute decompensated heart failure (EF approximately 30%), hypervolemic hyponatremia, and hyperkalemia. #Hypervolemic hyponatremia #Cirrhosis with mild ascites Admission Na 123 Despite, patient's high BP, pitting edema, bilateral pleural effusions, and pulmonary edema, patient is likely experiencing intravascular depletion and 3rd spacing with decreased total body water and greater decrease in sodium level (in the setting of cirrhosis) CT abdomen shows cirrhosis and mild ascites Patient was recently hospitalized on 10/30/24 for acute hyponatremia as well Treatment Plan -Sodium levels q2HR -Fluid restriction of 1200 mL #Acute decompensation of systolic HFrEF (EF approximately 30%) #Pleural effusion, bilateral #Lactic acidosis NYHA severity classification: IV Patient endorsed shortness of breath and chest pain, onset over the past 2-3 weeks, that is present even at rest Patient has history of systolic HFrEF, last EF 30-35% measured in 04/09 PMH of ischemic cardiomyopathy, s/p CABG and AICD BNP of 1756, troponin (-) CXR showed [id number] CHF with enlargement of the cardiac contour, pulmonary vascular congestion, and perihilar basilar edema CTAP showed heart failure pattern with pulmonary edema and [id number] bilateral pleural effusions Upon admission, lactic acid 3.2 Diagnostic Inquiry 1. EKG (already obtained 12/03/24, showed rate-controlled atrial fibrillation per Cardiology read) 2. CBC and CMP 3. Consider echocardiogram to assess current EF 4. Cardiology consulted, awaiting recommendations in regards to optimization of CHF pharmacotherapy regimen Treatment Plan -Maintain SpO2 above 90% and ventilation 1. Continuous pulse oximetry 2. Supplemental oxygen 3. Consider elevation of the head of patient's bed to semi-Peters's position (between 30 and 45 degrees) to allow gravity to shift excess fluid downwards and away from the lungs -Correct hemodynamic and intravascular volume derangements 2/2 acute HF decompensation 1. Add Aldactone. 2. Continuous blood pressure and cardiac monitoring 3. Strict I&O + daily weights to monitor volume status 4. Fluid restriction of 1200 mL #Atrial fibrillation Extensive history of coronary artery disease s/p CABG and multiple stents, AICD Per Cardiology read, EKG showed rate-controlled atrial fibrillation Troponin (-) Treatment Plan -Cardiology consulted, awaiting recommendations in regards to management of atrial fibrillation #Hyperkalemia Admission K 6.4, treated with calcium, insulin, and D50 in ED New-onset atrial fibrillation today Treatment Plan -Telemetry monitoring -Consider Lokelma if K remains > 5.5 -Avoid ACEi/ARB/K-sparing diuretics for now #??Cholecystitis CT shows gallbladder wall thickening and rectal wall thickening Patient reports vague abdominal discomfort but has remained afebrile without leukocytosis or N/V/D Treatment Plan -Continue to monitor for fever, abdominal pain, or leukocytosis #CAD s/p CABG & AICD Longstanding severe CAD, s/p CABG and stents, AICD placed September 2024 Troponin (-), chest pain likely demand-related vs from decompensated CHF No evidence of acute ischemia Treatment Plan -SL nitroglycerin 0.4 mg prn q5MIN for chest pain -PO [place] 5/325 prn q4HR for pain #[id number] T2DM Admission blood glucose 128, A1c previously 5.7% Treatment Plan -Hold patient's home medication: PO metformin 850 mg TID -Insulin sliding scale #Malnutrition / cachexia Patient has apparently had a 30 lb weight loss over the last year with poor appetite and is wheelchair dependent Treatment Plan -Continue Megace if tolerated -PT for mobility and strengthening Hospital Management: Disposition: undergoing work-up and management of hypervolemic hyponatremia, acute decompensated heart failure (EF approximately 30%), and hyperkalemia Diet: Dysphagia 3 - Advanced GI Prophylaxis: IV Protonix Bowel Prophylaxis: Senna DVT Prophylaxis: Heparin CODE STATUS: DNR/DNI I have examined the patient and conferred with my attending, Dr. Huddleston, regarding them. Perry Mitchell, DO PGY-1 Internal Medicine Attending Provider Attestation/Addendum Patient seen and examined with resident physician Dr. Mitchell. Note reviewed, agree with findings and recommendations. Patient admitted with atypical chest pain and hyponatremia. Clinically patient looks rather hypervolemic. CT scanning abdomen showed liver cirrhosis with a bilateral pleural effusions. Patient received 1 L of fluids. However he has 2+ edema. Decided to hold off on Lasix/loop diuretics which can further worsen the hyponatremia. Added fluid restriction, spironolactone. Did explain to the that hyponatremia in the setting of congestive heart failure portends poor prognosis. Echocardiogram ordered. Will follow serum sodium closely. Had a long conversation with Ray at bedside. Made him DNR DNI. Requested for him to go to rehab
--- NOTE | 2024-12-04 16:16 | PC.NURSE ---
Spoke to patient regarding med rec. He stated he would call to remind her to bring list of meds tonight.
[2024-12-04 18:17] LABS: Sodium 125 mMol/L (136-145)
[2024-12-04 20:12] LABS: Sodium 124 mMol/L (136-145)
[2024-12-04] MEDS: SODIUM CHLORIDE 1 GM TABLET PO (20:52)
[2024-12-04 20:54] LABS: Uric Acid 8.0 mg/dL (3.7-9.2)
[2024-12-04] MEDS: TEMAZEPAM 15 MG CAPSULE PO (21:30)
[2024-12-05] VITALS (8 sets, daily range): BP systolic 112–134; BP diastolic 63–94; PULSE 60–87; RESP 16–94; TEMP 36.1–36.7; O2SAT 92–95; BMI 11.0
[2024-12-05 01:27] LABS: Sodium 124 mMol/L (136-145)
[2024-12-05] MEDS: HYDROcodone/APAP 5/325 TABLET 1 TAB PO (06:40)
[2024-12-05 07:06] LABS: Sodium,Urine Random 21.4 mMol/L (20.0-110.0)
[2024-12-05 08:09] LABS: Basophils # (Auto) 0.0 Thou/mm3 (0.0-0.2); Basophils % (Auto) 0 % (0-2.5); Eosinophils # (Auto) 0.0 Thou/mm3 (0.0-0.5); Eosinophils % (Auto) 0 % (0-10); Hematocrit 34.2 % (41.0-53.0); Hemoglobin 11.5 g/dL (13.5-16.0); Immature Granulocytes Auto 0.09 Thou/mm3 (0.00-0.00); Lymphocytes # (Auto) 0.3 Thou/mm3 (1.0-4.8); Lymphocytes % (Auto) 2 % (10-50); Mean Corpuscular HGB Conc 33.6 g/dl (31.0-37.0); Mean Corpuscular Hemoglobin 26.3 pg (25.0-35.0); Mean Corpuscular Volume 78 fL (80-100); Monocytes # (Auto) 0.9 Thou/mm3 (0.0-0.8); Monocytes % (Auto) 6 % (0-12); Neutrophils # (Auto) 13.1 Thou/mm3 (1.8-7.7); Neutrophils % (Auto) 91 % (37-80); Nucleated Red Blood Cell # 0.00 Thou/mm3 (0.00-0.00); Nucleated Red Blood Cell % 0 /100 WBC (0); Platelet Count 165 Thou/mm3 (140-440); RDW Standard Deviation 45.3 fL (35.1-43.9); Red Blood Count 4.38 Miln/mm3 (4.50-5.90); White Blood Count 14.4 Thou/mm3 (3.8-10.6)
--- NOTE | 2024-12-05 08:20 | PC.NURSE ---
Rounded with Dr. Meraz at 0815. Dr wants to order another CXR, is going to put an order for a swallow eval, and wants HOB to be at 45 degree angle especially when eating. Patient was asleep during dr visit and only opened his eyes when his name was called. Doctor said to continue with salt pills.
[2024-12-05 08:29] LABS: INR 1.7 (0.9-1.3); Prothrombin Time 17.7 Seconds (9.0-12.2)
[2024-12-05] MEDS: HEPARIN SOD INJ 5000 UNIT/ML VIAL SC ×2 (08:37→21:20)
[2024-12-05] MEDS: MEGESTROL ACET 20 MG TABLET 40 MG PO (08:39)
--- NOTE | 2024-12-05 08:45 | XR_ITS ---
Examination: AP chest single view TECHNIQUE: Portable semiupright chest single view Date and time: December 05, 2024 0917 hours INDICATIONS: Chest pain today COMPARISON: December 03, 2024 FINDINGS: Moderate CHF Mild to moderate enlargement cardiac contour, prominent vascular congestion with perihilar basilar edema Consider superimposed pneumonia at the right lung base CABG Cardiac leads stable position IMPRESSION: Moderate CHF Consider superimposed pneumonia right base, differential would include aspiration pneumonia
[2024-12-05 08:46] LABS: Alanine Aminotransferase 1109 U/L (10-49); Albumin, Serum 4.0 gm/dL (3.4-4.8); Albumin/Globulin Ratio 1.9 (1.2-2.2); Alkaline Phosphatase 176 U/L (46-116); Anion Gap 12 (7-16); Aspartate Amino Transferase 950 U/L (0-34); BUN/Creatinine Ratio 20 Ratio (12-20); Bilirubin,Total 1.5 mg/dL (0.3-1.2); Blood Urea Nitrogen 20 mg/dL (9-23); Calcium 9.9 mg/dL (8.3-10.6); Calcium (Corrected) 9.9 mg/dL (8.5-10.1); Carbon Dioxide 24.7 mMol/L (20.0-31.0); Chloride 88 mMol/L (98-107); Creatinine (Component) 1.0 mg/dL (0.6-1.3); Estimated Creatinine Clearance 55.1 mL/min (>60); Globulin 2.1 gm/dL (2.3-3.5); Glucose 124 mg/dL (74-106); Magnesium 1.9 mg/dL (1.6-2.6); Osmolality,Calculated 255 (275-295); Phosphorous 4.5 mg/dL (2.4-5.1); Potassium 4.5 mMol/L (3.4-5.1); Sodium 125 mMol/L (136-145); Total Protein 6.1 gm/dL (5.7-8.2); eGFR > 60 See Note
[2024-12-05] MEDS: SODIUM CHLORIDE 1 GM TABLET PO ×2 (08:58→21:19)
--- NOTE | 2024-12-05 12:52 | ESPR_ITS ---
Documentation for date of: 12/05/24 Subjective Subjective Interval history: Hubert Nelson is an 84-year-old male with a past medical history of coronary artery disease s/p CABG and multiple stents, ischemic cardiomyopathy with AICD (placed September 2024), hypertension, hyperlipidemia, type 2 diabetes mellitus, and prior pneumonia, who presents with 3 days of abdominal and chest pain. Of note, patient was recently hospitalized on 10/30/24 for acute hyponatremia. Patient describes chest discomfort as constant across the chest, present even at rest, associated with progressive shortness of breath over the past 2?3 weeks. He notes difficulty breathing worsened in the past 1?2 days. He denies exertional triggers, cough, fevers, chills, or lower extremity edema. Abdominal discomfort is generalized more so on the right side, non-radiating, associated with poor appetite, but without nausea, vomiting, diarrhea, constipation, or hematochezia. He denies urinary symptoms, hematuria, or dysuria. His reports poor oral intake and worsening fatigue. No recent falls, trauma, or ICD shocks. Patient was found in the ED to have hyponatremia (Na 123), hyperkalemia (K 6.4), elevated BNP (1756), lactic acid 3.2, and CT abdomen/pelvis notable for CHF pattern with pulmonary edema, bilateral pleural effusions, cirrhosis with mild ascites, gallbladder wall thickening, and rectal wall thickening. Troponin was negative. LFTs normal. He was given 80 mg PO furosemide, Ca gluconate, insulin/D50 in the ED. Patient was admitted for the work-up and management of acute decompensated heart failure (EF approximately 30%), hypervolemic hyponatremia, and hyperkalemia. Interval History 12/04/2024: No overnight events. Patient seen and examined at bedside. When asked what brought him to the hospital, patient began his reply with the remark that he had a light stroke 3 months ago and that he came in because of bad stomach pain beginning 2 days ago. He reports that the pain comes and goes and that it was both all across the abdomen as well as his chest. It was at this point that he also commented about having 10 stents placed. He was unable to describe the character of his pain but said that the severity of his pain when he arrived was a 7-8 out of 10. During the review of systems, patient endorsed cough and chest pain but expressed that he was unable to clearly think and thought it would be best if we asked his when she arrived on what had transpired to cause his hospitalization. Notable labs today include: Hgb 11.7, PT 16.2, INR 1.5, Na 126, K 5.0 (then 5.4), chloride 89, calculated osmolality 256, lactic acid drop to 2.3 from 3.4, corrected calcium 10.0 (then 10.5), magnesium 1.0, AST 122, ALT 129, and alkaline phosphatase 162. Cardiology (Dr. Castellano) has been consulted; he agreed with using diuretics to treat patient as this moment in time. 12/05/2024 patient currently seen in medical floor. Resting comfortably. He seems to have worsening dementia. Sodium still low at 124. Cannot give more fluids as clinically he looks to be rather hypervolemic. Started him on low- dose Aldactone. Blood pressure 115/63, heart rate 60. WBC 14.4, hemoglobin 11.5, platelets 165. INR 1.7. Sodium 125, potassium 4.5, creatinine 1, uric acid 8, glucose 124, AST 950, ALT 04/18/2008, alk phos 176, albumin 4 urine sodium 21 chest x-ray today showed right-sided aspiration pneumonia. Swallow study ordered for today. Patient seems to have gurgling. Review of Systems Review of Systems Narrative Review of Systems: Review of systems limited due to his mentation. Seems to have significant functional decline, failure to thrive and weakness. Exam Vital Signs Temp Pulse Resp BP Pulse Ox O2 Del Method 36.1 C 63 18 115/66 92 L Room Air 12/05/24 08:00 12/05/24 08:00 12/05/24 08:00 12/05/24 08:00 12/05/24 08:00 12/05/24 08:00 Narrative Exam General: Cachectic, elderly male, alert, slightly lethargic, no acute distress. Lost weight Skin: Warm, dry, intact, no obvious rash. Head: Normocephalic, atraumatic. Eye: Normal conjunctiva. Throat: Oral mucosa moist. Cardiovascular: 2+ pitting edema bilaterally. Faint dorsalis pedis and posterior tibial pulses. Regular rate and rhythm, no murmur. Respiratory: Decreased breath sounds bilaterally. Respirations non labored, no crackles, no wheezing. Gastrointestinal: Generalized abdominal tenderness to palpation. Soft, non- distended. Psychiatric: Cooperative, appropriate affect. Neurologically-opens his eyes. Objective Labs 12/05/24 07:44 12/05/24 07:44 Labs: Laboratory Results - last 24 hr 12/04/24 12/04/24 12/04/24 10:49 11:58 15:07 WBC RBC Hgb Hct MCV MCH MCHC RDW Std Deviation Plt Count Neut % (Auto) Lymph % (Auto) [place] % (Auto) Eos % (Auto) Baso % (Auto) Neut # (Auto) Lymph # (Auto) [place] # (Auto) Eos # (Auto) Baso # (Auto) Immature Gran # (Auto) Absolute Nucleated RBC Immature Gran % Nucleated RBC % PT INR Sodium 124 L 125 L Cancelled Potassium 5.4 H Chloride 88 L Carbon Dioxide 23.2 Anion Gap 14 BUN 18 Creatinine 1.0 Estim Creat Clear Calc 55.1 L eGFR > 60 BUN/Creatinine Ratio 18 Glucose 158 H Calculated Osmolality 256 L Lactic Acid 3.5 H Uric Acid Calcium 10.5 Corrected Calcium 10.5 H Phosphorus 4.4 Magnesium 1.9 Total Bilirubin AST ALT Alkaline Phosphatase Total Protein Albumin 4.6 Globulin Albumin/Globulin Ratio Ur Random Sodium 12/04/24 12/04/24 12/05/24 17:42 19:39 00:48 WBC RBC Hgb Hct MCV MCH MCHC RDW Std Deviation Plt Count Neut % (Auto) Lymph % (Auto) [place] % (Auto) Eos % (Auto) Baso % (Auto) Neut # (Auto) Lymph # (Auto) [place] # (Auto) Eos # (Auto) Baso # (Auto) Immature Gran # (Auto) Absolute Nucleated RBC Immature Gran % Nucleated RBC % PT INR Sodium 125 L 124 L 124 L Potassium Chloride Carbon Dioxide Anion Gap BUN Creatinine Estim Creat Clear Calc eGFR BUN/Creatinine Ratio Glucose Calculated Osmolality Lactic Acid Uric Acid 8.0 Calcium Corrected Calcium Phosphorus Magnesium Total Bilirubin AST ALT Alkaline Phosphatase Total Protein Albumin Globulin Albumin/Globulin Ratio Ur Random Sodium 12/05/24 12/05/24 06:35 07:44 WBC 14.4 H RBC 4.38 L Hgb 11.5 L Hct 34.2 L MCV 78 L MCH 26.3 MCHC 33.6 RDW Std Deviation 45.3 H Plt Count 165 D Neut % (Auto) 91 H Lymph % (Auto) 2 L [place] % (Auto) 6 Eos % (Auto) 0 Baso % (Auto) 0 Neut # (Auto) 13.1 H Lymph # (Auto) 0.3 L [place] # (Auto) 0.9 H Eos # (Auto) 0.0 Baso # (Auto) 0.0 Immature Gran # (Auto) 0.09 H Absolute Nucleated RBC 0.00 Immature Gran % 1 H Nucleated RBC % 0 PT 17.7 H INR 1.7 H Sodium 125 L Potassium 4.5 D Chloride 88 L Carbon Dioxide 24.7 Anion Gap 12 BUN 20 Creatinine 1.0 Estim Creat Clear Calc 55.1 L eGFR > 60 BUN/Creatinine Ratio 20 Glucose 124 H Calculated Osmolality 255 L Lactic Acid Uric Acid Calcium 9.9 Corrected Calcium 9.9 Phosphorus 4.5 Magnesium 1.9 Total Bilirubin 1.5 H AST 950 H* ALT 1109 H* Alkaline Phosphatase 176 H Total Protein 6.1 Albumin 4.0 D Globulin 2.1 L Albumin/Globulin Ratio 1.9 Ur Random Sodium 21.4 Assessment & Plan Assessment and plan (1) CHF (congestive heart failure): Status: Acute Assessment and plan: Patient seems to be in CHF exacerbation. (2) Ascites: Status: Acute Assessment and plan: Ascites from underlying liver cirrhosis and CHF (3) Acute hyperkalemia: Status: Acute Assessment and plan: Improved with medications. (4) Acute hyponatremia: Status: Acute Assessment and plan: Clinically patient looks rather hypervolemic. Salt tablets given. Overall his prognosis remains poor. Will discuss with family regarding comfort care. He has significant functional decline, failure to thrive (5) Atrial flutter: Status: Acute Assessment and plan: Under the care of cardiology (6) S/P CABG x 4: Status: Acute (7) CAD (coronary artery disease): Status: Acute Assessment and plan: Came with atypical chest pain. (8) Elevated LFTs: Status: Acute Assessment and plan: Significant elevation in LFTs noted. Suspect ischemic hepatitis from underlying passive liver congestion and hypotension (9) Coagulopathy: Status: Acute Assessment and plan: Coagulopathy--from liver failure (10) Aspiration pneumonia: Status: Acute Assessment and plan: Add Zosyn/n.p.o. except meds. Swallow eval Additional Assessment & Plan Additional Plan: DVT prophylaxis-auto anticoagulated, SCD GI prophylaxis Protonix CODE STATUS DNR/DNI Disposition to rehab vs home 1250pm== had a long conversation with Dang-- regarding his poor prognosis She requested DNR, DNI, comfort measures. No further blood draws. Wants to continue on antibiotics for now. She will meet with [facility] this afternoon and decide. Possible home with hospice either today or tomorrow. Quality - progress note Quality Measures Quality Measures: VTE prophylaxis Reason for Continued Stay Reason for Continued Stay: further monitoring
[2024-12-05] MEDS: PIPER/TAZO 3.375 GM PREMIX 3.375 GM/50 ML BAG IV (14:16)
--- NOTE | 2024-12-05 16:04 | PC.SS ---
SS met with pt and spoke to by phone regarding his d/c plan. is requesting pt d/c home with [facility]. SS provided verbal choices for hospice agencies and is aware there are other hospice agencies. 's choice is [facility]. states pt has wheelchair, walker, and commode at home. is requesting a hospital bed and to be delivered tomorrow. SS has contacted Natividad Woo from [facility] who states she will contact . Natividad is aware is requesting hospital bed. SS has faxed and sent inquiry for hospice services to [facility] using [facility]. is aware Community Resource List has been placed in patient's room which contains hospice agencies contact numbers. Bedside nurse, Sabiha is aware.
[2024-12-05] MEDS: ONDANSETRON INJ 2 MG/ML INJ 2 ML 4 MG IVP (16:48)
[2024-12-05] MEDS: PIPER/TAZO 2.25 GM 2.25 GM/50 ML BAG IV (18:06)
--- NOTE | 2024-12-05 21:00 | PC.NURSE ---
spoke to dr stallworth regarding patient requesting temazepam to help him sleep dr rincon to order temazepam 15mg QHS PRN
[2024-12-05] MEDS: TEMAZEPAM 15 MG CAPSULE PO (21:19)
[2024-12-06] VITALS (9 sets, daily range): BP systolic 108–134; BP diastolic 65–76; PULSE 62–85; RESP 16–95; TEMP 36.2–36.4; O2SAT 95–100
[2024-12-06] MEDS: PIPER/TAZO 2.25 GM 2.25 GM/50 ML BAG IV ×4 (00:13→17:52)
--- NOTE | 2024-12-06 07:42 | ESPR_ITS ---
Documentation for date of: 12/06/24 Subjective Subjective Interval history: Patient appears comfortable Baseline rhythm atrial fibrillation Rate controlled currently heart rate 71 Exam Vital Signs Temp Pulse Resp BP Pulse Ox O2 Del Method O2 Flow Rate 97.6 F 71 16 125/73 99 Nasal Cannula 2 12/06/24 04:00 12/06/24 04:00 12/06/24 04:00 12/06/24 04:00 12/06/24 04:00 12/06/24 04:00 12/06/24 04:00 Routine HEENT Exam Head: Present normocephalic and atraumatic Eye: Present EOMI and PERRL ENT: Present mucous membranes moist Routine Neck Exam Neck: Present supple and trachea midline Routine Respiratory Exam Respiratory: Present chest non-tender, lungs clear, normal breath sounds and no resp distress Routine Cardiovascular Exam Cardiovascular: Present RRR Routine Abdominal Exam Abdominal: Present soft and normoactive bowel sounds Routine Extremities Exam Extremities: Present full ROM Routine Skin Exam Skin: Present intact, dry and warm Routine Neurological Exam Neurological: Present alert, oriented X3 and CN II-XII intact Routine Psychiatric Exam Psychiatric: Present normal affect and normal thought process Objective Labs 12/05/24 07:44 12/05/24 07:44 Labs: Laboratory Results - last 24 hr 12/05/24 07:44 WBC 14.4 H RBC 4.38 L Hgb 11.5 L Hct 34.2 L MCV 78 L MCH 26.3 MCHC 33.6 RDW Std Deviation 45.3 H Plt Count 165 D Neut % (Auto) 91 H Lymph % (Auto) 2 L [place] % (Auto) 6 Eos % (Auto) 0 Baso % (Auto) 0 Neut # (Auto) 13.1 H Lymph # (Auto) 0.3 L [place] # (Auto) 0.9 H Eos # (Auto) 0.0 Baso # (Auto) 0.0 Immature Gran # (Auto) 0.09 H Absolute Nucleated RBC 0.00 Immature Gran % 1 H Nucleated RBC % 0 PT 17.7 H INR 1.7 H Sodium 125 L Potassium 4.5 D Chloride 88 L Carbon Dioxide 24.7 Anion Gap 12 BUN 20 Creatinine 1.0 Estim Creat Clear Calc 55.1 L eGFR > 60 BUN/Creatinine Ratio 20 Glucose 124 H Calculated Osmolality 255 L Calcium 9.9 Corrected Calcium 9.9 Phosphorus 4.5 Magnesium 1.9 Total Bilirubin 1.5 H AST 950 H* ALT 1109 H* Alkaline Phosphatase 176 H Total Protein 6.1 Albumin 4.0 D Globulin 2.1 L Albumin/Globulin Ratio 1.9 Assessment & Plan A&P Narrative Optimize heart failure medications as patient blood pressure tolerates Time Spent With Patient Time: Total time spent is greater than 50% in coordination of care (as documented) at patient's floor/unit and/or counseling patient:
[2024-12-06] MEDS: HEPARIN SOD INJ 5000 UNIT/ML VIAL SC (08:19)
[2024-12-06] MEDS: SODIUM CHLORIDE 1 GM TABLET PO (08:20)
[2024-12-06] MEDS: MEGESTROL ACET 20 MG TABLET 40 MG PO (08:20)
--- NOTE | 2024-12-06 10:20 | PC.SS ---
Follow up note: SS spoke to Natividad @ [facility] who confirmed they arranged for all DME to be delivered today. Patient to be discharged home today with [facility]. [facility] has all documentation and orders. Patient will need transport set up once we have orders in place.
--- NOTE | 2024-12-06 14:00 | PD.NEPHDC ---
Planned Discharge Date 12/06/24 DS: Providers Provider Date of admission: 12/03/24 23:39 Primary care physician: Kevin Huddleston MD Admitting Provider: Antwan Phillips MD Attending Provider on Admission: Antwan Phillips MD Consults: 12/03/24 23:50 Consult to Cardiology Routine Comment: Consulting Provider: Carlton Castellano 12/04/24 03:51 Referral Registered Dietitian Routine Comment: 12/04/24 05:18 Referral Physical Therapy Routine Comment: Physician Instructions: Referral Respiratory Therapy Routine Comment: 12/05/24 08:00 Referral Discharge Planning Stat Comment: Sophie Johnson 12/05/24 08:47 Referral Speech Therapy Routine Comment: 12/05/24 12:47 Referral Hospice Stat Comment: [facility] Attending Provider on DC: Kevin Huddleston MD Discharging Provider: Kevin Huddleston MD Discharge Diagnosis Discharge Diagnosis (1) CHF (congestive heart failure): Status: Acute Assessment & Plan: stable (2) Ascites: Status: Acute Assessment & Plan: Secondary to cirrhosis (3) Acute hyperkalemia: Status: Acute Assessment & Plan: Resolved (4) Acute hyponatremia: Status: Acute Assessment & Plan: Hypervolemic hyponatremia-added salt tablets, diuretics (5) Atrial flutter: Status: Acute Assessment & Plan: Under cardiology (6) S/P CABG x 4: Status: Acute Assessment & Plan: Asymptomatic (7) CAD (coronary artery disease): Status: Acute (8) Elevated LFTs: Status: Acute Assessment & Plan: Secondary to ischemic hepatitis (9) Coagulopathy: Status: Acute Assessment & Plan: From liver failure (10) Aspiration pneumonia: Status: Acute Assessment & Plan: Will discharge him on p.o. antibiotics. Problem List Completed Was Problem List Reviewed/Reconciled?: Yes Hospital Course Hospital Course Hospital course: Hubert Nelson is an 84-year-old male with a past medical history of coronary artery disease s/p CABG and multiple stents, ischemic cardiomyopathy with AICD (placed September 2024), hypertension, hyperlipidemia, type 2 diabetes mellitus, and prior pneumonia, who presents with 3 days of abdominal and chest pain. Of note, patient was recently hospitalized on 10/30/24 for acute hyponatremia. Patient describes chest discomfort as constant across the chest, present even at rest, associated with progressive shortness of breath over the past 2?3 weeks. He notes difficulty breathing worsened in the past 1?2 days. He denies exertional triggers, cough, fevers, chills, or lower extremity edema. Abdominal discomfort is generalized more so on the right side, non-radiating, associated with poor appetite, but without nausea, vomiting, diarrhea, constipation, or hematochezia. He denies urinary symptoms, hematuria, or dysuria. His reports poor oral intake and worsening fatigue. No recent falls, trauma, or ICD shocks. Patient was found in the ED to have hyponatremia (Na 123), hyperkalemia (K 6.4), elevated BNP (1756), lactic acid 3.2, and CT abdomen/pelvis notable for CHF pattern with pulmonary edema, bilateral pleural effusions, cirrhosis with mild ascites, gallbladder wall thickening, and rectal wall thickening. Troponin was negative. LFTs normal. He was given 80 mg PO furosemide, Ca gluconate, insulin/D50 in the ED. Patient was admitted for the work-up and management of acute decompensated heart failure (EF approximately 30%), hypervolemic hyponatremia, and hyperkalemia. Interval History 12/04/2024: No overnight events. Patient seen and examined at bedside. When asked what brought him to the hospital, patient began his reply with the remark that he had a light stroke 3 months ago and that he came in because of bad stomach pain beginning 2 days ago. He reports that the pain comes and goes and that it was both all across the abdomen as well as his chest. It was at this point that he also commented about having 10 stents placed. He was unable to describe the character of his pain but said that the severity of his pain when he arrived was a 7-8 out of 10. During the review of systems, patient endorsed cough and chest pain but expressed that he was unable to clearly think and thought it would be best if we asked his when she arrived on what had transpired to cause his hospitalization. Notable labs today include: Hgb 11.7, PT 16.2, INR 1.5, Na 126, K 5.0 (then 5.4), chloride 89, calculated osmolality 256, lactic acid drop to 2.3 from 3.4, corrected calcium 10.0 (then 10.5), magnesium 1.0, AST 122, ALT 129, and alkaline phosphatase 162. Cardiology (Dr. Castellano) has been consulted; he agreed with using diuretics to treat patient as this moment in time. 12/05/2024 patient currently seen in medical floor. Resting comfortably. He seems to have worsening dementia. Sodium still low at 124. Cannot give more fluids as clinically he looks to be rather hypervolemic. Started him on low-dose Aldactone. Blood pressure 115/63, heart rate 60. WBC 14.4, hemoglobin 11.5, platelets 165. INR 1.7. Sodium 125, potassium 4.5, creatinine 1, uric acid 8, glucose 124, AST 950, ALT 04/18/2008, alk phos 176, albumin 4 urine sodium 21 chest x-ray today showed right-sided aspiration pneumonia. Swallow study ordered for today. Patient seems to have gurgling. 12/06/2024 spoke to Artis at bedside. Patient currently has congestive heart failure, coronary artery disease, ischemic hepatitis, coagulopathy, hyponatremia. Also has aspiration pneumonia. Lengthy discussion with the -she agreed for home hospice. Patient will be discharged home with hospice today. On p.o. antibiotics. Recommended to follow-up with me in cardiology as needed. Status at Discharge Cognitive/behavioral status at discharge: Patient has memory problems Functional status at discharge: wheelchair bound Overall status at discharge: patient is not back to baseline Time Spent with Patient Time attestation: Total time spent providing and/or coordinating discharge services:35min. Exam Vital Signs Temp Pulse Resp BP Pulse Ox O2 Del Method O2 Flow Rate 36.2 C 75 16 124/65 100 Nasal Cannula 2 12/06/24 12:12/06/24 12:26 12/06/24 12:12/06/24 12:12/06/24 12:12/06/24 12:12/06/24 12:00 Narrative Exam General: Cachectic, elderly male, alert, slightly lethargic, no acute distress. Lost weight Skin: Warm, dry, intact, no obvious rash. Head: Normocephalic, atraumatic. Eye: Normal conjunctiva. Throat: Oral mucosa moist. Cardiovascular: 2+ pitting edema bilaterally. Faint dorsalis pedis and posterior tibial pulses. Regular rate and rhythm, no murmur. Respiratory: Decreased breath sounds bilaterally. Respirations non labored, no crackles, no wheezing. Gastrointestinal: Soft, non-distended. Psychiatric: Cooperative, appropriate affect. Neurologically-opens his eyes. Discharge Plan Plan Patient Disposition: Home w/HOSPICE Patient condition on transfer: Stable Prescriptions/Referrals Prescriptions/Med Rec: New amoxicillin 500 mg tablet 500 mg PO BID Qty: 14 0RF Continued prasugrel HCl [Effient] 10 MG tablet 10 mg PO QDAY Qty: 0 temazepam 30 mg capsule 30 mg PO HS PRN (Reason: Insomnia) Patient Comments: TAKE 1 CAPSULE BY MOUTH ONCE DAILY NEEDED nitroglycerin 0.4 mg Tablet, Sublingual 0.4 mg BUCCAL PRN PRN (Reason: Chest Pain) metoprolol succinate 25 mg Tablet Extended Release 24 Hr 25 mg PO QDAY 30 Days Qty: 30 2RF atorvastatin 40 mg tablet 40 mg PO QPM magnesium oxide 500 mg capsule 500 mg PO DAILY oxybutynin chloride 5 mg tablet 5 mg PO DAILY cyanocobalamin (vitamin B-12) 2,500 mcg tablet 1,000 mcg PO QDAY carvedilol [Coreg] 3.125 mg tablet 3.125 mg PO DAILY Rx Instructions: must administer with a meal/food Discontinued aspirin 325 MG tablet 325 mg PO QDAY Qty: 0 metformin 850 mg tablet 850 mg PO BID Patient Comments: TAKE 1 TABLET BY MOUTH THREE TIMES DAILY Referrals: Kevin Huddleston MD [Primary Care Provider] - Patient/Caregiver Discharge Instructions Discharge Activity: activity as tolerated Print Language: Setswana Activity Restrictions/Additional Instructions: home hospice- f/u with me in 1-2 weeks Stand Alone Forms: [facility]nie Award Info., Patient Portal Info Letter Discharge Order Discharge Orders: Discharge (Routine); Ordered 12/06/24 Ordered By: Kevin Huddleston
--- NOTE | 2024-12-06 17:18 | PC.SS ---
Transport time moved back to 18:30. PROGRAM LEAD notified dehydration unit operator and [facility].
--- NOTE | 2024-12-06 19:00 | PC.NURSE ---
Report received from Sabiha BRYANT pt pending discharge only awaiting for transportation plan is 2029, discharge instructions given to by Sabiha BRYANT.
--- NOTE | 2024-12-06 19:40 | PC.NURSE ---
Transportation here to pickup driver pt IV 22g discontinued to left hand along with tele box, called and let know pt leaving
== END 2024-12-06 19:40 | disposition hospice, home (50) | DRG 640 ==
LOC: SERX 23:06 → SERHOLD 23:59 → S3NX 12-04 04:37
PROVIDERS: Physician Assistant Medical; Admitting Provider Student in an Organized Health Care Education/Training Program; Emergency Provider Emergency Medicine; PCP Internal Medicine; Visit Provider Student in an Organized Health Care Education/Training Program
DX: E87.1 Hypo-osmolality and hyponatremia (principal); I50.23 Acute on chronic systolic (congestive) heart failure; J69.0 Pneumonitis due to inhalation of food and vomit; K72.00 Acute and subacute hepatic failure without coma; R18.8 Other ascites; R64 Cachexia; E46 Unspecified protein-calorie malnutrition; I48.92 Unspecified atrial flutter; D68.9 Coagulation defect, unspecified; I11.0 Hypertensive heart disease with heart failure; E87.20 Acidosis, unspecified; Z95.1 Presence of aortocoronary bypass graft; I25.10 Atherosclerotic heart disease of native coronary artery without angina pectoris; E11.9 Type 2 diabetes mellitus without complications; I25.5 Ischemic cardiomyopathy; E87.5 Hyperkalemia; K74.60 Unspecified cirrhosis of liver; F03.A0 Unspecified dementia, mild, without behavioral disturbance, psychotic disturbance, mood disturbance, and anxiety; E78.5 Hyperlipidemia, unspecified; R62.7 Adult failure to thrive; E87.6 Hypokalemia; I48.91 Unspecified atrial fibrillation; K81.9 Cholecystitis, unspecified; N32.89 Other specified disorders of bladder; Z99.3 Dependence on wheelchair; Z68.24 Body mass index [BMI] 24.0-24.9, adult; Z79.84 Long term (current) use of oral hypoglycemic drugs; Z87.01 Personal history of pneumonia (recurrent); Z95.5 Presence of coronary angioplasty implant and graft; Z95.810 Presence of automatic (implantable) cardiac defibrillator; Z87.891 Personal history of nicotine dependence; Z86.73 Personal history of transient ischemic attack (TIA), and cerebral infarction without residual deficits; Z66 Do not resuscitate
CPT/HCPCS: 36415; 71045; 74177; 80053; 80069; 80074; 81001; 83605; 83690; 83735; 83880; 84100; 84132; 84295; 84300; 84484; 84550; 85025; 85610; 92526; 92610; 93005; 93225; 96361; 96374; 96375; 97162; 99284; A4649; J0612; J1644; J1815; J2405; J2470; J2543; J3010; J3475; J7030; Q9967; A9270